=== PATIENT | male | born 1955 | race American Indian/Alaskan Native ===

== ENCOUNTER 2018-07-23 21:49 | Observation (INO) | payer MEDICARE, MEDICAID ==
--- NOTE | 2018-07-23 22:22 | EDM.PDOC ---
ED HPI GENERAL MEDICAL PROBLEM - General Chief Complaint: Chest Pain Stated Complaint: chest pain Time Seen by Provider: 07/23/18 22:11 Source of Information: Reports: Patient, EMS, EMS Notes Reviewed History Limitations: Reports: No Limitations - History of Present Illness INITIAL COMMENTS - FREE TEXT/NARRATIVE: Patient is a 62-year-old gentleman who presents to the emergency Department this evening via EMS secondary to complaint of chest pain. Patient was given 4 baby aspirins and 2 nitroglycerin at the [facility], also given 4 mg of morphine on EMS transport. Pain began at 2000 tonight and described as aching, left lower chest and epigastric, and constant. This occurred at rest. Patient denies shortness of breath, fever, headache, nausea, vomiting, diarrhea, any alcohol intake for past 3 months. EKG performed by EMS was sent to [facility] for cardiology read. Personnel Consultant told EMS deckhand oyster dredge that the EKG was same as previous, and there was no concern for acute process Onset: Today Onset Date: 07/23/18 Onset Time: 20:00 Duration: Hour(s):, Waxing/Waning Location: Reports: Chest Quality: Reports: Ache Severity: Mild Improves with: Reports: None Worsens with: Reports: None Context: Reports: Other (At rest) Associated Symptoms: Reports: No Other Symptoms. Denies: Nausea/Vomiting, Shortness of Breath chest Pain Score (Numeric/FACES): 8 - Related Data Allergies Allergy/AdvReac Type Severity Reaction Status Date / Time mustard Allergy Vomiting Verified 07/23/18 22:30 Home Meds: Home Meds metFORMIN [Glucophage] 1 tab PO DAILY 08/25/15 [History] Aspirin 81 mg PO DAILY 03/14/17 [History] Folic Acid 800 mcg PO DAILY 03/15/17 [History] Insulin Aspart [NovoLOG] 13 unit SQ TID 03/15/17 [History] Insulin Detemir [Levemir] 31 unit SQ ASDIRECTED 03/15/17 [History] Lisinopril 20 mg PO DAILY 03/15/17 [History] Multivitamin [Daily Multiple Vitamin] 1 each PO DAILY 03/15/17 [History] Pantoprazole [ProTONIX] 40 mg PO ACBREAKFAST 03/15/17 [History] Thiamine HCl 100 mg PO BID 03/15/17 [History] atorvaSTATin [Lipitor] 20 mg PO ASDIRECTED 03/15/17 [History] Acetaminophen [Pain & Fever] 650 mg PO Q8H PRN 07/31/17 [History] Ibuprofen 400 mg PO Q4H PRN 07/31/17 [History] Magnesium Chloride [Slow-Mag] 2 tab PO BID 07/31/17 [History] Nitroglycerin 0.4 mg SL ASDIRECTED PRN 07/31/17 [History] Vitamin B Complex 1 each PO BID 07/31/17 [History] cloNIDine [cloNIDine HCl] 0.1 mg PO ASDIRECTED PRN 07/31/17 [History] hydrOXYzine HCl [Atarax] 25 mg PO BID 07/31/17 [History] hydroCHLOROthiazide [Hydrochlorothiazide] 12.5 mg PO DAILY 07/31/17 [History] levETIRAcetam [Keppra] 500 mg PO BID 07/31/17 [History] Past Medical History HEENT History: Reports: None Cardiovascular History: Reports: High Cholesterol, Hypertension Respiratory History: Reports: None Gastrointestinal History: Reports: Cirrhosis, Gastritis, GERD Genitourinary History: Reports: BPH, Renal Disease Musculoskeletal History: Reports: Other (See Below) Other Musculoskeletal History: muscle weakness Neurological History: Reports: TIA, Other (See Below) Other Neuro History: TBI. personality disorder Psychiatric History: Reports: Addiction Endocrine/Metabolic History: Reports: Diabetes, Type II Hematologic History: Reports: None Immunologic History: Reports: None Oncologic (Cancer) History: Reports: None Dermatologic History: Reports: None - Infectious Disease History Infectious Disease History: Reports: None - Past Surgical History Head Surgeries/Procedures: Reports: None GI Surgical History: Reports: Other (See Below) Social & Family History - Family History Family Medical History: Noncontributory - Caffeine Use Caffeine Use: Reports: Coffee ED ROS GENERAL - Review of Systems Review Of Systems: ROS reveals no pertinent complaints other than HPI. Constitutional: Reports: No Symptoms HEENT: Reports: No Symptoms Respiratory: Reports: No Symptoms Cardiovascular: Reports: Chest Pain Endocrine: Reports: No Symptoms GI/Abdominal: Reports: No Symptoms : Reports: No Symptoms Musculoskeletal: Reports: No Symptoms Skin: Reports: No Symptoms Neurological: Reports: No Symptoms Psychiatric: Reports: No Symptoms Hematologic/Lymphatic: Reports: No Symptoms Immunologic: Reports: No Symptoms ED EXAM, GENERAL - Physical Exam Exam: See Below Exam Limited By: No Limitations General Appearance: Alert, WD/WN, No Apparent Distress Eye Exam: Bilateral Eye: Normal Inspection Nose: Normal Inspection, Normal Mucosa, No Blood Throat/Mouth: Normal Inspection, Normal Oropharynx, No Airway Compromise Head: Atraumatic, Normocephalic Neck: Normal Inspection, Supple, Non-Tender Respiratory/Chest: No Respiratory Distress, Lungs Clear, Normal Breath Sounds, No Accessory Muscle Use Cardiovascular: Regular Rate, Rhythm, No Murmur GI/Abdominal: Normal Bowel Sounds, Soft, Non-Tender, No Abnormal Bruit Back Exam: Normal Inspection. No: CVA Tenderness (L), CVA Tenderness (R) Extremities: Normal Inspection, No Pedal Edema Neurological: Alert, Oriented, Normal Cognition Psychiatric: Normal Affect, Normal Mood Skin Exam: Warm, Dry, Intact, Normal Color, No Rash EKG INTERPRETATION EKG Date: 07/23/18 Time: 22:00 Rhythm: Other (Sinus rhythm with first-degree AV block) Rate (Beats/Min): 64 [place]: LAD-Left [place] Deviation P-Wave: Present QRS: Normal ST-T: Normal QT: Normal Comparison: No Change (Sep 16 2017) Course - Vital Signs Last Recorded V/S: Last Vital Signs Temp 97.6 F 07/23/18 21:49 Pulse 67 07/23/18 21:49 Resp 21 H 07/23/18 21:49 BP 111/56 L 07/23/18 21:49 Pulse Ox 98 07/23/18 21:49 - Orders/Labs/Meds Orders: Active Orders 24 hr Category Date Time Status EKG Documentation Completion [RC] ASDIRECTED Care 07/23/18 22:06 Active Chest 2V [CR] Stat Exams 07/23/18 22:05 Ordered EKG 12 Lead [EK] Routine Ther 07/23/18 22:05 Ordered Labs: Laboratory Tests 07/23/18 07/23/18 07/23/18 Range/Units 22:00 22:00 22:00 WBC 5.71 (5.00-10.00) 10^3/uL RBC 4.19 L (4.50-6.00) 10^6/uL Hgb 11.9 L (13.0-17.0) g/dL Hct 35.0 L (40.0-52.0) % MCV 83.5 (82.0-92.0) fL MCH 28.4 (27.0-31.0) pg MCHC 34.0 (32.0-36.0) g/dL RDW 13.3 (11.5-14.5) % Plt Count 180 (150-400) 10^3/uL MPV 9.9 (7.4-10.4) fL Immature Gran % (Auto) 0.4 (0.0-5.0) % Neut % (Auto) 45.1 L (50.0-70.0) % Lymph % (Auto) 33.6 (20.0-40.0) % [place] % (Auto) 11.6 H (2.0-8.0) % Eos % (Auto) 8.8 H (1.0-3.0) % Baso % (Auto) 0.5 (0.0-1.0) % Immature Gran # (Auto) 0.02 (0.00-0.50) 10^3/uL Neut # (Auto) 2.58 (2.50-7.00) 10^3/uL Lymph # (Auto) 1.92 (1.00-4.00) 10^3/uL [place] # (Auto) 0.66 (0.10-0.80) 10^3/uL Eos # (Auto) 0.50 H (0.10-0.30) 10^3/uL Baso # (Auto) 0.03 (0.00-0.10) 10^3/uL Sodium 141 (136-145) mmol/L Potassium 4.2 (3.3-5.3) mmol/L Chloride 108 (98-115) mmol/L Carbon Dioxide 20.6 L (21.0-32.0) mmol/L Anion Gap 16.6 H (5-15) mmol/L BUN 19 (6-25) mg/dL Creatinine 0.78 (0.51-1.17) mg/dL Est Cr Clr Drug Dosing 94.12 mL/min Estimated GFR (MDRD) > 60 mL/min Glucose 106 H (75 - 99) mg/dL Calcium 8.7 (8.7-10.3) mg/dL Total Bilirubin 0.5 (0.2-1.0) mg/dL AST 72 H (15-37) U/L ALT 69 (12-78) U/L Alkaline Phosphatase 149 H (46-116) IU/L Troponin I 0.06 (0.00-0.070) ng/mL Total Protein 7.8 (6.4-8.2) g/dL Albumin 3.19 (3.00-4.80) g/dL Lipase 128 (73-393) U/L Ethyl Alcohol 0 (NONE DETECTED) mg/dL - Radiology Interpretation Free Text/Narrative:: Chest x-ray shows no acute cardiopulmonary process - Re-Assessments/Exams Free Text/Narrative Re-Assessment/Exam: 07/23/18 23:09 Patient afebrile, vital signs stable, chest discomfort resolved. Discussed case with Jacquelyn Perdomo from [facility], she will admit for observation and follow. Departure - Departure Time of Disposition: 23:10 Disposition: Refer to Observation Condition: Fair Clinical Impression: Atypical chest pain Forms: ED Department Discharge - My Orders Last 24 Hours: My Active Orders 07/23/18 22:05 Chest 2V [CR] Stat EKG 12 Lead [EK] Routine 07/23/18 22:06 EKG Documentation Completion [RC] ASDIRECTED - Assessment/Plan Last 24 Hours: My Active Orders 07/23/18 22:05 Chest 2V [CR] Stat EKG 12 Lead [EK] Routine 07/23/18 22:06 EKG Documentation Completion [RC] ASDIRECTED Assessment:: Chest pain Plan: Admitted for observation
[2018-07-23 23:00] LABS: ANION GAP 16.6 mmol/L (5-15); CHLORIDE,CL 108 mmol/L (98-115); SODIUM,NA 141 mmol/L (136-145)
[2018-07-24] MEDS: Melatonin 3 MG Tab PO SCH (01:12)
[2018-07-24] MEDS ORDERED: EPINEPHrine 1:10,000 1 MG/10 ML Syringe IVPUSH PRN (02:27)
[2018-07-24] MEDS ORDERED: Atropine 0.1 MG/ML 10 ML Syringe IVPUSH PRN (02:27)
[2018-07-24] MEDS ORDERED: Lidocaine 2% 100 MG/5 ML Syringe IVPUSH PRN (02:27)
[2018-07-24] MEDS ORDERED: Nitroglycerin 0.4 MG Tab.SL SL PRN (02:27)
[2018-07-24 06:46] VITALS: BP 104/63
--- NOTE | 2018-07-24 08:05 | CR ---
[id number] RAD/RAD Chest PA And Lateral EXAM: RAD Chest PA And Lateral INDICATION: CHEST PAIN COMPARISON: July 31, 2017. DISCUSSION: Cardiomediastinal silhouette is stable in size and contour. Right infrahilar opacity not seen previously. Finding is nonspecific. Correlate for signs of infection, as developing pneumonia is possible. IMPRESSION: New right infrahilar opacity, described above. Shawn Interiano MD 07/24/18 0804 Thank you for allowing us to participate in the care of your patient.
--- NOTE | 2018-07-24 11:19 | PCM.HP ---
H&P History of Present Illness - General Date of Service: 07/24/18 Admit Problem/Dx: Admission Diagnosis/Problem Admission Diagnosis/Problem Chest pain Source of Information: Patient, Old Records History Limitations: Reports: No Limitations chest Pain Score (Numeric/FACES): 3 - Related Data Allergies/Adverse Reactions: Allergies Allergy/AdvReac Type Severity Reaction Status Date / Time mustard Allergy Vomiting Verified 07/23/18 22:30 Home Medications: Home Meds metFORMIN [Glucophage] 1 tab PO BID 08/25/15 [History] Aspirin 81 mg PO DAILY 03/14/17 [History] Folic Acid 800 mcg PO DAILY 03/15/17 [History] Insulin Aspart [NovoLOG] 15 unit SQ TID 03/15/17 [History] Multivitamin [Daily Multiple Vitamin] 1 each PO DAILY 03/15/17 [History] Thiamine HCl 100 mg PO DAILY 03/15/17 [History] atorvaSTATin [Lipitor] 20 mg PO DAILY 03/15/17 [History] Acetaminophen [Pain & Fever] 650 mg PO Q6H PRN 07/31/17 [History] Nitroglycerin 0.4 mg SL ASDIRECTED PRN 07/31/17 [History] Vitamin B Complex 1 each PO DAILY 07/31/17 [History] Albuterol [Proventil HFA] 1 puff INH Q4H PRN 07/24/18 [History] Bacitracin [Bacitracin Oint] 1 applic TOP DAILY 07/24/18 [History] Carvedilol 6.25 mg PO BID 07/24/18 [History] [place]/Min Oil/Deanne/Wool Alcoh [Eucerin Creme] 1 applic TOP BID 07/24/18 [ History] Cyanocobalamin (Vitamin B-12) [Vitamin B-12] 250 mcg PO DAILY 07/24/18 [History] Finasteride 5 mg PO DAILY 07/24/18 [History] Gabapentin [Neurontin] 300 mg PO TID 07/24/18 [History] Insulin Degludec [Tresiba] 50 unit SQ BID 07/24/18 [History] Insulin Degludec [Tresiba] 100 unit SQ DAILY 07/24/18 [History] Lisinopril 10 mg PO DAILY 07/24/18 [History] Melatonin 5 mg PO BEDTIME 07/24/18 [History] OLANZapine 20 mg PO 0900 07/24/18 [History] Omeprazole 20 mg PO BID 07/24/18 [History] Ranitidine [Zantac] 150 mg PO BID 07/24/18 [History] Past Medical History HEENT History: Reports: None Cardiovascular History: Reports: High Cholesterol, Hypertension Respiratory History: Reports: SOB Gastrointestinal History: Reports: Cirrhosis, Gastritis, GERD Genitourinary History: Reports: BPH, Renal Disease Musculoskeletal History: Reports: Fracture, Other (See Below) Other Musculoskeletal History: muscle weakness Neurological History: Reports: CVA, TIA, Other (See Below) Other Neuro History: TBI. personality disorder Psychiatric History: Reports: Addiction, Anxiety, Depression Other Psychiatric History: insomnia Endocrine/Metabolic History: Reports: Diabetes, Type II, Obesity/BMI 30+ Hematologic History: Reports: B12 Deficiency Immunologic History: Reports: None Oncologic (Cancer) History: Reports: None Dermatologic History: Reports: Decubitus Ulcer, Other (See Below) Other Dermatologic History: 3rd r. toe - Infectious Disease History Infectious Disease History: Reports: MRSA - Past Surgical History Head Surgeries/Procedures: Reports: None GI Surgical History: Reports: Other (See Below) Musculoskeletal Surgical History: Reports: Shoulder Surgery Social & Family History - Family History Family Medical History: Noncontributory - Tobacco Use Smoking Status *Q: Never Smoker Second Hand Smoke Exposure: No - Caffeine Use Caffeine Use: Reports: None - Alcohol Use Days Per Week of Alcohol Use: 7 Number of Drinks Per Day: 1 Total Drinks Per Week: 7 Date of Last Drink: 04/24/18 - Recreational Drug Use Recreational Drug Use: No Exam - Vital Signs Vital Signs: Last Vital Signs Temp 98.4 F 07/24/18 06:45 Pulse 67 07/24/18 06:45 Resp 18 07/24/18 06:45 BP 104/63 07/24/18 06:45 Pulse Ox 97 07/24/18 06:45 Weight: 233 lb - Patient Data Lab Results Last 24 hrs: Laboratory Results - last 24 hr 07/23/18 07/23/18 07/23/18 Range/Units 22:00 22:00 22:00 WBC 5.71 (5.00-10.00) 10^3/uL RBC 4.19 L (4.50-6.00) 10^6/uL Hgb 11.9 L (13.0-17.0) g/dL Hct 35.0 L (40.0-52.0) % MCV 83.5 (82.0-92.0) fL MCH 28.4 (27.0-31.0) pg MCHC 34.0 (32.0-36.0) g/dL RDW 13.3 (11.5-14.5) % Plt Count 180 (150-400) 10^3/uL MPV 9.9 (7.4-10.4) fL Immature Gran % (Auto) 0.4 (0.0-5.0) % Neut % (Auto) 45.1 L (50.0-70.0) % Lymph % (Auto) 33.6 (20.0-40.0) % [place] % (Auto) 11.6 H (2.0-8.0) % Eos % (Auto) 8.8 H (1.0-3.0) % Baso % (Auto) 0.5 (0.0-1.0) % Immature Gran # (Auto) 0.02 (0.00-0.50) 10^3/uL Neut # (Auto) 2.58 (2.50-7.00) 10^3/uL Lymph # (Auto) 1.92 (1.00-4.00) 10^3/uL [place] # (Auto) 0.66 (0.10-0.80) 10^3/uL Eos # (Auto) 0.50 H (0.10-0.30) 10^3/uL Baso # (Auto) 0.03 (0.00-0.10) 10^3/uL Sodium 141 (136-145) mmol/L Potassium 4.2 (3.3-5.3) mmol/L Chloride 108 (98-115) mmol/L Carbon Dioxide 20.6 L (21.0-32.0) mmol/L Anion Gap 16.6 H (5-15) mmol/L BUN 19 (6-25) mg/dL Creatinine 0.78 (0.51-1.17) mg/dL Est Cr Clr Drug Dosing 94.12 mL/min Estimated GFR (MDRD) > 60 mL/min Glucose 106 H (75 - 99) mg/dL POC Glucose (74-106) mg/dl Calcium 8.7 (8.7-10.3) mg/dL Total Bilirubin 0.5 (0.2-1.0) mg/dL AST 72 H (15-37) U/L ALT 69 (12-78) U/L Alkaline Phosphatase 149 H (46-116) IU/L Troponin I 0.06 (0.00-0.070) ng/mL Total Protein 7.8 (6.4-8.2) g/dL Albumin 3.19 (3.00-4.80) g/dL Lipase 128 (73-393) U/L Ethyl Alcohol 0 (NONE DETECTED) mg/dL 07/24/18 07/24/18 Range/Units 06:20 08:23 WBC (5.00-10.00) 10^3/uL RBC (4.50-6.00) 10^6/uL Hgb (13.0-17.0) g/dL Hct (40.0-52.0) % MCV (82.0-92.0) fL MCH (27.0-31.0) pg MCHC (32.0-36.0) g/dL RDW (11.5-14.5) % Plt Count (150-400) 10^3/uL MPV (7.4-10.4) fL Immature Gran % (Auto) (0.0-5.0) % Neut % (Auto) (50.0-70.0) % Lymph % (Auto) (20.0-40.0) % [place] % (Auto) (2.0-8.0) % Eos % (Auto) (1.0-3.0) % Baso % (Auto) (0.0-1.0) % Immature Gran # (Auto) (0.00-0.50) 10^3/uL Neut # (Auto) (2.50-7.00) 10^3/uL Lymph # (Auto) (1.00-4.00) 10^3/uL [place] # (Auto) (0.10-0.80) 10^3/uL Eos # (Auto) (0.10-0.30) 10^3/uL Baso # (Auto) (0.00-0.10) 10^3/uL Sodium (136-145) mmol/L Potassium (3.3-5.3) mmol/L Chloride (98-115) mmol/L Carbon Dioxide (21.0-32.0) mmol/L Anion Gap (5-15) mmol/L BUN (6-25) mg/dL Creatinine (0.51-1.17) mg/dL Est Cr Clr Drug Dosing mL/min Estimated GFR (MDRD) mL/min Glucose (75 - 99) mg/dL POC Glucose 118 H (74-106) mg/dl Calcium (8.7-10.3) mg/dL Total Bilirubin (0.2-1.0) mg/dL AST (15-37) U/L ALT (12-78) U/L Alkaline Phosphatase (46-116) IU/L Troponin I < 0.04 (0.00-0.070) ng/mL Total Protein (6.4-8.2) g/dL Albumin (3.00-4.80) g/dL Lipase (73-393) U/L Ethyl Alcohol (NONE DETECTED) mg/dL Result Diagrams: 07/23/18 22:00 07/23/18 22:00 Problem List Initiated/Reviewed/Updated: Yes Orders Last 24hrs: Active Orders 24 hr Category Date Time Status Patient Status [ADT] Routine ADT 07/23/18 23:11 Ordered Blood Glucose Check, Bedside [RC] TIDMEALS Care 07/24/18 00:36 Active Oxygen Therapy [RC] PRN Care 07/23/18 23:11 Active VTE/DVT Education [RC] PER UNIT ROUTINE Care 07/23/18 23:11 Active Vital Signs [RC] 0300,0700,1100,1500,1900,2300 Care 07/23/18 23:11 Active [employer] Diet [DIET] Diet 07/24/18 Breakfast Active Atropine [Atropine 0.1 MG/ML] Med 07/24/18 02:27 Active 0 mg IVPUSH ASDIRECTED PRN EPINEPHrine [EPINEPHrine 1:10,000] Med 07/24/18 02:27 Active 1 mg IVPUSH ASDIRECTED PRN Lidocaine 2% [Xylocaine 2%] Med 07/24/18 02:27 Active 0 mg IVPUSH ASDIRECTED PRN Melatonin Med 07/24/18 00:59 Active 6 mg PO BEDTIME Nitroglycerin [Nitrostat] Med 07/24/18 02:27 Active 0.4 mg SL ASDIRECTED PRN Resuscitation Status Routine Resus Stat 07/23/18 23:11 Ordered EKG 12 Lead [EK] Routine Ther 07/23/18 22:05 Ordered Medication Orders Atropine Sulfate (Atropine 0.1 Mg/Ml) 0 mg IVPUSH ASDIRECTED PRN PRN Reason: Heart Epinephrine HCl (Epinephrine 1:10,000) 1 mg IVPUSH ASDIRECTED PRN PRN Reason: Heart Lidocaine HCl (Xylocaine 2%) 0 mg IVPUSH ASDIRECTED PRN PRN Reason: Heart Melatonin (Melatonin) 6 mg PO BEDTIME JOURDAN Last Admin: 07/24/18 01:12 Dose: 6 mg Nitroglycerin (Nitrostat) 0.4 mg SL ASDIRECTED PRN PRN Reason: Heart Assessment/Plan Comment:: History of present illness 63-year-old male who resides in a local skilled nursing is admitted to the ED into observation last night due to complaints of chest pain. She stated the pain occurred at rest and it was more into his left lower chest and epigastric which was quite constant. care home staff gave the patient 4 baby aspirins along with 2 nitroglycerin and EMS in route to the hospital administered 4 mg of morphine. She stated his pain began at 1999 on the night of admission and he described it as aching, left lower chest and epigastric, and constant. At the time he was evaluated in the ED he stated he had no shortness of breath, fever, headache, nausea, vomiting, diarrhea, EKG performed by EMS was sent to [facility] for cardiology read. Associate Professor Of Biology told EMS roller staker that the EKG was same as previous, and there was no concern for acute process. He was admitted for rule out [place]. His initial troponin was normal. She does have significant risk factors including obesity, diabetes mellitus, hyperlipidemia, hypertension. Does take PPI therapy. Recently evaluated at the [facility], [place] was his insulin and metformin was increased Due to a rising hemoglobin A1c of 13%. Primary hospital problems Rule out [place], this has been ruled out via EKG and biochemical markers negative In review of his recent lower extremity arterial ultrasound patient demonstrates calcified atherosclerotic disease which will most definitely limits evaluation of the ABIs. However no significant macrovascular arterial insufficiency in either lower extremity at rest. Disposition, patient has ruled out for ACS however pretest probability of CAD is intermediate 2/2 hyperlipidemia, uncontrolled diabetes, hypertension and obesity. Will recommend outpatient stress imaging as doubtful patient can exercise
--- NOTE | 2018-07-24 11:56 | PCM.DCSUM1 ---
Discharge Summary - Hospital Course Diagnosis: Stroke: No - Discharge Data Discharge Date: 07/24/18 Discharge Disposition: DC/Tfer to [facility] Condition: Good - Patient Instructions Diet: Diabetic Diet Activity: As Tolerated Driving: Do Not Drive Showering/Bathing: May Shower Notify Provider of: Increased Pain, Nausea and/or Vomiting - Discharge Plan *PRESCRIPTION DRUG MONITORING PROGRAM REVIEWED*: Not Applicable *COPY OF PRESCRIPTION DRUG MONITORING REPORT IN PATIENT ANDREI: Not Applicable Prescriptions/Med Rec: Isosorbide Mononitrate [Imdur] 30 mg PO DAILY #30 tab.er Home Medications: Home Meds metFORMIN [Glucophage] 1 tab PO BID 08/25/15 [History] Aspirin 81 mg PO DAILY 03/14/17 [History] Folic Acid 800 mcg PO DAILY 03/15/17 [History] Insulin Aspart [NovoLOG] 15 unit SQ TID 03/15/17 [History] Multivitamin [Daily Multiple Vitamin] 1 each PO DAILY 03/15/17 [History] Thiamine HCl 100 mg PO DAILY 03/15/17 [History] atorvaSTATin [Lipitor] 20 mg PO DAILY 03/15/17 [History] Acetaminophen [Pain & Fever] 650 mg PO Q6H PRN 07/31/17 [History] Nitroglycerin 0.4 mg SL ASDIRECTED PRN 07/31/17 [History] Vitamin B Complex 1 each PO DAILY 07/31/17 [History] Albuterol [Proventil HFA] 1 puff INH Q4H PRN 07/24/18 [History] Bacitracin [Bacitracin Oint] 1 applic TOP DAILY 07/24/18 [History] Carvedilol 6.25 mg PO BID 07/24/18 [History] [place]/Min Oil/Deanne/Wool Alcoh [Eucerin Creme] 1 applic TOP BID 07/24/18 [ History] Cyanocobalamin (Vitamin B-12) [Vitamin B-12] 250 mcg PO DAILY 07/24/18 [History] Finasteride 5 mg PO DAILY 07/24/18 [History] Gabapentin [Neurontin] 300 mg PO TID 07/24/18 [History] Insulin Degludec [Tresiba] 50 unit SQ BID 07/24/18 [History] Insulin Degludec [Tresiba] 100 unit SQ DAILY 07/24/18 [History] Isosorbide Mononitrate [Imdur] 30 mg PO DAILY #30 tab.er 07/24/18 [Rx] Lisinopril 10 mg PO DAILY 07/24/18 [History] Melatonin 5 mg PO BEDTIME 07/24/18 [History] OLANZapine 20 mg PO 0900 07/24/18 [History] Omeprazole 20 mg PO BID 07/24/18 [History] Forms: ED Department Discharge - Discharge Summary/Plan Comment DC Time >30 min.: Yes Discharge Summary/Plan Comment: Discontinue Zantac as he is currently on PPI Imdur 30 mg ER newly added - Patient Data Vitals - Most Recent: Last Vital Signs Temp 98.4 F 07/24/18 06:45 Pulse 67 07/24/18 06:45 Resp 18 07/24/18 06:45 BP 104/63 07/24/18 06:45 Pulse Ox 97 07/24/18 06:45 Weight - Most Recent: 233 lb I&O - Last 24 hours: Intake & Output 07/23/18 07/24/18 07/24/18 22:59 06:59 14:59 Intake Total 640 Output Total 450 Balance 190 Lab Results - Last 24 hrs: Laboratory Results - last 24 hr 07/23/18 07/23/18 07/23/18 Range/Units 22:00 22:00 22:00 WBC 5.71 (5.00-10.00) 10^3/uL RBC 4.19 L (4.50-6.00) 10^6/uL Hgb 11.9 L (13.0-17.0) g/dL Hct 35.0 L (40.0-52.0) % MCV 83.5 (82.0-92.0) fL MCH 28.4 (27.0-31.0) pg MCHC 34.0 (32.0-36.0) g/dL RDW 13.3 (11.5-14.5) % Plt Count 180 (150-400) 10^3/uL MPV 9.9 (7.4-10.4) fL Immature Gran % (Auto) 0.4 (0.0-5.0) % Neut % (Auto) 45.1 L (50.0-70.0) % Lymph % (Auto) 33.6 (20.0-40.0) % [place] % (Auto) 11.6 H (2.0-8.0) % Eos % (Auto) 8.8 H (1.0-3.0) % Baso % (Auto) 0.5 (0.0-1.0) % Immature Gran # (Auto) 0.02 (0.00-0.50) 10^3/uL Neut # (Auto) 2.58 (2.50-7.00) 10^3/uL Lymph # (Auto) 1.92 (1.00-4.00) 10^3/uL [place] # (Auto) 0.66 (0.10-0.80) 10^3/uL Eos # (Auto) 0.50 H (0.10-0.30) 10^3/uL Baso # (Auto) 0.03 (0.00-0.10) 10^3/uL Sodium 141 (136-145) mmol/L Potassium 4.2 (3.3-5.3) mmol/L Chloride 108 (98-115) mmol/L Carbon Dioxide 20.6 L (21.0-32.0) mmol/L Anion Gap 16.6 H (5-15) mmol/L BUN 19 (6-25) mg/dL Creatinine 0.78 (0.51-1.17) mg/dL Est Cr Clr Drug Dosing 94.12 mL/min Estimated GFR (MDRD) > 60 mL/min Glucose 106 H (75 - 99) mg/dL POC Glucose (74-106) mg/dl Calcium 8.7 (8.7-10.3) mg/dL Total Bilirubin 0.5 (0.2-1.0) mg/dL AST 72 H (15-37) U/L ALT 69 (12-78) U/L Alkaline Phosphatase 149 H (46-116) IU/L Troponin I 0.06 (0.00-0.070) ng/mL Total Protein 7.8 (6.4-8.2) g/dL Albumin 3.19 (3.00-4.80) g/dL Lipase 128 (73-393) U/L Ethyl Alcohol 0 (NONE DETECTED) mg/dL 07/24/18 07/24/18 07/24/18 Range/Units 06:20 08:23 11:07 WBC (5.00-10.00) 10^3/uL RBC (4.50-6.00) 10^6/uL Hgb (13.0-17.0) g/dL Hct (40.0-52.0) % MCV (82.0-92.0) fL MCH (27.0-31.0) pg MCHC (32.0-36.0) g/dL RDW (11.5-14.5) % Plt Count (150-400) 10^3/uL MPV (7.4-10.4) fL Immature Gran % (Auto) (0.0-5.0) % Neut % (Auto) (50.0-70.0) % Lymph % (Auto) (20.0-40.0) % [place] % (Auto) (2.0-8.0) % Eos % (Auto) (1.0-3.0) % Baso % (Auto) (0.0-1.0) % Immature Gran # (Auto) (0.00-0.50) 10^3/uL Neut # (Auto) (2.50-7.00) 10^3/uL Lymph # (Auto) (1.00-4.00) 10^3/uL [place] # (Auto) (0.10-0.80) 10^3/uL Eos # (Auto) (0.10-0.30) 10^3/uL Baso # (Auto) (0.00-0.10) 10^3/uL Sodium (136-145) mmol/L Potassium (3.3-5.3) mmol/L Chloride (98-115) mmol/L Carbon Dioxide (21.0-32.0) mmol/L Anion Gap (5-15) mmol/L BUN (6-25) mg/dL Creatinine (0.51-1.17) mg/dL Est Cr Clr Drug Dosing mL/min Estimated GFR (MDRD) mL/min Glucose (75 - 99) mg/dL POC Glucose 118 H 236 H (74-106) mg/dl Calcium (8.7-10.3) mg/dL Total Bilirubin (0.2-1.0) mg/dL AST (15-37) U/L ALT (12-78) U/L Alkaline Phosphatase (46-116) IU/L Troponin I < 0.04 (0.00-0.070) ng/mL Total Protein (6.4-8.2) g/dL Albumin (3.00-4.80) g/dL Lipase (73-393) U/L Ethyl Alcohol (NONE DETECTED) mg/dL Med Orders - Current: Current Medications Atropine Sulfate (Atropine 0.1 Mg/Ml) 0 mg IVPUSH ASDIRECTED PRN PRN Reason: Heart Epinephrine HCl (Epinephrine 1:10,000) 1 mg IVPUSH ASDIRECTED PRN PRN Reason: Heart Lidocaine HCl (Xylocaine 2%) 0 mg IVPUSH ASDIRECTED PRN PRN Reason: Heart Melatonin (Melatonin) 6 mg PO BEDTIME JOURDAN Last Admin: 07/24/18 01:12 Dose: 6 mg Nitroglycerin (Nitrostat) 0.4 mg SL ASDIRECTED PRN PRN Reason: Heart
[2018-07-24] MEDS ORDERED: Melatonin 3 MG Tab PO SCH (21:00)
== END 2018-07-24 13:08 ==
LOC: KA.ED 21:49 → KA.MS 23:25 → KA.ED 23:25
PROVIDERS: ADMIT Physician Assistant Medical; ATTEND Nurse Practitioner Family
DX: R07.9 Chest pain, unspecified (principal); I10 Essential (primary) hypertension; E78.00 Pure hypercholesterolemia, unspecified; E11.9 Type 2 diabetes mellitus without complications; E66.9 Obesity, unspecified; Z68.32 Body mass index [BMI] 32.0-32.9, adult; E78.5 Hyperlipidemia, unspecified; Z79.4 Long term (current) use of insulin; Z79.899 Other long term (current) drug therapy; Z91.018 Allergy to other foods
CPT/HCPCS: 36415; 71046; 80053; 82962; 83690; 84484; 85025; 93005; 99285-25; G0378; G0480

== ENCOUNTER 2018-07-25 23:50 | Observation (INO) | payer MEDICARE, MEDICAID ==
[2018-07-26] MEDS: Aspirin 81 MG Tab.Chew PO ONE (00:30)
--- NOTE | 2018-07-26 00:48 | EDM.PDOC ---
ED HPI GENERAL MEDICAL PROBLEM - General Chief Complaint: Chest Pain Stated Complaint: chest pain Time Seen by Provider: 07/26/18 00:20 Source of Information: Reports: Patient, RN History Limitations: Reports: No Limitations - History of Present Illness INITIAL COMMENTS - FREE TEXT/NARRATIVE: 63-year-old gentleman resident not [place] longterm presents to emergency room brought in by EMS with complaints of chest pain. Chest pain started approximately 10:00 this evening he described the pain is short intermittent sharp pain lasting 3-4 seconds and occurring about every 10 minutes pain radiates down to his epigastric to left upper quadrant. This is similar to the episode that he was experiencing 2 days ago when he was brought into the emergency room he had an EKG shows normal sinus rhythm with left axis deviation nonspecific intraventricular conduction delay heart rate was 65 bpm there is no ST elevation. This is same as his prior EKG 2 days ago. Troponin level is normal BMP is less than 100. His white count is not elevated. 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 He quit drinking alcohol about 3-1/ 2 months ago. He was discharged back to the longterm the following day. In route a transportation he was given 1 nitroglycerin and had been given to prior nitroglycerin at the longterm he reports really no difference of his symptoms or pain. He rates it a 9 out of 10 when it occurs. Throughout his entire stay he is been conversive and appears to be very quite comfortable. He' s not had prior coronary catheterization. He is only on a baby aspirin daily no anticoagulation otherwise is seen in his medical chart upon review. Onset Date: 07/25/18 Onset Time: 10:00 Duration: Hour(s):, Intermittent Location: Reports: Abdomen Quality: Reports: Sharp Severity: Moderate Improves with: Reports: None Worsens with: Reports: None Associated Symptoms: Reports: Chest Pain, Shortness of Breath. Denies: Confusion, Cough, Diaphoresis, Fever/Chills, Headaches, Nausea/Vomiting, Syncope Treatments [employer]: Reports: Nitroglycerin (3 nitro prior to arrival) - Related Data Allergies Allergy/AdvReac Type Severity Reaction Status Date / Time mustard Allergy Vomiting Verified 07/26/18 00:11 Home Meds: Home Meds metFORMIN [Glucophage] 1 tab PO BID 08/25/15 [History] Aspirin 81 mg PO DAILY 03/14/17 [History] Folic Acid 800 mcg PO DAILY 03/15/17 [History] Insulin Aspart [NovoLOG] 15 unit SQ TID 03/15/17 [History] Multivitamin [Daily Multiple Vitamin] 1 each PO DAILY 03/15/17 [History] Thiamine HCl 100 mg PO DAILY 03/15/17 [History] atorvaSTATin [Lipitor] 20 mg PO DAILY 03/15/17 [History] Acetaminophen [Pain & Fever] 650 mg PO Q6H PRN 07/31/17 [History] Nitroglycerin 0.4 mg SL ASDIRECTED PRN 07/31/17 [History] Vitamin B Complex 1 each PO DAILY 07/31/17 [History] Albuterol [Proventil HFA] 1 puff INH Q4H PRN 07/24/18 [History] Bacitracin [Bacitracin Oint] 1 applic TOP DAILY 07/24/18 [History] Carvedilol 6.25 mg PO BID 07/24/18 [History] [place]/Min Oil/Deanne/Wool Alcoh [Eucerin Creme] 1 applic TOP BID 07/24/18 [ History] Cyanocobalamin (Vitamin B-12) [Vitamin B-12] 250 mcg PO DAILY 07/24/18 [History] Finasteride 5 mg PO DAILY 07/24/18 [History] Gabapentin [Neurontin] 300 mg PO TID 07/24/18 [History] Insulin Degludec [Tresiba] 50 unit SQ BID 07/24/18 [History] Insulin Degludec [Tresiba] 100 unit SQ DAILY 07/24/18 [History] Isosorbide Mononitrate [Imdur] 30 mg PO DAILY #30 tab.er 07/24/18 [Rx] Lisinopril 10 mg PO DAILY 07/24/18 [History] Melatonin 5 mg PO BEDTIME 07/24/18 [History] OLANZapine 20 mg PO 0900 07/24/18 [History] Omeprazole 20 mg PO BID 07/24/18 [History] Past Medical History HEENT History: Reports: None Cardiovascular History: Reports: High Cholesterol, Hypertension Respiratory History: Reports: SOB Gastrointestinal History: Reports: Cirrhosis, Gastritis, GERD Genitourinary History: Reports: BPH, Renal Disease Musculoskeletal History: Reports: Fracture, Other (See Below) Other Musculoskeletal History: muscle weakness Neurological History: Reports: CVA, TIA, Other (See Below) Other Neuro History: TBI. personality disorder Psychiatric History: Reports: Addiction, Anxiety, Depression Other Psychiatric History: insomnia Endocrine/Metabolic History: Reports: Diabetes, Type II, Obesity/BMI 30+ Hematologic History: Reports: B12 Deficiency Immunologic History: Reports: None Oncologic (Cancer) History: Reports: None Dermatologic History: Reports: Decubitus Ulcer, Other (See Below) Other Dermatologic History: 3rd r. toe - Infectious Disease History Infectious Disease History: Reports: MRSA - Past Surgical History Head Surgeries/Procedures: Reports: None GI Surgical History: Reports: Other (See Below) Musculoskeletal Surgical History: Reports: Shoulder Surgery Social & Family History - Family History Family Medical History: Noncontributory - Caffeine Use Caffeine Use: Reports: None ED ROS GENERAL - Review of Systems Review Of Systems: See Below Constitutional: Denies: Fever, Chills HEENT: Reports: No Symptoms Respiratory: Reports: Shortness of Breath. Denies: Cough Cardiovascular: Reports: Chest Pain, Dyspnea on Exertion, Edema (legs mild) Endocrine: Reports: High Glucose GI/Abdominal: Reports: Abdominal Pain (radiates to LUQ). Denies: Diarrhea : Reports: No Symptoms Musculoskeletal: Reports: No Symptoms Skin: Denies: Cyanosis ED EXAM, GENERAL - Physical Exam Exam: See Below Exam Limited By: No Limitations General Appearance: Alert, WD/WN, No Apparent Distress Eye Exam: Bilateral Eye: EOMI, PERRL Ears: Hearing Grossly Normal Ear Exam: Bilateral Ear: Foreign Body (Cerumen impaction is impairing visualization of the TMs bilaterally) Nose: Normal Inspection Throat/Mouth: Normal Lips, Normal Gums, Normal Oropharynx, Normal Voice, No Airway Compromise Head: Atraumatic Neck: Normal Inspection, Supple, Non-Tender, Full Range of Motion. No: Lymphadenopathy (L), Lymphadenopathy (R) Respiratory/Chest: No Respiratory Distress, Lungs Clear, Normal Breath Sounds, No Accessory Muscle Use, Other (Patient reports tenderness to palpation along the chest on the left side) Cardiovascular: Normal Peripheral Pulses, Regular Rate, Rhythm, No JVD, No Murmur Peripheral Pulses: 2+: Carotid (L), Carotid (R), Dorsalis Pedis (L), Dorsalis Pedis (R) GI/Abdominal: Normal Bowel Sounds, Soft, Non-Tender, No Abnormal Bruit. No: Guarding, Rigid, Rebound Back Exam: Normal Inspection, Full Range of Motion Extremities: Normal Inspection, Normal Range of Motion, Pedal Edema (mild) Neurological: Alert, Oriented, CN II-XII Intact, Normal Cognition Psychiatric: Normal Mood, Flat Affect Skin Exam: Warm, Dry, Intact, Normal Color, No Rash. No: Diaphoretic Lymphatic: No Adenopathy EKG INTERPRETATION EKG Date: 07/26/18 Time: 00:20 Rhythm: NSR Rate (Beats/Min): 65 [place]: LAD-Left [place] Deviation P-Wave: Present QRS: Normal ST-T: Depressed QT: Prolonged Comparison: No Change EKG Interpretation Comments: Normal sinus rhythm Left axis deviation Nonspecific intraventricular conduction delay Abnormal ECG Course - Vital Signs Last Recorded V/S: Last Vital Signs Temp 97.6 F 07/25/18 23:50 Pulse 69 07/25/18 23:50 Resp 16 07/25/18 23:50 BP 115/62 07/25/18 23:50 Pulse Ox 97 07/25/18 23:50 - Orders/Labs/Meds Orders: Active Orders 24 hr Category Date Time Status EKG Documentation Completion [RC] ASDIRECTED Care 07/26/18 00:12 Active CXR [Chest 2V] [CR] Stat Exams 07/26/18 00:45 Ordered EKG 12 Lead [EK] Routine Ther 07/26/18 00:11 Ordered Labs: Laboratory Tests 07/26/18 07/26/18 07/26/18 Range/Units 00:26 00:26 00:27 WBC 6.68 (5.00-10.00) 10^3/uL RBC 3.72 L (4.50-6.00) 10^6/uL Hgb 10.7 L (13.0-17.0) g/dL Hct 31.0 L (40.0-52.0) % MCV 83.3 (82.0-92.0) fL MCH 28.8 (27.0-31.0) pg MCHC 34.5 (32.0-36.0) g/dL RDW 13.3 (11.5-14.5) % Plt Count 180 (150-400) 10^3/uL MPV 9.2 (7.4-10.4) fL Add Manual Diff Yes Neutrophils % (Manual) 53 (50-70) % Lymphocytes % (Manual) 27 (20-40) % Monocytes % (Manual) 10 H (2-8) % Eosinophils % (Manual) 10 H (1-3) % Absolute Neutrophils 3.5404 Lymphocytes # (Manual) 1.8036 Monocytes # (Manual) 0.6680 Eosinophils # (Manual) 0.6680 Sodium 143 (136-145) mmol/L Potassium 4.3 (3.3-5.3) mmol/L Chloride 107 (98-115) mmol/L Carbon Dioxide 23.6 (21.0-32.0) mmol/L Anion Gap 16.7 H (5-15) mmol/L BUN 15 (6-25) mg/dL Creatinine 0.71 (0.51-1.17) mg/dL Est Cr Clr Drug Dosing 100.35 mL/min Estimated GFR (MDRD) > 60 mL/min Glucose 75 (75 - 99) mg/dL Calcium 9.1 (8.7-10.3) mg/dL Troponin I 0.04 (0.00-0.070) ng/mL B-Natriuretic Peptide 87 (0-100) pg/mL Meds: Medications Discontinued Medications Generic Name Dose Route Start Last Admin Trade Name [place] PRN Reason Stop Dose Admin Aspirin Confirm 07/26/18 00:27 Aspirin Administered 07/26/18 00:28 Dose 81 mg .ROUTE .STK-MED ONE Aspirin 324 mg 07/26/18 01:10 Aspirin PO 07/26/18 01:11 ONETIME ONE Ketorolac Tromethamine 30 mg 07/26/18 01:10 Toradol IM 07/26/18 01:11 ONETIME ONE Morphine Sulfate 2 mg 07/26/18 00:12 Morphine IVPUSH 07/26/18 00:13 ONETIME ONE - Re-Assessments/Exams Free Text/Narrative Re-Assessment/Exam: 07/26/18 01:31 Patient was given 4 mg of morphine IM and 30 mg of IM Toradol Departure - Departure Time of Disposition: 01:58 Disposition: Refer to Observation Condition: Good Clinical Impression: Atypical chest pain Forms: ED Department Discharge - My Orders Last 24 Hours: My Active Orders 07/26/18 00:11 EKG 12 Lead [EK] Routine 07/26/18 00:12 EKG Documentation Completion [RC] ASDIRECTED 07/26/18 00:45 CXR [Chest 2V] [CR] Stat - Assessment/Plan Last 24 Hours: My Active Orders 07/26/18 00:11 EKG 12 Lead [EK] Routine 07/26/18 00:12 EKG Documentation Completion [RC] ASDIRECTED 07/26/18 00:45 CXR [Chest 2V] [CR] Stat Assessment:: Atypical chest pain Plan: 1. Patient is going to be admitted observational status on telemetry. 2. I have discussed this with [place] provider who will take over patient's care in the hospital. 3. He will likely need further cardiac workup. His cardiac lab work as well as EKG and chest x-ray are all normal will repeat his troponin early a.m. draw.
[2018-07-26] MEDS: Morphine 2 MG/ML Syringe IVPUSH ONE (00:50)
[2018-07-26 00:55] LABS: ANION GAP 16.7 mmol/L (5-15); CHLORIDE,CL 107 mmol/L (98-115); SODIUM,NA 143 mmol/L (136-145)
[2018-07-26] MEDS: Ketorolac 30 MG/ML SDV IM ONE (01:28)
[2018-07-26] MEDS: Aspirin 81 MG Tab.Chew ONE (01:39)
[2018-07-26] MEDS ORDERED: Acetaminophen 325 MG Tab PO PRN ×2 (01:59→09:09)
[2018-07-26] MEDS: GI Cocktail 45 ML BOTTLE PO ONE (01:59)
[2018-07-26] MEDS: Aluminum Hydroxide/Magnesium Hydroxide Susp 30 ML Cup PO PRN (04:30)
[2018-07-26 07:59] VITALS: BP 98/55
--- NOTE | 2018-07-26 08:36 | CR ---
[id number] RAD/RAD Chest PA And Lateral EXAM: RAD Chest PA And Lateral INDICATION: SOB; CHEST PAIN COMPARISON: July 23, 2018. DISCUSSION: Cardiomediastinal silhouette is normal in size and contour. Previously seen right infrahilar opacity is not visualized on today's examination. Lungs are clear. Bone bridge between the right 7th and 8th posterior ribs. IMPRESSION: No acute findings in the chest. Shawn Interiano MD 07/26/18 0835 Thank you for allowing us to participate in the care of your patient.
[2018-07-26] MEDS ORDERED: Nitroglycerin 0.4 MG Tab.SL SL PRN (09:09)
[2018-07-26] MEDS ORDERED: Non-Formulary Medication 1 Each (Albuterol 1 PUFF) INH PRN (09:09)
[2018-07-26] MEDS ORDERED: Carvedilol 6.25 MG Tab PO SCH (09:15)
[2018-07-26] MEDS ORDERED: Folic Acid 1 MG Tab PO SCH (09:15)
[2018-07-26] MEDS ORDERED: METFORMIN PO SCH (09:15)
[2018-07-26] MEDS ORDERED: Thiamine 100 MG Tab PO SCH (09:15)
[2018-07-26] MEDS ORDERED: Non-Formulary Medication 1 Each (Vitamin B Complex [Vitamin B Complex] 1 EACH) PO SCH (09:15)
[2018-07-26] MEDS ORDERED: Cyanocobalamin (Vitamin B12) 500 MCG Tab PO SCH (09:15)
[2018-07-26] MEDS ORDERED: Non-Formulary Medication 1 Each (Omeprazole [Omeprazole] 20 MG) PO SCH (09:15)
[2018-07-26] MEDS ORDERED: Lisinopril 5 MG Tab PO SCH (09:15)
[2018-07-26] MEDS ORDERED: Non-Formulary Medication 1 Each (Olanzapine [Olanzapine] 20 MG) PO SCH (09:30)
--- NOTE | 2018-07-26 12:15 | PCM.HP ---
H&P History of Present Illness - General Date of Service: 07/26/18 Admit Problem/Dx: Admitted with atypical chest pain. Discharge dx costochondritis. Source of Information: Patient, Other (ER report and notes) History Limitations: Reports: No Limitations - History of Present Illness Initial Comments - Free Text/Narative: Pt is a resident at [facility]. He was hospitalized 2 days ago for 48 hours with complaints of chest pain. Full cardiac work up was done and found to be negative. Last night he reported to the [place] staff that he was having chest pain. After 2nd Nitro, without any improvement in the chest pain, he was sent by ambulance to [facility] ER. In ER he described the pain as short intermittent sharp pain lasting 3-4 seconds and occurring about every 10 minutes. Pain radiates down to his epigastric area and to left upper quadrant. This is similar to the episode that he was experiencing 2 days ago when he was brought into the emergency room. He had an EKG that shows normal sinus rhythm with left axis deviation nonspecific intraventricular conduction delay heart rate was 65 bpm [address] is no ST elevation. This is same as his prior EKG 2 days ago. Troponin level is normal, BMP is less than 100. His white count is not elevated. 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 He quit drinking alcohol about 3-1/2 months ago. He was discharged back to the skilled nursing the following day. En route to ER he was given 1 nitroglycerin and had been given 2 nitroglycerin prior to ambulance transport at the skilled nursing. He reports really no difference of his symptoms or pain. He rates it a 9 out of 10 when it occurs. Throughout his entire stay he is been conversive and appears to be very quite comfortable. He's not had prior coronary catheterization. He is only on a baby aspirin daily no anticoagulation otherwise is seen in his medical chart upon review. On exam today he winces with sharp pain with light palpation over left lower ribs. He reports this is the same pain that he experiences that has brought him in to ER. He denies any concurrent shortness of breath, diaphoresis. He does report 3 soft stools this morning after apple juice. Pt is diabetic with poorly controlled blood sugars. He has been on Novolog 15 units tid with meals as well as tresiba u100 50 units BID in the skilled nursing. His insulin is being switched over to Tresiba U200 100 units daily. He did have his tresiba u100, 50 units last night but has not had any tresiba this morning in the hospital. He needs to have been off the U100 insulin for 24 hours prior to changing to the Tresiba u200. He is to start his first dose of the Tresiba u200 at 100 units tonight at [facility]. Onset of Symptoms: Reports: Unknown/Unsure Symptom Onset Date: 07/25/18 Symptom Onset Time: 22:00 Duration of Symptoms: Reports: Minutes: Location: Reports: Other (left lower rib, left upper abdominal quadrant and epigastric area) Quality: Reports: Stabbing Severity: Severe Improves with: Reports: Other (lying still) Worsens with: Reports: Movement Associated Symptoms: Reports: No Other Symptoms, Other (refers to this as chest pain but holds his hand over lower ribs and upper abdomen) Left Chest Pain Score (Numeric/FACES): 7 - Related Data Allergies/Adverse Reactions: Allergies Allergy/AdvReac Type Severity Reaction Status Date / Time mustard Allergy Vomiting Verified 07/26/18 00:11 Home Medications: Home Meds metFORMIN [Glucophage] 1 tab PO BID 08/25/15 [History] Aspirin 81 mg PO DAILY 03/14/17 [History] Folic Acid 1 mg PO DAILY 03/15/17 [History] Insulin Aspart [NovoLOG] 15 unit SQ TID 03/15/17 [History] Multivitamin [Daily Multiple Vitamin] 1 each PO DAILY 03/15/17 [History] Thiamine HCl 100 mg PO DAILY 03/15/17 [History] atorvaSTATin [Lipitor] 20 mg PO DAILY 03/15/17 [History] Acetaminophen [Pain & Fever] 650 mg PO Q6H PRN 07/31/17 [History] Nitroglycerin 0.4 mg SL ASDIRECTED PRN 07/31/17 [History] Vitamin B Complex 1 each PO DAILY 07/31/17 [History] Albuterol [Proventil HFA] 1 puff INH Q4H PRN 07/24/18 [History] Bacitracin [Bacitracin Oint] 1 applic TOP DAILY 07/24/18 [History] Carvedilol 6.25 mg PO BID 07/24/18 [History] Cyanocobalamin (Vitamin B-12) [Vitamin B-12] 250 mcg PO DAILY 07/24/18 [History] Finasteride 5 mg PO DAILY 07/24/18 [History] Gabapentin [Neurontin] 600 mg PO TID 07/24/18 [History] Lisinopril 10 mg PO DAILY 07/24/18 [History] Melatonin 5 mg PO BEDTIME 07/24/18 [History] OLANZapine 20 mg PO 0900 07/24/18 [History] Omeprazole 20 mg PO BID 07/24/18 [History] Insulin Degludec [Tresiba] 100 unit SQ BEDTIME 07/26/18 [History] Isosorbide Mononitrate [Imdur] 30 mg PO BEDTIME 07/26/18 [History] Past Medical History HEENT History: Reports: None Cardiovascular History: Reports: High Cholesterol, Hypertension, RI Respiratory History: Reports: SOB Gastrointestinal History: Reports: Cirrhosis, Gastritis, GERD Genitourinary History: Reports: BPH, Renal Disease Musculoskeletal History: Reports: Fracture, Other (See Below) Other Musculoskeletal History: muscle weakness Neurological History: Reports: CVA, TIA, Other (See Below) Other Neuro History: TBI. personality disorder Psychiatric History: Reports: Addiction, Anxiety, Depression Other Psychiatric History: insomnia Endocrine/Metabolic History: Reports: Diabetes, Type II, Obesity/BMI 30+ Hematologic History: Reports: B12 Deficiency Immunologic History: Reports: None Oncologic (Cancer) History: Reports: None Dermatologic History: Reports: Decubitus Ulcer, Other (See Below) Other Dermatologic History: 3rd r. toe - Infectious Disease History Infectious Disease History: Reports: MRSA - Past Surgical History Head Surgeries/Procedures: Reports: None GI Surgical History: Reports: Other (See Below) Musculoskeletal Surgical History: Reports: Shoulder Surgery Social & Family History - Family History Family Medical History: Noncontributory - Caffeine Use Caffeine Use: Reports: None - Alcohol Use Days Per Week of Alcohol Use: 5 Number of Drinks Per Day: 4 Total Drinks Per Week: 20 Date of Last Drink: 04/25/18 - Recreational Drug Use Recreational Drug Use: No H&P Review of Systems - Review of Systems: Review Of Systems: See Below General: Reports: No Symptoms HEENT: Reports: No Symptoms Pulmonary: Reports: No Symptoms Cardiovascular: Reports: Chest Pain. Denies: Edema Gastrointestinal: Reports: Other (three stools this morning) Genitourinary: Reports: No Symptoms Musculoskeletal: Reports: Other (left lower chest wall pain) Psychiatric: Reports: Other (history or alcohol abuse. On olanzapine) Neurological: Reports: No Symptoms Hematologic/Lymphatic: Reports: No Symptoms, Anemia (history of anemia) Immunologic: Reports: No Symptoms Exam - Exam Exam: See Below - Vital Signs Vital Signs: Last Vital Signs Temp 97.9 F 07/26/18 06:47 Pulse 64 07/26/18 06:47 Resp 20 07/26/18 06:47 BP 110/54 L 07/26/18 06:47 Pulse Ox 98 07/26/18 06:47 Weight: 225 lb - Exam Quality Assessment: No: Supplemental Oxygen General: Alert, Oriented, Cooperative Neck: Supple Lungs: Wheezing (wheezing bilateral bases) Cardiovascular: Regular Rate, Regular Rhythm, Normal S1, Normal S2 GI/Abdominal Exam: Normal Bowel Sounds, Soft, Non-Tender, No Distention (Male) Exam: Deferred Rectal (Males) Exam: Deferred Extremities: No Pedal Edema Skin: Warm, Dry, Intact Neuro Extensive - Mental Status: Alert, Oriented x3, Normal Mood/Affect Psychiatric: Alert, Normal Affect, Normal Mood - Patient Data Lab Results Last 24 hrs: Laboratory Results - last 24 hr 07/26/18 07/26/18 07/26/18 Range/Units 00:26 00:26 00:27 WBC 6.68 (5.00-10.00) 10^3/uL RBC 3.72 L (4.50-6.00) 10^6/uL Hgb 10.7 L (13.0-17.0) g/dL Hct 31.0 L (40.0-52.0) % MCV 83.3 (82.0-92.0) fL MCH 28.8 (27.0-31.0) pg MCHC 34.5 (32.0-36.0) g/dL RDW 13.3 (11.5-14.5) % Plt Count 180 (150-400) 10^3/uL MPV 9.2 (7.4-10.4) fL Add Manual Diff Yes Neutrophils % (Manual) 53 (50-70) % Lymphocytes % (Manual) 27 (20-40) % Monocytes % (Manual) 10 H (2-8) % Eosinophils % (Manual) 10 H (1-3) % Absolute Neutrophils 3.5404 Lymphocytes # (Manual) 1.8036 Monocytes # (Manual) 0.6680 Eosinophils # (Manual) 0.6680 Sodium 143 (136-145) mmol/L Potassium 4.3 (3.3-5.3) mmol/L Chloride 107 (98-115) mmol/L Carbon Dioxide 23.6 (21.0-32.0) mmol/L Anion Gap 16.7 H (5-15) mmol/L BUN 15 (6-25) mg/dL Creatinine 0.71 (0.51-1.17) mg/dL Est Cr Clr Drug Dosing 100.35 mL/min Estimated GFR (MDRD) > 60 mL/min Glucose 75 (75 - 99) mg/dL POC Glucose (74-106) mg/dl Calcium 9.1 (8.7-10.3) mg/dL Troponin I 0.04 (0.00-0.070) ng/mL B-Natriuretic Peptide 87 (0-100) pg/mL 07/26/18 07/26/18 07/26/18 Range/Units 03:08 04:25 07:25 WBC (5.00-10.00) 10^3/uL RBC (4.50-6.00) 10^6/uL Hgb (13.0-17.0) g/dL Hct (40.0-52.0) % MCV (82.0-92.0) fL MCH (27.0-31.0) pg MCHC (32.0-36.0) g/dL RDW (11.5-14.5) % Plt Count (150-400) 10^3/uL MPV (7.4-10.4) fL Add Manual Diff Neutrophils % (Manual) (50-70) % Lymphocytes % (Manual) (20-40) % Monocytes % (Manual) (2-8) % Eosinophils % (Manual) (1-3) % Absolute Neutrophils Lymphocytes # (Manual) Monocytes # (Manual) Eosinophils # (Manual) Sodium (136-145) mmol/L Potassium (3.3-5.3) mmol/L Chloride (98-115) mmol/L Carbon Dioxide (21.0-32.0) mmol/L Anion Gap (5-15) mmol/L BUN (6-25) mg/dL Creatinine (0.51-1.17) mg/dL Est Cr Clr Drug Dosing mL/min Estimated GFR (MDRD) mL/min Glucose (75 - 99) mg/dL POC Glucose 81 169 H (74-106) mg/dl Calcium (8.7-10.3) mg/dL Troponin I 0.06 (0.00-0.070) ng/mL B-Natriuretic Peptide (0-100) pg/mL Result Diagrams: 07/26/18 00:26 07/26/18 00:26 - Problem List (1) Atypical chest pain SNOMED Code(s): 595270088 ICD Code: R07.89 - OTHER CHEST PAIN Status: Acute Current Visit: Yes (2) Costochondral chest pain SNOMED Code(s): 262326948, 266063934 ICD Code: R07.1 - CHEST PAIN ON BREATHING Status: Acute Current Visit: Yes Problem List Initiated/Reviewed/Updated: Yes Orders Last 24hrs: Active Orders 24 hr Category Date Time Status Patient Status [ADT] Routine ADT 07/26/18 01:59 Ordered Cardiac Monitoring [RC] 0300,0700,1100,1500,1900,2300 Care 07/26/18 02:10 Active EKG Documentation Completion [RC] ASDIRECTED Care 07/26/18 00:12 Active Intake and Output [RC] 1400,2200,0600 Care 07/26/18 02:01 Active Oxygen Therapy [RC] PRN Care 07/26/18 02:01 Active Pulse Oximetry [RC] PRN Care 07/26/18 02:01 Active Ready for Discharge [RC] PER UNIT ROUTINE Care 07/26/18 11:57 Ordered Up With Assistance [RC] ASDIRECTED Care 07/26/18 01:59 Active Vital Signs [RC] 0300,0700,1100,1500,1900,2300 Care 07/26/18 01:59 Active Heart Healthy Diet [DIET] Diet 07/26/18 Breakfast Active Acetaminophen [Tylenol] Med 07/26/18 01:59 Active 650 mg PO Q4H PRN Acetaminophen [Tylenol] Med 07/26/18 09:09 Active 650 mg PO Q6H PRN Albuterol Med 07/26/18 09:09 Pending 1 puff INH Q4H PRN Alum Hydroxide/Mag Hydroxide [Mag-Al Susp] Med 07/26/18 04:06 Active 30 ml PO Q4H PRN Aspirin [Halfprin] Med 07/26/18 09:30 Active 81 mg PO DAILY Carvedilol [Coreg] Med 07/26/18 09:15 Pending 6.25 mg PO BID Cyanocobalamin (Vitamin B12) [Vitamin B12] Med 07/26/18 09:15 Pending 250 mcg PO DAILY Finasteride [Proscar] Med 07/26/18 20:00 Pending 5 mg PO DAILY Folic Acid Med 07/26/18 09:15 Pending 1 mg PO DAILY Gabapentin [Neurontin] Med 07/26/18 14:00 Pending 600 mg PO TID Insulin Aspart [NovoLOG] Med 07/26/18 14:00 Pending 15 unit SQ TID Isosorbide Mononitrate [Imdur] Med 07/26/18 21:00 Pending 30 mg PO BEDTIME Lisinopril [Prinivil] Med 07/26/18 09:15 Pending 10 mg PO DAILY Melatonin [Melatonin] Med 07/26/18 21:00 Pending 5 mg PO BEDTIME Nitroglycerin [Nitrostat] Med 07/26/18 09:09 Pending 0.4 mg SL ASDIRECTED PRN OLANZapine [OLANZapine] Med 07/26/18 09:30 Pending 20 mg PO 0900 Omeprazole [Omeprazole] Med 07/26/18 09:15 Pending 20 mg PO BID Thiamine [Vitamin B-1] Med 07/26/18 09:15 Pending 100 mg PO DAILY Vitamin B Complex [Vitamin B Complex] Med 07/26/18 09:15 Pending 1 each PO DAILY atorvaSTATin [Lipitor] Med 07/26/18 20:00 Pending 20 mg PO DAILY metFORMIN [Glucophage] Med 07/26/18 09:15 Pending 1 tab PO BID EKG 12 Lead [EK] Routine Ther 07/26/18 00:11 Ordered Medication Orders Acetaminophen (Tylenol) 650 mg PO Q4H PRN PRN Reason: analgesia/fever Acetaminophen (Tylenol) 650 mg PO Q6H PRN PRN Reason: Pain Al Hydroxide/Mg Hydroxide (Mag-Al Susp) 30 ml PO Q4H PRN PRN Reason: Indigestion Last Admin: 07/26/18 04:30 Dose: 30 ml Aspirin (Halfprin) 81 mg PO DAILY [facility] Carvedilol (Coreg) 6.25 mg PO BID [facility] Cyanocobalamin (Vitamin B12) 250 mcg PO DAILY [facility] Finasteride (Proscar) 5 mg PO DAILY [facility] Folic Acid (Folic Acid) 1 mg PO DAILY [facility] Gabapentin (Neurontin) 600 mg PO TID [facility] Isosorbide Mononitrate (Imdur) 30 mg PO BEDTIME [facility] Lisinopril (Prinivil) 10 mg PO DAILY [facility] Nitroglycerin (Nitrostat) 0.4 mg SL ASDIRECTED PRN PRN Reason: Chest Pain Non-Formulary Medication (Albuterol) 1 puff INH Q4H PRN PRN Reason: Shortness of Breath Non-Formulary Medication (Atorvastatin [Lipitor]) 20 mg PO DAILY [facility] Non-Formulary Medication (Insulin Aspart [Novolog]) 15 unit SQ TID [facility] Non-Formulary Medication (Melatonin [Melatonin]) 5 mg PO BEDTIME [facility] Non-Formulary Medication (Metformin [Glucophage]) 1 tab PO BID [facility] Non-Formulary Medication (Olanzapine [Olanzapine]) 20 mg PO 0900 [facility] Non-Formulary Medication (Omeprazole [Omeprazole]) 20 mg PO BID [facility] Non-Formulary Medication (Vitamin B Complex [Vitamin B Complex]) 1 each PO DAILY [facility] Thiamine HCl (Vitamin B-1) 100 mg PO DAILY [facility] Assessment/Plan Comment:: atypical chest pain: cardiac work up negative. Discharge diagnosis costochondritis. Pt will be discharged back to [place] on Ibuprofen 600 mg tid x 2 weeks. take Ibuprofen with food. Diabetes: Pt did not have his tresiba u100 this morning, thus he can begin the tresiba u200 100 units tonight at the skilled nursing. I have discussed this with nurse Barbara at the skilled nursing extensively--to throw out any U100 or levemir or lantus insulin and only have his Tresiba U200 insulin in his med box with this change attendant. He is to continue novolog 15 units with meals. Nurses to record blood sugars per his routine and report back to me after 1 week or sooner prn. He is to be seen on next [place] rounds.
--- NOTE | 2018-07-26 12:52 | PCM.DCSUM1 ---
Discharge Summary - Hospital Course Free Text/Narrative:: Pt is a resident at [facility]. He was hospitalized 2 days ago for 48 hours with complaints of chest pain. Full cardiac work up was done and found to be negative. Last night he reported to the [place] staff that he was having chest pain. After 2nd Nitro, without any improvement in the chest pain, he was sent by ambulance to [facility] ER. In ER he described the pain as short intermittent sharp pain lasting 3-4 seconds and occurring about every 10 minutes. Pain radiates down to his epigastric area and to left upper quadrant. This is similar to the episode that he was experiencing 2 days ago when he was brought into the emergency room. He had an EKG that shows normal sinus rhythm with left axis deviation nonspecific intraventricular conduction delay heart rate was 65 bpm [address] is [address] elevation. This is same as his prior EKG 2 days ago. Troponin level is normal, BMP is less than 100. His white count is not elevated. 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 He quit drinking alcohol about 3-1/2 months ago. He was discharged back to the assisted the following day. En route to ER he was given 1 nitroglycerin and had been given 2 nitroglycerin prior to ambulance transport at the assisted. He reports really no difference of his symptoms or pain. He rates it a 9 out of 10 when it occurs. Throughout his entire stay he is been conversive and appears to be very quite comfortable. He's not had prior coronary catheterization. He is only on a baby aspirin daily no anticoagulation otherwise is seen in his medical chart upon review. He was admitted for observation. Troponin continued negative. Telemetry unremarkable with NSR On exam today he winces with sharp pain with light palpation over left lower ribs. He reports this is the same pain that he experiences that has brought him in to ER. He denies any concurrent shortness of breath, diaphoresis. He does report 3 soft stools this morning after apple juice. Admission DX: Atypical chest pain: cardiac work up negative. Discharge diagnosis costochondritis. Pt will be discharged back to [place] on Ibuprofen 600 mg tid x 2 weeks. take Ibuprofen with food. Diabetes: Pt is diabetic with poorly controlled blood sugars. He has been on Novolog 15 units tid with meals as well as tresiba u100 50 units BID in the assisted. His insulin is being switched over to Tresiba U200 100 units daily. He did have his tresiba u100, 50 units last night but has not had any tresiba this morning in the hospital. He needs to have been off the U100 insulin for 24 hours prior to changing to the Tresiba u200. He is to start his first dose of the Tresiba u200 at 100 units tonight at [facility]. I have discussed this with nurse Barbara at the assisted extensively--she is to throw out any tresiba U100 or levemir insulin and only have his Tresiba U200 insulin in his med box with this foreign exchange dealer. He is to continue novolog 15 units with meals. Nurses to record blood sugars per his routine and report back to me after 1 week or sooner prn. He is to be seen on next [facility] rounds. Diagnosis: Stroke: No - Discharge Data Discharge Date: 07/26/18 Discharge Disposition: DC/Tfer to [facility] Condition: Good - Discharge Diagnosis/Problem(s) (1) Atypical chest pain SNOMED Code(s): 148173074 ICD Code: R07.89 - OTHER CHEST PAIN Status: Acute Current Visit: Yes (2) Costochondral chest pain SNOMED Code(s): 464214197, 495852883 ICD Code: R07.1 - CHEST PAIN ON BREATHING Status: Acute Current Visit: Yes - Patient Instructions Diet: No Alcoholic Beverages, Diabetic Diet Activity: As Tolerated Driving: Do Not Drive Showering/Bathing: May Shower - Discharge Plan *PRESCRIPTION DRUG MONITORING PROGRAM REVIEWED*: Not Applicable *COPY OF PRESCRIPTION DRUG MONITORING REPORT IN PATIENT ANDREI: Not Applicable Home Medications: Home Meds metFORMIN [Glucophage] 1 tab PO BID 08/25/15 [History] Aspirin 81 mg PO DAILY 03/14/17 [History] Folic Acid 1 mg PO DAILY 03/15/17 [History] Insulin Aspart [NovoLOG] 15 unit SQ TID 03/15/17 [History] Multivitamin [Daily Multiple Vitamin] 1 each PO DAILY 03/15/17 [History] Thiamine HCl 100 mg PO DAILY 03/15/17 [History] atorvaSTATin [Lipitor] 20 mg PO DAILY 03/15/17 [History] Acetaminophen [Pain & Fever] 650 mg PO Q6H PRN 07/31/17 [History] Nitroglycerin 0.4 mg SL ASDIRECTED PRN 07/31/17 [History] Vitamin B Complex 1 each PO DAILY 07/31/17 [History] Albuterol [Proventil HFA] 1 puff INH Q4H PRN 07/24/18 [History] Bacitracin [Bacitracin Oint] 1 applic TOP DAILY 07/24/18 [History] Carvedilol 6.25 mg PO BID 07/24/18 [History] Cyanocobalamin (Vitamin B-12) [Vitamin B-12] 250 mcg PO DAILY 07/24/18 [History] Finasteride 5 mg PO DAILY 07/24/18 [History] Gabapentin [Neurontin] 600 mg PO TID 07/24/18 [History] Lisinopril 10 mg PO DAILY 07/24/18 [History] Melatonin 5 mg PO BEDTIME 07/24/18 [History] OLANZapine 20 mg PO 0900 07/24/18 [History] Omeprazole 20 mg PO BID 07/24/18 [History] Acetaminophen [Tylenol] 650 mg PO Q4H PRN tablet 07/26/18 [Rx] Alum Hydroxide/Mag Hydroxide [Mag-Al] 30 ml PO Q4H PRN cup 07/26/18 [Rx] Isosorbide Mononitrate [Imdur] 30 mg PO BEDTIME 07/26/18 [History] Forms: ED Department Discharge Referrals: PCP,Unobtain [Primary Care Provider] - (follow up on [facility]) - Discharge Summary/Plan Comment DC Time >30 min.: Yes - General Info Date of Service: 07/26/18 Admission Dx/Problem (Free Text: Admitted with atypical chest pain. Discharge dx costochondritis. Functional Status: Reports: Other (pain of left chest wall with palpation or any movement. resolved with no movement.) - Review of Systems General: Denies: Fever HEENT: Reports: No Symptoms Pulmonary: Reports: No Symptoms Cardiovascular: Reports: Chest Pain Gastrointestinal: Reports: Other (3 stools this morning after taking apple juice ) Genitourinary: Reports: No Symptoms Musculoskeletal: Reports: Other (chest wall pain) Skin: Reports: No Symptoms Neurological: Reports: No Symptoms Psychiatric: Reports: No Symptoms, Other (history of alcholol abuse, on olanzapine) - Patient Data Vitals - Most Recent: Last Vital Signs Temp 97.9 F 07/26/18 06:47 Pulse 64 07/26/18 06:47 Resp 20 07/26/18 06:47 BP 110/54 L 07/26/18 06:47 Pulse Ox 98 07/26/18 06:47 Weight - Most Recent: 225 lb I&O - Last 24 hours: Intake & Output 07/25/18 07/26/18 07/26/18 22:59 06:59 14:59 Intake Total 600 Balance 600 Lab Results - Last 24 hrs: Laboratory Results - last 24 hr 07/26/18 07/26/18 07/26/18 Range/Units 00:26 00:26 00:27 WBC 6.68 (5.00-10.00) 10^3/uL RBC 3.72 L (4.50-6.00) 10^6/uL Hgb 10.7 L (13.0-17.0) g/dL Hct 31.0 L (40.0-52.0) % MCV 83.3 (82.0-92.0) fL MCH 28.8 (27.0-31.0) pg MCHC 34.5 (32.0-36.0) g/dL RDW 13.3 (11.5-14.5) % Plt Count 180 (150-400) 10^3/uL MPV 9.2 (7.4-10.4) fL Add Manual Diff Yes Neutrophils % (Manual) 53 (50-70) % Lymphocytes % (Manual) 27 (20-40) % Monocytes % (Manual) 10 H (2-8) % Eosinophils % (Manual) 10 H (1-3) % Absolute Neutrophils 3.5404 Lymphocytes # (Manual) 1.8036 Monocytes # (Manual) 0.6680 Eosinophils # (Manual) 0.6680 Sodium 143 (136-145) mmol/L Potassium 4.3 (3.3-5.3) mmol/L Chloride 107 (98-115) mmol/L Carbon Dioxide 23.6 (21.0-32.0) mmol/L Anion Gap 16.7 H (5-15) mmol/L BUN 15 (6-25) mg/dL Creatinine 0.71 (0.51-1.17) mg/dL Est Cr Clr Drug Dosing 100.35 mL/min Estimated GFR (MDRD) > 60 mL/min Glucose 75 (75 - 99) mg/dL POC Glucose (74-106) mg/dl Calcium 9.1 (8.7-10.3) mg/dL Troponin I 0.04 (0.00-0.070) ng/mL B-Natriuretic Peptide 87 (0-100) pg/mL 07/26/18 07/26/18 07/26/18 Range/Units 03:08 04:25 07:25 WBC (5.00-10.00) 10^3/uL RBC (4.50-6.00) 10^6/uL Hgb (13.0-17.0) g/dL Hct (40.0-52.0) % MCV (82.0-92.0) fL MCH (27.0-31.0) pg MCHC (32.0-36.0) g/dL RDW (11.5-14.5) % Plt Count (150-400) 10^3/uL MPV (7.4-10.4) fL Add Manual Diff Neutrophils % (Manual) (50-70) % Lymphocytes % (Manual) (20-40) % Monocytes % (Manual) (2-8) % Eosinophils % (Manual) (1-3) % Absolute Neutrophils Lymphocytes # (Manual) Monocytes # (Manual) Eosinophils # (Manual) Sodium (136-145) mmol/L Potassium (3.3-5.3) mmol/L Chloride (98-115) mmol/L Carbon Dioxide (21.0-32.0) mmol/L Anion Gap (5-15) mmol/L BUN (6-25) mg/dL Creatinine (0.51-1.17) mg/dL Est Cr Clr Drug Dosing mL/min Estimated GFR (MDRD) mL/min Glucose (75 - 99) mg/dL POC Glucose 81 169 H (74-106) mg/dl Calcium (8.7-10.3) mg/dL Troponin I 0.06 (0.00-0.070) ng/mL B-Natriuretic Peptide (0-100) pg/mL Med Orders - Current: Current Medications Acetaminophen (Tylenol) 650 mg PO Q4H PRN PRN Reason: analgesia/fever Acetaminophen (Tylenol) 650 mg PO Q6H PRN PRN Reason: Pain Al Hydroxide/Mg Hydroxide (Mag-Al Susp) 30 ml PO Q4H PRN PRN Reason: Indigestion Last Admin: 07/26/18 04:30 Dose: 30 ml Aspirin (Halfprin) 81 mg PO DAILY [facility] Carvedilol (Coreg) 6.25 mg PO BID [facility] Cyanocobalamin (Vitamin B12) 250 mcg PO DAILY [facility] Finasteride (Proscar) 5 mg PO DAILY [facility] Folic Acid (Folic Acid) 1 mg PO DAILY [facility] Gabapentin (Neurontin) 600 mg PO TID [facility] Isosorbide Mononitrate (Imdur) 30 mg PO BEDTIME [facility] Lisinopril (Prinivil) 10 mg PO DAILY [facility] Nitroglycerin (Nitrostat) 0.4 mg SL ASDIRECTED PRN PRN Reason: Chest Pain Non-Formulary Medication (Albuterol) 1 puff INH Q4H PRN PRN Reason: Shortness of Breath Non-Formulary Medication (Atorvastatin [Lipitor]) 20 mg PO DAILY [facility] Non-Formulary Medication (Insulin Aspart [Novolog]) 15 unit SQ TID [facility] Non-Formulary Medication (Melatonin [Melatonin]) 5 mg PO BEDTIME [facility] Non-Formulary Medication (Metformin [Glucophage]) 1 tab PO BID [facility] Non-Formulary Medication (Olanzapine [Olanzapine]) 20 mg PO 0900 [place] Non-Formulary Medication (Omeprazole [Omeprazole]) 20 mg PO BID [facility] Non-Formulary Medication (Vitamin B Complex [Vitamin B Complex]) 1 each PO DAILY [facility] Thiamine HCl (Vitamin B-1) 100 mg PO DAILY [facility] Discontinued Medications Al Hydroxide/Mg Hydroxide (Gi Cocktail) 45 ml PO ONETIME ONE Stop: 07/26/18 01:55 Last Admin: 07/26/18 01:59 Dose: 45 ml Aspirin (Aspirin) Confirm Administered Dose 81 mg .ROUTE .STK-MED ONE Stop: 07/26/18 00:28 Last Admin: 07/26/18 01:39 Dose: Not Given Aspirin (Aspirin) 324 mg PO ONETIME ONE Stop: 07/26/18 01:11 Last Admin: 07/26/18 00:30 Dose: 324 mg Ketorolac Tromethamine (Toradol) 30 mg IM ONETIME ONE Stop: 07/26/18 01:11 Last Admin: 07/26/18 01:28 Dose: 30 mg Morphine Sulfate (Morphine) 2 mg IVPUSH ONETIME ONE Stop: 07/26/18 00:13 Last Admin: 07/26/18 00:50 Dose: 2 mg - Exam Quality Assessment: Denies: Supplemental Oxygen General: Reports: Alert, Oriented Neck: Reports: Supple Lungs: Reports: Wheezing (wheezing at bilateral bases) Cardiovascular: Reports: Regular Rate, Regular Rhythm, No Murmurs GI/Abdominal Exam: Normal Bowel Sounds, Soft, Non-Tender (Male) Exam: Deferred Rectal (Males) Exam: Deferred Extremities: No Pedal Edema Skin: Reports: Warm, Dry, Intact Neurological: Reports: No New Focal Deficit Psy/Mental Status: Reports: Alert, Normal Affect, Normal Mood
[2018-07-26] MEDS: Aspirin 81 MG Tab.EC PO SCH (13:21)
[2018-07-26] MEDS ORDERED: Gabapentin 300 MG Cap PO SCH (14:00)
[2018-07-26] MEDS ORDERED: INSULIN ASPART 15 UNIT SQ SCH (14:00)
[2018-07-26] MEDS ORDERED: Finasteride 5 MG Tab PO SCH (20:00)
[2018-07-26] MEDS ORDERED: Non-Formulary Medication 1 Each (Atorvastatin [Lipitor] 20 MG) PO SCH (20:00)
[2018-07-26] MEDS ORDERED: Non-Formulary Medication 1 Each (Melatonin [Melatonin] 5 MG) PO SCH (21:00)
[2018-07-26] MEDS ORDERED: Isosorbide Mononitrate 30 MG Tab.ER PO SCH (21:00)
== END 2018-07-26 13:45 ==
LOC: KA.ED 23:50 → KA.MS 07-26 01:59
PROVIDERS: ADMIT Physician Assistant; ATTEND Nurse Practitioner Family
DX: M94.0 Chondrocostal junction syndrome [Tietze] (principal); E11.9 Type 2 diabetes mellitus without complications; E66.9 Obesity, unspecified; Z68.34 Body mass index [BMI] 34.0-34.9, adult; F41.9 Anxiety disorder, unspecified; F32.9 Major depressive disorder, single episode, unspecified; I10 Essential (primary) hypertension; E78.00 Pure hypercholesterolemia, unspecified; Z86.73 Personal history of transient ischemic attack (TIA), and cerebral infarction without residual deficits; Z79.4 Long term (current) use of insulin; Z79.899 Other long term (current) drug therapy
CPT/HCPCS: 36415; 71046; 80048; 82962; 83880; 84484; 85025; 93005; 96372; 99284; 99285-25; A9270-GY; J1885; J2270

== ENCOUNTER 2018-09-04 23:17 | Emergency (ER) | payer MEDICARE, MEDICAID ==
--- NOTE | 2018-09-05 00:06 | EDM.PDOC ---
ED HPI GENERAL MEDICAL PROBLEM - General Stated Complaint: Fever and abdominal pain Time Seen by Provider: 09/04/18 23:57 Source of Information: Reports: Patient, Fdc Records, Provider History Limitations: Reports: Other (dementia) - History of Present Illness INITIAL COMMENTS - FREE TEXT/NARRATIVE: Patient presents from [facility] with fever of 104 and abdominal pain. He has been at the CT for about 4 months due to multiple chronic alcohol-related disease processes including: chronic pancreatitis, dementia, GERD, ascites. He was treated for sepsis approx 8 months ago and has had gallbladder and appendix removed. No history of liver or kidney disease from a review of his lengthy clinic chart via his PCP, Dr. Spencer over the phone. He has been abusing alcohol for years and is only recently unable to drink while locked in [facility] dementia unit. He has been treated at the [facility] multiple times and has been in various ER's approximately weekly prior to his CT placement. - Related Data Allergies Allergy/AdvReac Type Severity Reaction Status Date / Time mustard Allergy Vomiting Verified 07/26/18 00:11 Home Meds: Home Meds metFORMIN [Glucophage] 1 tab PO BID 08/25/15 [History] Aspirin 81 mg PO DAILY 03/14/17 [History] Folic Acid 1 mg PO DAILY 03/15/17 [History] Insulin Aspart [NovoLOG] 15 unit SQ TID 03/15/17 [History] Multivitamin [Daily Multiple Vitamin] 1 each PO DAILY 03/15/17 [History] Thiamine HCl 100 mg PO DAILY 03/15/17 [History] atorvaSTATin [Lipitor] 20 mg PO DAILY 03/15/17 [History] Acetaminophen [Pain & Fever] 650 mg PO Q6H PRN 07/31/17 [History] Nitroglycerin 0.4 mg SL ASDIRECTED PRN 07/31/17 [History] Vitamin B Complex 1 each PO DAILY 07/31/17 [History] Albuterol [Proventil HFA] 1 puff INH Q4H PRN 07/24/18 [History] Bacitracin [Bacitracin Oint] 1 applic TOP DAILY 07/24/18 [History] Carvedilol 6.25 mg PO BID 07/24/18 [History] Cyanocobalamin (Vitamin B-12) [Vitamin B-12] 250 mcg PO DAILY 07/24/18 [History] Finasteride 5 mg PO DAILY 07/24/18 [History] Gabapentin [Neurontin] 600 mg PO TID 07/24/18 [History] Lisinopril 10 mg PO DAILY 07/24/18 [History] Melatonin 5 mg PO BEDTIME 07/24/18 [History] OLANZapine 20 mg PO 0900 07/24/18 [History] Omeprazole 20 mg PO BID 07/24/18 [History] Acetaminophen [Tylenol] 650 mg PO Q4H PRN tablet 07/26/18 [Rx] Alum Hydroxide/Mag Hydroxide [Mag-Al] 30 ml PO Q4H PRN cup 07/26/18 [Rx] Isosorbide Mononitrate [Imdur] 30 mg PO BEDTIME 07/26/18 [History] Past Medical History HEENT History: Reports: None Cardiovascular History: Reports: High Cholesterol, Hypertension, MS Respiratory History: Reports: SOB Gastrointestinal History: Reports: Cirrhosis, Gastritis, GERD Genitourinary History: Reports: BPH, Renal Disease Musculoskeletal History: Reports: Fracture, Other (See Below) Other Musculoskeletal History: muscle weakness Neurological History: Reports: CVA, TIA, Other (See Below) Other Neuro History: TBI. personality disorder Psychiatric History: Reports: Addiction, Anxiety, Depression Other Psychiatric History: insomnia Endocrine/Metabolic History: Reports: Diabetes, Type II, Obesity/BMI 30+ Hematologic History: Reports: B12 Deficiency Immunologic History: Reports: None Oncologic (Cancer) History: Reports: None Dermatologic History: Reports: Decubitus Ulcer, Other (See Below) Other Dermatologic History: 3rd r. toe - Infectious Disease History Infectious Disease History: Reports: MRSA - Past Surgical History Head Surgeries/Procedures: Reports: None GI Surgical History: Reports: Other (See Below) Musculoskeletal Surgical History: Reports: Shoulder Surgery Social & Family History - Family History Family Medical History: Noncontributory (Reviewed and noncontributory) - Caffeine Use Caffeine Use: Reports: None ED ROS GENERAL - Review of Systems Review Of Systems: See Below (thorough ROS unobtainable due to dementia/ confusion) Constitutional: Reports: Fever HEENT: Denies: Throat Pain Respiratory: Denies: Shortness of Breath, Cough Cardiovascular: Denies: Chest Pain GI/Abdominal: Reports: Abdominal Pain. Denies: Constipation, Diarrhea, Vomiting ED EXAM, GI/ABD - Physical Exam Exam: See Below Exam Limited By: Altered Mental Status (dementia/confusion) General Appearance: WD/WN, No Apparent Distress, Lethargic (mildly; at least sleepy but easily arousable) Eyes: Bilateral: Normal Appearance, EOMI Ears: Normal External Exam, Hearing Grossly Normal Nose: Normal Inspection, No Blood Throat/Mouth: Normal Inspection, Normal Lips, Normal Voice, No Airway Compromise Head: Atraumatic, Normocephalic Neck: Normal Inspection Respiratory/Chest: No Respiratory Distress, Normal Breath Sounds (on right but decreased on left), No Accessory Muscle Use, Decreased Breath Sounds (on left base). No: Crackles, Rhonchi, Wheezing, Stridor Cardiovascular: Tachycardia (110) GI/Abdominal Exam: Normal Bowel Sounds, Soft, No Organomegaly, No Distention, Tender (moderate at epigastric). No: Distended, Guarding, Rigid Extremities: Normal Inspection, Normal Range of Motion, Non-Tender, No Pedal Edema, Normal Capillary Refill Neurological: Alert (but sleepy; eyes closed most of time but responds to questions although answers are usually confused or unintelligible), No Motor/ Sensory Deficits Skin Exam: Warm, Dry, Intact, Normal Color, No Rash Course - Vital Signs Last Recorded V/S: Last Vital Signs Temp 104 F H 09/04/18 23:20 Pulse 105 H 09/04/18 23:20 Resp 16 09/04/18 23:20 BP 125/69 09/04/18 23:20 Pulse Ox 95 09/04/18 23:20 - Orders/Labs/Meds Orders: Active Orders 24 hr Category Date Time Status Abdomen Pelvis w Cont [CT] Stat Exams 09/05/18 00:10 Ordered Chest 2V [CR] Stat Exams 09/05/18 00:05 Ordered Labs: Laboratory Tests 09/05/18 09/05/18 09/05/18 Range/Units 00:15 00:15 00:15 WBC 14.20 H (5.00-10.00) 10^3/uL RBC 3.98 L (4.50-6.00) 10^6/uL Hgb 11.7 L (13.0-17.0) g/dL Hct 32.6 L (40.0-52.0) % MCV 81.9 L (82.0-92.0) fL MCH 29.4 (27.0-31.0) pg MCHC 35.9 (32.0-36.0) g/dL RDW 13.9 (11.5-14.5) % Plt Count 135 L (150-400) 10^3/uL MPV 10.0 (7.4-10.4) fL Immature Gran % (Auto) 0.3 (0.0-5.0) % Neut % (Auto) 89.7 H (50.0-70.0) % Lymph % (Auto) 3.4 L (20.0-40.0) % Bartholomew % (Auto) 5.5 (2.0-8.0) % Eos % (Auto) 1.0 (1.0-3.0) % Baso % (Auto) 0.1 (0.0-1.0) % Immature Gran # (Auto) 0.04 (0.00-0.50) 10^3/uL Neut # (Auto) 12.75 H (2.50-7.00) 10^3/uL Lymph # (Auto) 0.48 L (1.00-4.00) 10^3/uL Bartholomew # (Auto) 0.78 (0.10-0.80) 10^3/uL Eos # (Auto) 0.14 (0.10-0.30) 10^3/uL Baso # (Auto) 0.01 (0.00-0.10) 10^3/uL Sodium 138 (136-145) mmol/L Potassium 4.6 (3.3-5.3) mmol/L Chloride 104 (98-115) mmol/L Carbon Dioxide 20.9 L (21.0-32.0) mmol/L Anion Gap 17.7 H (5-15) mmol/L BUN 25 (6-25) mg/dL Creatinine 0.84 (0.51-1.17) mg/dL Est Cr Clr Drug Dosing TNP Estimated GFR (MDRD) > 60 mL/min Glucose 154 H (75 - 99) mg/dL Lactic Acid (0.4-2.0) mmol/L Calcium 9.0 (8.7-10.3) mg/dL Total Bilirubin 0.9 (0.2-1.0) mg/dL AST 63 H (15-37) U/L ALT 57 (12-78) U/L Alkaline Phosphatase 147 H (46-116) IU/L C-Reactive Protein 1.2 H (0.0-0.9) mg/dL Total Protein 8.5 H (6.4-8.2) g/dL Albumin 3.41 (3.00-4.80) g/dL Lipase 71 L (73-393) U/L Specimen Type Urinvoid Urine Color Yellow (YELLOW) Urine Appearance Clear (CLEAR) Urine pH 8.5 (5.0-9.0) Ur Specific [place] 1.015 (1.005-1.030) Urine Protein Negative (NEGATIVE) mg/dL Urine Glucose (UA) Negative (NEGATIVE) mg/dL Urine Ketones Negative (NEGATIVE) mg/dL Urine Occult Blood Negative (NEGATIVE) Urine Nitrite Negative (NEGATIVE) Urine Bilirubin Negative (NEGATIVE) Urine Urobilinogen 0.2 (0.2-1.0) E.U./dL Ur Leukocyte Esterase Negative (NEGATIVE) Urine RBC 0-5 (0-5) /HPF Urine WBC 0-5 (0-5) /HPF Ur Epithelial Cells Occasional /LPF Urine Bacteria Not seen (NONE TO FEW) /HPF 09/05/18 Range/Units 00:15 WBC (5.00-10.00) 10^3/uL RBC (4.50-6.00) 10^6/uL Hgb (13.0-17.0) g/dL Hct (40.0-52.0) % MCV (82.0-92.0) fL MCH (27.0-31.0) pg MCHC (32.0-36.0) g/dL RDW (11.5-14.5) % Plt Count (150-400) 10^3/uL MPV (7.4-10.4) fL Immature Gran % (Auto) (0.0-5.0) % Neut % (Auto) (50.0-70.0) % Lymph % (Auto) (20.0-40.0) % Bartholomew % (Auto) (2.0-8.0) % Eos % (Auto) (1.0-3.0) % Baso % (Auto) (0.0-1.0) % Immature Gran # (Auto) (0.00-0.50) 10^3/uL Neut # (Auto) (2.50-7.00) 10^3/uL Lymph # (Auto) (1.00-4.00) 10^3/uL Bartholomew # (Auto) (0.10-0.80) 10^3/uL Eos # (Auto) (0.10-0.30) 10^3/uL Baso # (Auto) (0.00-0.10) 10^3/uL Sodium (136-145) mmol/L Potassium (3.3-5.3) mmol/L Chloride (98-115) mmol/L Carbon Dioxide (21.0-32.0) mmol/L Anion Gap (5-15) mmol/L BUN (6-25) mg/dL Creatinine (0.51-1.17) mg/dL Est Cr Clr Drug Dosing Estimated GFR (MDRD) mL/min Glucose (75 - 99) mg/dL Lactic Acid 1.9 (0.4-2.0) mmol/L Calcium (8.7-10.3) mg/dL Total Bilirubin (0.2-1.0) mg/dL AST (15-37) U/L ALT (12-78) U/L Alkaline Phosphatase (46-116) IU/L C-Reactive Protein (0.0-0.9) mg/dL Total Protein (6.4-8.2) g/dL Albumin (3.00-4.80) g/dL Lipase (73-393) U/L Specimen Type Urine Color (YELLOW) Urine Appearance (CLEAR) Urine pH (5.0-9.0) Ur Specific [place] (1.005-1.030) Urine Protein (NEGATIVE) mg/dL Urine Glucose (UA) (NEGATIVE) mg/dL Urine Ketones (NEGATIVE) mg/dL Urine Occult Blood (NEGATIVE) Urine Nitrite (NEGATIVE) Urine Bilirubin (NEGATIVE) Urine Urobilinogen (0.2-1.0) E.U./dL Ur Leukocyte Esterase (NEGATIVE) Urine RBC (0-5) /HPF Urine WBC (0-5) /HPF Ur Epithelial Cells /LPF Urine Bacteria (NONE TO FEW) /HPF Meds: Medications Discontinued Medications Generic Name Dose Route Start Last Admin Trade Name Freq PRN Reason Stop Dose Admin Sodium Chloride Confirm 09/05/18 00:58 Normal Saline Administered 09/05/18 00:59 Dose 1,000 mls @ as directed .ROUTE .STK-MED ONE Ibuprofen 600 mg 09/05/18 00:42 Motrin PO 09/05/18 00:43 ONETIME ONE Lidocaine HCl Confirm 09/05/18 00:56 Xylocaine 1% Administered 09/05/18 00:57 Dose 20 ml .ROUTE .STK-MED ONE Lidocaine HCl Confirm 09/05/18 01:09 Xylocaine 1% Administered 09/05/18 01:10 Dose 20 ml .ROUTE .STK-MED ONE - Re-Assessments/Exams Free Text/Narrative Re-Assessment/Exam: 09/05/18 00:27 After trying and failing multiple times to establish IV access and draw labs, I called and discussed case with [facility] ER Dr. Hernandez for transfer. While we were discussing case Mackenzie let me know that they were successful in drawing labs but unable to get the IV. Dr. Hernandez accepted for transfer to ER and we will begin processing labs and CXR but wait on CT for [facility]. Patient is stable but presumably septic with the fever and tachycardia. We weren't able to draw enough blood for cultures so are reluctant to start any antibiotic such as Rocephin IM now. 09/05/18 01:20 Following the CXR blood pressure dropped to 76 systolic so an IO was placed since IV access wasn't available. Left proximal tibia site was prepped with betadine and sterile technique was used to instill 2cc of lidocaine and place the IO. It was flushed and stabilized, then NS was started. BP increased to 101 during the procedure and patient is more alert and responsive now too. EMS is preparing him for departure to [facility]. Departure - Departure Time of Disposition: 00:40 Disposition: DC/Tfer to Acute Hospital 02 Condition: Fair Clinical Impression: Tachycardia with heart rate 100-120 beats per minute Fever Qualifiers: Fever type: unspecified Qualified Code(s): R50.9 - Fever, unspecified Abdominal pain Qualifiers: Abdominal location: epigastric Qualified Code(s): R10.13 - Epigastric pain - Discharge Information - My Orders Last 24 Hours: My Active Orders 09/05/18 00:05 Chest 2V [CR] Stat 09/05/18 00:10 Abdomen Pelvis w Cont [CT] Stat - Assessment/Plan Last 24 Hours: My Active Orders 09/05/18 00:05 Chest 2V [CR] Stat 09/05/18 00:10 Abdomen Pelvis w Cont [CT] Stat
[2018-09-05] MEDS ORDERED: Ibuprofen 600 MG Tab PO ONE (00:42)
[2018-09-05 00:55] LABS: ANION GAP 17.7 mmol/L (5-15); CHLORIDE,CL 104 mmol/L (98-115); SODIUM,NA 138 mmol/L (136-145)
[2018-09-05] MEDS ORDERED: Lidocaine 1% 20 ML MDV ONE ×2 (00:56→01:09)
[2018-09-05] MEDS ORDERED: Sodium Chloride 0.9% 1,000 ML ONE (00:58)
[2018-09-05] MEDS ORDERED: Lidocaine 1% 50 ML MDV INJECT ONE (01:05)
[2018-09-05] MEDS ORDERED: Sodium Chloride 0.9% 1,000 ML IOSS ONE (01:10)
[2018-09-05 02:23] VITALS: BP 86/45
--- NOTE | 2018-09-05 08:00 | CR ---
[id number] RAD/RAD Chest PA And Lateral EXAM: FRONTAL AND LATERAL CHEST INDICATION: Fever of 104 degrees. COMPARISON: July 26, 2018. DISCUSSION: The lungs are hypoinflated with central vascular crowding and basilar atelectasis. Early basilar infiltrates are not excluded. Partially imaged fixation hardware proximal left humerus. Chronic fracture deformity of the distal left clavicle and multiple right ribs. Mild cardiomegaly without evidence of congestive heart failure. IMPRESSION: 1. Hypoinflation with central vascular crowding, bibasilar atelectasis and possibly early bibasilar infiltrates. Moy Ramos MD 09/05/18 0759 Thank you for allowing us to participate in the care of your patient.
== END 2018-09-05 01:30 ==
LOC: KA.ED 23:17
DX: R00.0 Tachycardia, unspecified (principal); R50.9 Fever, unspecified; R10.13 Epigastric pain; I10 Essential (primary) hypertension; I25.2 Old myocardial infarction; E11.9 Type 2 diabetes mellitus without complications; E66.9 Obesity, unspecified; Z91.018 Allergy to other foods; Z79.899 Other long term (current) drug therapy; Z79.4 Long term (current) use of insulin; Z68.36 Body mass index [BMI] 36.0-36.9, adult
CPT/HCPCS: 36415; 36680; 51702; 71046; 80053; 81001; 83605; 83690; 85025; 86140; 99285-25; A9270-GY; J7030

== ENCOUNTER 2018-11-06 13:22 | Inpatient (IN) | payer MEDICARE, MEDICAID ==
--- NOTE | 2018-11-06 14:23 | EDM.PDOC ---
ED HPI GENERAL MEDICAL PROBLEM - General Stated Complaint: BACK PAIN Time Seen by Provider: 11/06/18 14:03 Source of Information: Reports: Patient, Long Term Records History Limitations: Reports: No Limitations - History of Present Illness INITIAL COMMENTS - FREE TEXT/NARRATIVE: Patient brought from [place] in [place] with hypotension and recent history of septic shock. Pressures are improving now in ER at 100 systolic. Patient says he only drinks 1-2 cups of water daily but quite a bit of apple juice. He vomited once today. He has chronic back pain. - Related Data Allergies Allergy/AdvReac Type Severity Reaction Status Date / Time mustard Allergy Vomiting Verified 11/06/18 15:16 Home Meds: Home Meds metFORMIN [Glucophage] 1 tab PO BID 08/25/15 [History] Aspirin 81 mg PO DAILY 03/14/17 [History] Folic Acid 1 mg PO DAILY 03/15/17 [History] Insulin Aspart [NovoLOG] 10 unit SQ TID 03/15/17 [History] atorvaSTATin [Lipitor] 20 mg PO DAILY 03/15/17 [History] Nitroglycerin 0.4 mg SL ASDIRECTED PRN 07/31/17 [History] Carvedilol 6.25 mg PO BID 07/24/18 [History] Finasteride 5 mg PO DAILY 07/24/18 [History] Gabapentin [Neurontin] 600 mg PO TID 07/24/18 [History] Lisinopril 5 mg PO DAILY 07/24/18 [History] Melatonin 5 mg PO BEDTIME 07/24/18 [History] Omeprazole 20 mg PO BID 07/24/18 [History] Acetaminophen [Tylenol] 650 mg PO Q4H PRN tablet 07/26/18 [Rx] Alum Hydroxide/Mag Hydroxide [Mag-Al] 30 ml PO Q4H PRN cup 07/26/18 [Rx] Isosorbide Mononitrate [Imdur] 30 mg PO DAILY 07/26/18 [History] Albuterol [Proventil HFA] 1 puff INH QID PRN 11/06/18 [History] Cephalexin [Keflex] 500 mg PO TID 11/06/18 [History] Insulin Degludec [Tresiba] 80 unit SQ BEDTIME 11/06/18 [History] Loperamide [Imodium] 2 mg PO ASDIRECTED PRN 11/06/18 [History] Magnesium Hydroxide [Milk of Magnesia] 30 ml PO DAILY PRN 11/06/18 [History] OLANZapine [Olanzapine] 15 mg PO DAILY 11/06/18 [History] Thiamine HCl [B-1] 100 mg PO DAILY 11/06/18 [History] buPROPion HCl [Wellbutrin Xl] 300 mg PO DAILY 11/06/18 [History] Past Medical History HEENT History: Reports: None Cardiovascular History: Reports: High Cholesterol, Hypertension, HI Respiratory History: Reports: SOB Gastrointestinal History: Reports: Cirrhosis, Gastritis, GERD Genitourinary History: Reports: BPH, Renal Disease Musculoskeletal History: Reports: Fracture, Other (See Below) Other Musculoskeletal History: muscle weakness Neurological History: Reports: CVA, TIA, Other (See Below) Other Neuro History: TBI. personality disorder Psychiatric History: Reports: Addiction, Anxiety, Depression Other Psychiatric History: insomnia Endocrine/Metabolic History: Reports: Diabetes, Type II, Obesity/BMI 30+ Hematologic History: Reports: B12 Deficiency Immunologic History: Reports: None Oncologic (Cancer) History: Reports: None Dermatologic History: Reports: Decubitus Ulcer, Other (See Below) Other Dermatologic History: 3rd r. toe - Infectious Disease History Infectious Disease History: Reports: MRSA - Past Surgical History Head Surgeries/Procedures: Reports: None GI Surgical History: Reports: Other (See Below) Musculoskeletal Surgical History: Reports: Shoulder Surgery Social & Family History - Family History Family Medical History: Noncontributory (Reviewed and noncontributory) - Caffeine Use Caffeine Use: Reports: None ED ROS GENERAL - Review of Systems Review Of Systems: See Below Constitutional: Reports: Weakness. Denies: Fever ([facility] records show no fever either.) HEENT: Denies: Throat Pain Respiratory: Reports: Cough (just today). Denies: Shortness of Breath Cardiovascular: Denies: Chest Pain GI/Abdominal: Denies: Abdominal Pain, Constipation, Diarrhea : Denies: Dysuria, Flank Pain Musculoskeletal: Denies: Neck Pain, Shoulder Pain, Arm Pain Skin: Denies: Cyanosis, Jaundice, Mottled, Pallor, Diaphoresis Neurological: Denies: Confusion, Dizziness, Seizure Psychiatric: Denies: Agitation, Anxiety, Confusion ED EXAM, SEPSIS - Physical Exam Exam: See Below Exam Limited By: No Limitations General Appearance: WD/WN, No Apparent Distress, Lethargic Eye Exam: Bilateral Eye: EOMI, Normal Inspection, PERRL Ears: Normal External Exam, Hearing Grossly Normal Nose: Normal Inspection, No Blood Throat/Mouth: Normal Inspection, Normal Lips, Normal Voice, No Airway Compromise Head: Atraumatic, Normocephalic Neck: Normal Inspection, Full Range of Motion Respiratory/Chest: No Respiratory Distress, Crackles (very slight left), Rhonchi (mild, transient). No: Wheezing, Stridor Cardiovascular: Regular Rate, Rhythm, No Murmur Extremities: Normal Range of Motion, Non-Tender, No Pedal Edema, Normal Capillary Refill, Other (right middle toe has a small open superficial wound with moderate swelling and erythema of distal half of toe. ) Neurological: Oriented, Normal Cognition, No Motor/Sensory Deficits Psychiatric: Normal Affect, Normal Mood Skin: Warm, Dry, Intact, Normal Color, No Rash Course - Vital Signs Last Recorded V/S: Last Vital Signs Temp 96.9 F 11/06/18 15:00 Pulse 64 11/06/18 16:26 Resp 14 11/06/18 16:26 BP 100/58 L 11/06/18 16:26 Pulse Ox 100 11/06/18 15:20 - Orders/Labs/Meds Orders: Active Orders 24 hr Category Date Time Status Patient Status [ADT] Routine ADT 11/06/18 17:32 Ordered CULTURE BLOOD [BC] Stat Lab 11/06/18 14:10 Received Labs: Laboratory Tests 11/06/18 11/06/18 11/06/18 Range/Units 13:38 13:55 14:10 WBC 16.44 H (5.00-10.00) 10^3/uL RBC 3.39 L (4.50-6.00) 10^6/uL Hgb 9.2 L D (13.0-17.0) g/dL Hct 27.7 L (40.0-52.0) % MCV 81.7 L (82.0-92.0) fL MCH 27.1 (27.0-31.0) pg MCHC 33.2 (32.0-36.0) g/dL RDW 14.4 (11.5-14.5) % Plt Count 145 L (150-400) 10^3/uL MPV 9.1 (7.4-10.4) fL Immature Gran % (Auto) 0.5 (0.0-5.0) % Neut % (Auto) 80.5 H (50.0-70.0) % Lymph % (Auto) 9.2 L (20.0-40.0) % [place] % (Auto) 7.9 (2.0-8.0) % Eos % (Auto) 1.8 (1.0-3.0) % Baso % (Auto) 0.1 (0.0-1.0) % Immature Gran # (Auto) 0.08 (0.00-0.50) 10^3/uL Neut # (Auto) 13.23 H (2.50-7.00) 10^3/uL Lymph # (Auto) 1.51 (1.00-4.00) 10^3/uL [place] # (Auto) 1.30 H (0.10-0.80) 10^3/uL Eos # (Auto) 0.30 (0.10-0.30) 10^3/uL Baso # (Auto) 0.02 (0.00-0.10) 10^3/uL POC Glucose 206 H (74-106) mg/dl Lactic Acid (0.4-2.0) mmol/L Specimen Type Ur[place] Urine Color Yellow (YELLOW) Urine Appearance Clear (CLEAR) Urine pH 6.0 (5.0-9.0) Ur Specific [place] 1.020 (1.005-1.030) Urine Protein Negative (NEGATIVE) mg/dL Urine Glucose (UA) Negative (NEGATIVE) mg/dL Urine Ketones Negative (NEGATIVE) mg/dL Urine Occult Blood Negative (NEGATIVE) Urine Nitrite Negative (NEGATIVE) Urine Bilirubin Negative (NEGATIVE) Urine Urobilinogen 0.2 (0.2-1.0) E.U./dL Ur Leukocyte Esterase Negative (NEGATIVE) Urine RBC 0-5 (0-5) /HPF Urine WBC 0-5 (0-5) /HPF Ur Epithelial Cells Moderate H /LPF Urine Bacteria Few (NONE TO FEW) /HPF 11/06/18 Range/Units 14:10 WBC (5.00-10.00) 10^3/uL RBC (4.50-6.00) 10^6/uL Hgb (13.0-17.0) g/dL Hct (40.0-52.0) % MCV (82.0-92.0) fL MCH (27.0-31.0) pg MCHC (32.0-36.0) g/dL RDW (11.5-14.5) % Plt Count (150-400) 10^3/uL MPV (7.4-10.4) fL Immature Gran % (Auto) (0.0-5.0) % Neut % (Auto) (50.0-70.0) % Lymph % (Auto) (20.0-40.0) % [place] % (Auto) (2.0-8.0) % Eos % (Auto) (1.0-3.0) % Baso % (Auto) (0.0-1.0) % Immature Gran # (Auto) (0.00-0.50) 10^3/uL Neut # (Auto) (2.50-7.00) 10^3/uL Lymph # (Auto) (1.00-4.00) 10^3/uL [place] # (Auto) (0.10-0.80) 10^3/uL Eos # (Auto) (0.10-0.30) 10^3/uL Baso # (Auto) (0.00-0.10) 10^3/uL POC Glucose (74-106) mg/dl Lactic Acid 1.7 (0.4-2.0) mmol/L Specimen Type Urine Color (YELLOW) Urine Appearance (CLEAR) Urine pH (5.0-9.0) Ur Specific [place] (1.005-1.030) Urine Protein (NEGATIVE) mg/dL Urine Glucose (UA) (NEGATIVE) mg/dL Urine Ketones (NEGATIVE) mg/dL Urine Occult Blood (NEGATIVE) Urine Nitrite (NEGATIVE) Urine Bilirubin (NEGATIVE) Urine Urobilinogen (0.2-1.0) E.U./dL Ur Leukocyte Esterase (NEGATIVE) Urine RBC (0-5) /HPF Urine WBC (0-5) /HPF Ur Epithelial Cells /LPF Urine Bacteria (NONE TO FEW) /HPF Meds: Medications Discontinued Medications Generic Name Dose Route Start Last Admin Trade Name Freq PRN Reason Stop Dose Admin Sodium Chloride 1,000 mls @ 999 mls/hr 11/06/18 14:53 11/06/18 15:00 Normal Saline IV 11/06/18 15:53 999 mls/hr .BOLUS ONE Administration Sodium Chloride 1,000 mls @ 999 mls/hr 11/06/18 15:54 11/06/18 16:25 Normal Saline IV 11/06/18 16:54 999 mls/hr .BOLUS ONE Administration Levofloxacin/Dextrose 500 mg/ 100 mls @ 100 mls/hr 11/06/18 15:55 11/06/18 16 :03 Premix IV 11/06/18 16:54 100 mls/hr ONETIME ONE Administration - Re-Assessments/Exams Free Text/Narrative Re-Assessment/Exam: 11/06/18 16:00 Patient is sleepy and mildly lethargic but appears significantly better than the last time he was in ER with septic shock. WBC and ANC are elevated. Lactic acid is normal. Systolic ranges from mid 80's to low 100's in ER. Discussed with Dr. Spencer regarding admission but she wants to wait until a second liter of fluids is in to make sure she is comfortable keeping him here since he has required pressors with shock in the past. 11/06/18 16:04 CXR shows likely bilateral pulmonary infiltrates. 11/06/18 17:35 After second liter of fluids and Levaquin 500 mg patient is stable with BP at 109/72. Discussed with Dr. Spencer who accepted for admission. Discussed findings and plan with patient. Departure - Departure Time of Disposition: 17:36 Disposition: Admitted As Inpatient 64 Condition: Fair Clinical Impression: HCAP (healthcare-associated pneumonia), Neutrophilic leukocytosis Hypotension Qualifiers: Hypotension type: unspecified hypotension type Qualified Code(s): I95.9 - Hypotension, unspecified - Discharge Information Referrals: PCP,None [Primary Care Provider] - - My Orders Last 24 Hours: My Active Orders 11/06/18 14:10 CULTURE BLOOD [BC] Stat 11/06/18 17:32 Patient Status [ADT] Routine - Assessment/Plan Last 24 Hours: My Active Orders 11/06/18 14:10 CULTURE BLOOD [BC] Stat 11/06/18 17:32 Patient Status [ADT] Routine
[2018-11-06] MEDS ORDERED: Sodium Chloride 0.9% 1,000 ML IV ONE ×2 (14:53→15:54)
--- NOTE | 2018-11-06 15:23 | CR ---
[id number] RAD/RAD Chest PA And Lateral EXAM: RAD Chest PA And Lateral INDICATION: COUGH, HYPOTENSION. COMPARISON: September 04, 2018. DISCUSSION: Cardiomediastinal silhouette is enlarged. There are low lung volumes with bibasilar pulmonary opacifications, basilar predominant. These could be related to pulmonary edema versus developing pulmonary infiltrates. Follow-up imaging after appropriate therapy in 4-6 weeks is recommended to ensure resolution. IMPRESSION: As above Gustabo Worthington DO 11/06/18 1521 Thank you for allowing us to participate in the care of your patient.
[2018-11-06] MEDS ORDERED: Levofloxacin/Dextrose 5%-Water 500 MG in Premix Bag 1 BAG IV ONE (15:55)
[2018-11-06 18:55] LABS: ANION GAP 13.1 mmol/L (5-15); CHLORIDE,CL 104 mmol/L (98-115); SODIUM,NA 133 mmol/L (136-145)
[2018-11-06] MEDS: Sodium Chloride 0.9% 1,000 ML IV SCH (19:24)
[2018-11-06] MEDS: Piperacillin/Tazobactam 4.5 GM in Sodium Chloride 0.9% 100 ML IV SCH ×2 (19:30→23:58)
[2018-11-06] MEDS ORDERED: Loperamide 2 MG Cap PO PRN ×2 (20:42→23:49)
[2018-11-06] MEDS ORDERED: Aluminum Hydroxide/Magnesium Hydroxide Susp 30 ML Cup PO PRN (20:42)
[2018-11-06] MEDS ORDERED: Magnesium Hydroxide 400 MG/5 ML Susp 30 ML Cup PO PRN (20:42)
[2018-11-06] MEDS ORDERED: Nitroglycerin 0.4 MG Tab.SL SL PRN (20:42)
[2018-11-06] MEDS ORDERED: Acetaminophen 325 MG Tab PO PRN (20:42)
[2018-11-06] MEDS ORDERED: INSULIN DEGLUDEC 60 UNIT SQ SCH (21:00)
[2018-11-06] MEDS ORDERED: Non-Formulary Medication 1 Each (Melatonin [Melatonin] 5 MG) PO SCH (21:00)
[2018-11-06] MEDS: Insulin Aspart 100 Units/ML 3 ML Pen SUBCUT SCH (21:38)
[2018-11-06] MEDS ORDERED: Cefepime 2 GM in Sodium Chloride 0.9% 50 ML IV SCH (22:00)
[2018-11-06] MEDS: Insulin Detemir 100 Units/ML 3 ML Pen SUBCUT SCH (22:34)
[2018-11-06] MEDS: Melatonin 3 MG Tab PO SCH (22:35)
[2018-11-06] MEDS: Gabapentin 300 MG Cap PO SCH (22:35)
[2018-11-06] MEDS: Omeprazole 20 MG Cap.CR PO SCH (22:35)
[2018-11-07] MEDS: guaiFENesin/Dextromethorphan 100-10 MG/5 ML Soln 5 ML Cup PO PRN (00:24)
[2018-11-07] MEDS: Piperacillin/Tazobactam 4.5 GM in Sodium Chloride 0.9% 100 ML IV SCH ×3 (05:59→18:07)
[2018-11-07] MEDS: Sodium Chloride 0.9% 1,000 ML IV SCH (07:29)
[2018-11-07] MEDS: Omeprazole 20 MG Cap.CR PO SCH ×2 (07:29→17:30)
[2018-11-07] MEDS: Insulin Aspart 100 Units/ML 3 ML Pen SUBCUT SCH ×4 (07:52→21:06)
[2018-11-07 08:20] LABS: ANION GAP 15.6 mmol/L (5-15); CHLORIDE,CL 109 mmol/L (98-115); SODIUM,NA 140 mmol/L (136-145)
[2018-11-07] MEDS: Aspirin 81 MG Tab.Chew PO SCH (08:32)
[2018-11-07] MEDS: Folic Acid 1 MG Tab PO SCH (08:32)
[2018-11-07] MEDS: Isosorbide Mononitrate 30 MG Tab.ER PO SCH (08:32)
[2018-11-07] MEDS: buPROPion 150 MG Tab.ER PO SCH (08:33)
[2018-11-07] MEDS: atorvaSTATin 10 MG Tab PO SCH (08:33)
[2018-11-07] MEDS: Gabapentin 300 MG Cap PO SCH ×3 (08:33→21:04)
[2018-11-07] MEDS: OLANZapine 5 MG Tab PO SCH (08:35)
[2018-11-07] MEDS: Thiamine 100 MG Tab PO SCH (08:45)
[2018-11-07] MEDS ORDERED: Albuterol/Ipratropium 3.0-0.5 MG/3 ML Neb Soln NEB PRN (09:00)
--- NOTE | 2018-11-07 10:56 | PCM.HP ---
H&P History of Present Illness - General Date of Service: 11/06/18 Admit Problem/Dx: Admission Diagnosis/Problem Admission Diagnosis/Problem Pneumonia Source of Information: Patient, Long-Term Records, Old Records, Provider - History of Present Illness Initial Comments - Free Text/Narative: Mr. Carty is a 63yoM resident of [facility] with a history notable for DMT2 with neuropathy and recurrent foot infections, chronic pancreatitis and cirrhosis 2/2 chronic alcoholism now in remission, and recent hospitalizations for sepsis, who was noted at the SNF to need increased assistance with transfers. CBC showed WBC 17 and he was started on cephalexin 500mg TID for possible R 3rd toe infection. He was noted to have persistent hypotension with BP 75/45 on the morning of 11/06/18 and was sent to the [facility] ED for further evaluation. Upon my evaluation just after arrival in his hospital room, he endorses increased cough productive of yellow-green sputum and shortness of breath with coughing in the past 2 days. No specific alleviating or aggravating factors. He also admits to some upper mid-abdominal pain without radiation, which he states might be a little different than his intermittent RUQ pain he has experienced for months. He denies any other current complaints or major changes recently. He has been seeing podiatry and wound care, with last podiatry appt on 10/17/18 with debridement and plan to continue with local wound care as the ulceration was limited to the superficial skin. Abdominal Pain Score (Numeric/FACES): 4 - Related Data Allergies/Adverse Reactions: Allergies Allergy/AdvReac Type Severity Reaction Status Date / Time mustard Allergy Vomiting Verified 11/06/18 15:16 Home Medications: Home Meds metFORMIN [Glucophage] 1 tab PO BID 08/25/15 [History] Aspirin 81 mg PO DAILY 03/14/17 [History] Folic Acid 1 mg PO DAILY 03/15/17 [History] Insulin Aspart [NovoLOG] 10 unit SQ TID 03/15/17 [History] atorvaSTATin [Lipitor] 20 mg PO DAILY 03/15/17 [History] Nitroglycerin 0.4 mg SL ASDIRECTED PRN 07/31/17 [History] Carvedilol 6.25 mg PO BID 07/24/18 [History] Finasteride 5 mg PO DAILY 07/24/18 [History] Gabapentin [Neurontin] 600 mg PO TID 07/24/18 [History] Lisinopril 5 mg PO DAILY 07/24/18 [History] Melatonin 5 mg PO BEDTIME 07/24/18 [History] Omeprazole 20 mg PO BID 07/24/18 [History] Acetaminophen [Tylenol] 650 mg PO Q4H PRN tablet 07/26/18 [Rx] Alum Hydroxide/Mag Hydroxide [Mag-Al] 30 ml PO Q4H PRN cup 07/26/18 [Rx] Isosorbide Mononitrate [Imdur] 30 mg PO DAILY 07/26/18 [History] Albuterol [Proventil HFA] 1 puff INH QID PRN 11/06/18 [History] Cephalexin [Keflex] 500 mg PO TID 11/06/18 [History] Insulin Degludec [Tresiba] 80 unit SQ BEDTIME 11/06/18 [History] Loperamide [Imodium] 2 mg PO ASDIRECTED PRN 11/06/18 [History] Magnesium Hydroxide [Milk of Magnesia] 30 ml PO DAILY PRN 11/06/18 [History] OLANZapine [Olanzapine] 15 mg PO DAILY 11/06/18 [History] Thiamine HCl [B-1] 100 mg PO DAILY 11/06/18 [History] buPROPion HCl [Wellbutrin Xl] 300 mg PO DAILY 11/06/18 [History] Non-Formulary Medication [NF Drug] 0.5 mg SUBCUT WEEKLY 11/07/18 [History] Past Medical History HEENT History: Reports: None Cardiovascular History: Reports: High Cholesterol, Hypertension, [place] Respiratory History: Reports: SOB Gastrointestinal History: Reports: Cirrhosis, Gastritis, GERD Genitourinary History: Reports: BPH, Renal Disease Musculoskeletal History: Reports: Fracture, Other (See Below) Other Musculoskeletal History: muscle weakness Neurological History: Reports: CVA, TIA, Other (See Below) Other Neuro History: TBI. personality disorder Psychiatric History: Reports: Addiction, Anxiety, Depression Other Psychiatric History: insomnia Endocrine/Metabolic History: Reports: Diabetes, Type II, Obesity/BMI 30+ Hematologic History: Reports: B12 Deficiency Immunologic History: Reports: None Oncologic (Cancer) History: Reports: None Dermatologic History: Reports: Decubitus Ulcer, Other (See Below) Other Dermatologic History: 3rd r. toe - Infectious Disease History Infectious Disease History: Reports: MRSA - Past Surgical History Head Surgeries/Procedures: Reports: None GI Surgical History: Reports: Other (See Below) Musculoskeletal Surgical History: Reports: Shoulder Surgery Social & Family History - Family History Family Medical History: Noncontributory Endocrine/Metabolic: Reports: Diabetes, type II - Tobacco Use Smoking Status *Q: Never Smoker Second Hand Smoke Exposure: No - Caffeine Use Caffeine Use: Reports: None - Recreational Drug Use Recreational Drug Use: No H&P Review of Systems - Review of Systems: Review Of Systems: See Below General: Reports: Fatigue. Denies: Fever, Chills HEENT: Denies: Ear Pain, Eye Pain, Headaches, Rhinitis Pulmonary: Reports: Shortness of Breath, Cough, Sputum. Denies: Wheezing, Pleuritic Chest Pain Cardiovascular: Reports: Edema (chronic). Denies: Chest Pain, Dyspnea on Exertion, Lightheadedness Gastrointestinal: Reports: Abdominal Pain. Denies: Constipation, Diarrhea, Decreased Appetite, Distension, Hematochezia, Melena, Nausea, Vomiting Genitourinary: Denies: Dysuria, Frequency, Burning, Pain Musculoskeletal: Reports: Foot Pain. Denies: Neck Pain, Shoulder Pain, Back Pain Skin: Reports: Wound. Denies: Jaundice, Rash Psychiatric: Denies: Confusion, Depression, Anxiety Neurological: Reports: Numbness, Tingling. Denies: Confusion, Dizziness Hematologic/Lymphatic: Denies: Easy Bleeding, Easy Bruising, Swollen Glands Exam - Exam Exam: See Below - Vital Signs Vital Signs: Last Vital Signs Temp 36.9 C 11/07/18 06:43 Pulse 87 11/07/18 06:43 Resp 20 11/07/18 06:43 BP 149/88 H 11/07/18 08:32 Pulse Ox 99 11/07/18 06:43 Weight: 105.857 kg - Exam Physical Exam Comments:: GENERAL: Obese male sitting in hospital bed in no acute distress. HEENT: Normocephalic, atraumatic. Conjunctiva clear. Nares patent without discharge. Mucous membranes moist, posterior pharynx unremarkable. NECK: Supple, no masses. CV: Regular rate and rhythm, no murmurs, rubs, or gallops. 2+ radial pulses. PULMONARY: Normal effort, faint rhonchi in bilateral bases, no wheezes or rales. ABDOMEN: Positive bowel sounds, soft, mild tenderness to only deep palpation in the upper mid-abdomen, nondistended. EXTREMITIES: Trace ankle edema, no cyanosis or clubbing. MUSCULOSKELETAL: Moves all extremities well. NEUROLOGICAL: No obvious deficits. DERMATOLOGIC: No rashes or suspicious lesions in exposed areas. Bilateral legs shiny, hairless, and with stasis dermatitis changes. R 3rd toe with superficial ulceration measuring 1 x 1.5cm to tip on top of dark colored digit without surrounding erythema, warmth, or discharge. PSYCHIATRIC: Alert, interactive, appropriate affect, poor insight. - Patient Data Lab Results Last 24 hrs: Laboratory Results - last 24 hr 11/06/18 11/06/18 11/06/18 Range/Units 13:38 13:55 14:10 WBC 16.44 H (5.00-10.00) 10^3/uL RBC 3.39 L (4.50-6.00) 10^6/uL Hgb 9.2 L D (13.0-17.0) g/dL Hct 27.7 L (40.0-52.0) % MCV 81.7 L (82.0-92.0) fL MCH 27.1 (27.0-31.0) pg MCHC 33.2 (32.0-36.0) g/dL RDW 14.4 (11.5-14.5) % Plt Count 145 L (150-400) 10^3/uL MPV 9.1 (7.4-10.4) fL Immature Gran % (Auto) 0.5 (0.0-5.0) % Neut % (Auto) 80.5 H (50.0-70.0) % Lymph % (Auto) 9.2 L (20.0-40.0) % [place] % (Auto) 7.9 (2.0-8.0) % Eos % (Auto) 1.8 (1.0-3.0) % Baso % (Auto) 0.1 (0.0-1.0) % Immature Gran # (Auto) 0.08 (0.00-0.50) 10^3/uL Neut # (Auto) 13.23 H (2.50-7.00) 10^3/uL Lymph # (Auto) 1.51 (1.00-4.00) 10^3/uL [place] # (Auto) 1.30 H (0.10-0.80) 10^3/uL Eos # (Auto) 0.30 (0.10-0.30) 10^3/uL Baso # (Auto) 0.02 (0.00-0.10) 10^3/uL Sodium (136-145) mmol/L Potassium (3.3-5.3) mmol/L Chloride (98-115) mmol/L Carbon Dioxide (21.0-32.0) mmol/L Anion Gap (5-15) mmol/L BUN (6-25) mg/dL Creatinine (0.51-1.17) mg/dL Est Cr Clr Drug Dosing mL/min Estimated GFR (MDRD) mL/min Glucose (75 - 99) mg/dL POC Glucose 206 H (74-106) mg/dl Lactic Acid (0.4-2.0) mmol/L Calcium (8.7-10.3) mg/dL Total Bilirubin (0.2-1.0) mg/dL AST (15-37) U/L ALT (12-78) U/L Alkaline Phosphatase (46-116) IU/L Troponin I (0.00-0.070) ng/mL Total Protein (6.4-8.2) g/dL Albumin (3.00-4.80) g/dL Amylase (25-125) U/L Lipase (73-393) U/L Specimen Type [place] Urine Color Yellow (YELLOW) Urine Appearance Clear (CLEAR) Urine pH 6.0 (5.0-9.0) Ur Specific [place] 1.020 (1.005-1.030) Urine Protein Negative (NEGATIVE) mg/dL Urine Glucose (UA) Negative (NEGATIVE) mg/dL Urine Ketones Negative (NEGATIVE) mg/dL Urine Occult Blood Negative (NEGATIVE) Urine Nitrite Negative (NEGATIVE) Urine Bilirubin Negative (NEGATIVE) Urine Urobilinogen 0.2 (0.2-1.0) E.U./dL Ur Leukocyte Esterase Negative (NEGATIVE) Urine RBC 0-5 (0-5) /HPF Urine WBC 0-5 (0-5) /HPF Ur Epithelial Cells Moderate H /LPF Urine Bacteria Few (NONE TO FEW) /HPF 11/06/18 11/06/18 11/06/18 Range/Units 14:10 17:30 17:30 WBC (5.00-10.00) 10^3/uL RBC (4.50-6.00) 10^6/uL Hgb (13.0-17.0) g/dL Hct (40.0-52.0) % MCV (82.0-92.0) fL MCH (27.0-31.0) pg MCHC (32.0-36.0) g/dL RDW (11.5-14.5) % Plt Count (150-400) 10^3/uL MPV (7.4-10.4) fL Immature Gran % (Auto) (0.0-5.0) % Neut % (Auto) (50.0-70.0) % Lymph % (Auto) (20.0-40.0) % [place] % (Auto) (2.0-8.0) % Eos % (Auto) (1.0-3.0) % Baso % (Auto) (0.0-1.0) % Immature Gran # (Auto) (0.00-0.50) 10^3/uL Neut # (Auto) (2.50-7.00) 10^3/uL Lymph # (Auto) (1.00-4.00) 10^3/uL [place] # (Auto) (0.10-0.80) 10^3/uL Eos # (Auto) (0.10-0.30) 10^3/uL Baso # (Auto) (0.00-0.10) 10^3/uL Sodium 133 L (136-145) mmol/L Potassium 4.4 (3.3-5.3) mmol/L Chloride 104 (98-115) mmol/L Carbon Dioxide 20.3 L (21.0-32.0) mmol/L Anion Gap 13.1 (5-15) mmol/L BUN 27 H (6-25) mg/dL Creatinine 1.05 (0.51-1.17) mg/dL Est Cr Clr Drug Dosing 67.86 mL/min Estimated GFR (MDRD) > 60 mL/min Glucose 168 H (75 - 99) mg/dL POC Glucose (74-106) mg/dl Lactic Acid 1.7 (0.4-2.0) mmol/L Calcium 8.5 L (8.7-10.3) mg/dL Total Bilirubin 0.9 (0.2-1.0) mg/dL AST 63 H (15-37) U/L ALT 92 H (12-78) U/L Alkaline Phosphatase 99 (46-116) IU/L Troponin I < 0.04 (0.00-0.070) ng/mL Total Protein 8.0 (6.4-8.2) g/dL Albumin 2.64 L (3.00-4.80) g/dL Amylase 33 (25-125) U/L Lipase 74 (73-393) U/L Specimen Type Urine Color (YELLOW) Urine Appearance (CLEAR) Urine pH (5.0-9.0) Ur Specific [place] (1.005-1.030) Urine Protein (NEGATIVE) mg/dL Urine Glucose (UA) (NEGATIVE) mg/dL Urine Ketones (NEGATIVE) mg/dL Urine Occult Blood (NEGATIVE) Urine Nitrite (NEGATIVE) Urine Bilirubin (NEGATIVE) Urine Urobilinogen (0.2-1.0) E.U./dL Ur Leukocyte Esterase (NEGATIVE) Urine RBC (0-5) /HPF Urine WBC (0-5) /HPF Ur Epithelial Cells /LPF Urine Bacteria (NONE TO FEW) /HPF 11/06/18 11/07/18 11/07/18 Range/Units 21:38 07:31 07:50 WBC 9.97 (5.00-10.00) 10^3/uL RBC 3.70 L (4.50-6.00) 10^6/uL Hgb 10.1 L (13.0-17.0) g/dL Hct 30.1 L (40.0-52.0) % MCV 81.4 L (82.0-92.0) fL MCH 27.3 (27.0-31.0) pg MCHC 33.6 (32.0-36.0) g/dL RDW 14.3 (11.5-14.5) % Plt Count 129 L (150-400) 10^3/uL MPV 8.5 (7.4-10.4) fL Immature Gran % (Auto) 0.5 (0.0-5.0) % Neut % (Auto) 77.7 H (50.0-70.0) % Lymph % (Auto) 11.3 L (20.0-40.0) % [place] % (Auto) 6.5 (2.0-8.0) % Eos % (Auto) 3.8 H (1.0-3.0) % Baso % (Auto) 0.2 (0.0-1.0) % Immature Gran # (Auto) 0.05 (0.00-0.50) 10^3/uL Neut # (Auto) 7.74 H (2.50-7.00) 10^3/uL Lymph # (Auto) 1.13 (1.00-4.00) 10^3/uL [place] # (Auto) 0.65 (0.10-0.80) 10^3/uL Eos # (Auto) 0.38 H (0.10-0.30) 10^3/uL Baso # (Auto) 0.02 (0.00-0.10) 10^3/uL Sodium (136-145) mmol/L Potassium (3.3-5.3) mmol/L Chloride (98-115) mmol/L Carbon Dioxide (21.0-32.0) mmol/L Anion Gap (5-15) mmol/L BUN (6-25) mg/dL Creatinine (0.51-1.17) mg/dL Est Cr Clr Drug Dosing mL/min Estimated GFR (MDRD) mL/min Glucose (75 - 99) mg/dL POC Glucose 168 H 166 H (74-106) mg/dl Lactic Acid (0.4-2.0) mmol/L Calcium (8.7-10.3) mg/dL Total Bilirubin (0.2-1.0) mg/dL AST (15-37) U/L ALT (12-78) U/L Alkaline Phosphatase (46-116) IU/L Troponin I (0.00-0.070) ng/mL Total Protein (6.4-8.2) g/dL Albumin (3.00-4.80) g/dL Amylase (25-125) U/L Lipase (73-393) U/L Specimen Type Urine Color (YELLOW) Urine Appearance (CLEAR) Urine pH (5.0-9.0) Ur Specific [place] (1.005-1.030) Urine Protein (NEGATIVE) mg/dL Urine Glucose (UA) (NEGATIVE) mg/dL Urine Ketones (NEGATIVE) mg/dL Urine Occult Blood (NEGATIVE) Urine Nitrite (NEGATIVE) Urine Bilirubin (NEGATIVE) Urine Urobilinogen (0.2-1.0) E.U./dL Ur Leukocyte Esterase (NEGATIVE) Urine RBC (0-5) /HPF Urine WBC (0-5) /HPF Ur Epithelial Cells /LPF Urine Bacteria (NONE TO FEW) /HPF 11/07/18 11/07/18 Range/Units 07:50 07:50 WBC (5.00-10.00) 10^3/uL RBC (4.50-6.00) 10^6/uL Hgb (13.0-17.0) g/dL Hct (40.0-52.0) % MCV (82.0-92.0) fL MCH (27.0-31.0) pg MCHC (32.0-36.0) g/dL RDW (11.5-14.5) % Plt Count (150-400) 10^3/uL MPV (7.4-10.4) fL Immature Gran % (Auto) (0.0-5.0) % Neut % (Auto) (50.0-70.0) % Lymph % (Auto) (20.0-40.0) % [place] % (Auto) (2.0-8.0) % Eos % (Auto) (1.0-3.0) % Baso % (Auto) (0.0-1.0) % Immature Gran # (Auto) (0.00-0.50) 10^3/uL Neut # (Auto) (2.50-7.00) 10^3/uL Lymph # (Auto) (1.00-4.00) 10^3/uL [place] # (Auto) (0.10-0.80) 10^3/uL Eos # (Auto) (0.10-0.30) 10^3/uL Baso # (Auto) (0.00-0.10) 10^3/uL Sodium 140 (136-145) mmol/L Potassium 4.4 (3.3-5.3) mmol/L Chloride 109 (98-115) mmol/L Carbon Dioxide 19.8 L (21.0-32.0) mmol/L Anion Gap 15.6 H (5-15) mmol/L BUN 19 (6-25) mg/dL Creatinine 0.73 (0.51-1.17) mg/dL Est Cr Clr Drug Dosing 97.60 mL/min Estimated GFR (MDRD) > 60 mL/min Glucose 179 H (75 - 99) mg/dL POC Glucose (74-106) mg/dl Lactic Acid 1.5 (0.4-2.0) mmol/L Calcium 8.6 L (8.7-10.3) mg/dL Total Bilirubin 0.8 (0.2-1.0) mg/dL AST 34 (15-37) U/L ALT 77 (12-78) U/L Alkaline Phosphatase 118 H (46-116) IU/L Troponin I (0.00-0.070) ng/mL Total Protein 8.2 (6.4-8.2) g/dL Albumin 2.72 L (3.00-4.80) g/dL Amylase (25-125) U/L Lipase (73-393) U/L Specimen Type Urine Color (YELLOW) Urine Appearance (CLEAR) Urine pH (5.0-9.0) Ur Specific [place] (1.005-1.030) Urine Protein (NEGATIVE) mg/dL Urine Glucose (UA) (NEGATIVE) mg/dL Urine Ketones (NEGATIVE) mg/dL Urine Occult Blood (NEGATIVE) Urine Nitrite (NEGATIVE) Urine Bilirubin (NEGATIVE) Urine Urobilinogen (0.2-1.0) E.U./dL Ur Leukocyte Esterase (NEGATIVE) Urine RBC (0-5) /HPF Urine WBC (0-5) /HPF Ur Epithelial Cells /LPF Urine Bacteria (NONE TO FEW) /HPF Result Diagrams: 11/07/18 07:50 11/07/18 07:50 Problem List Initiated/Reviewed/Updated: Yes Orders Last 24hrs: Active Orders 24 hr Category Date Time Status Patient Status [ADT] Routine ADT 11/06/18 17:32 Ordered Blood Glucose Check, Bedside [RC] QIDACANDBED Care 11/06/18 20:42 Active Height and Weight [RC] 0700 Care 11/06/18 20:51 Active Intake and Output [RC] 0600,1400,2200 Care 11/06/18 20:51 Active Oxygen Therapy [RC] PRN Care 11/06/18 20:51 Active Pulse Oximetry [RC] PRN Care 11/06/18 20:51 Active RT Aerosol Therapy [RC] ASDIRECTED Care 11/07/18 09:06 Active Up With Assistance [RC] ASDIRECTED Care 11/06/18 20:51 Active Vital Signs [RC] Q8H Care 11/06/18 20:51 Active [place] [employer] Diet [DIET] Diet 11/06/18 Dinner Active CBC WITH AUTO DIFF [HEME] AM Lab 11/08/18 05:11 Ordered COMPREHENSIVE METABOLIC PN,CMP [CHEM] AM Lab 11/08/18 05:11 Ordered CULTURE BLOOD [BC] Stat Lab 11/06/18 14:10 Received CULTURE BLOOD [BC] Stat Lab 11/06/18 14:30 Received PROCALCITONIN [REF] Routine Lab 11/06/18 17:30 Received VANCOMYCIN TROUGH [CHEM] Routine Lab 11/08/18 07:30 Ordered Acetaminophen [Tylenol] Med 11/06/18 20:42 Active 650 mg PO Q6H PRN Albuterol/Ipratropium [DuoNeb 3.0-0.5 MG/3 ML] Med 11/07/18 09:00 Active 3 ml NEB Q4HRRT PRN Alum Hydroxide/Mag Hydroxide [Mag-Al Susp] Med 11/06/18 20:42 Active 30 ml PO Q4H PRN Aspirin Med 11/07/18 09:00 Active 81 mg PO DAILY Carvedilol [Coreg] Med 11/07/18 21:00 Active 6.25 mg PO BID Dextromethorphan/guaiFENesin [Robitussin DM] Med 11/07/18 00:04 Active 10 ml PO Q4H PRN Enoxaparin [Lovenox] Med 11/07/18 12:00 Active 40 mg SUBCUT Q24H Finasteride [Proscar] Med 11/08/18 09:00 Active 5 mg PO DAILY Folic Acid Med 11/07/18 09:00 Active 1 mg PO DAILY Gabapentin [Neurontin] Med 11/06/18 21:00 Active 600 mg PO TID Insulin Aspart [NovoLOG] Med 11/06/18 22:00 Active See Protocol SUBCUT WITHMEALSANDBED Insulin Detemir [Levemir] Med 11/06/18 21:00 Active 60 unit SUBCUT BEDTIME Isosorbide Mononitrate [Imdur] Med 11/07/18 09:00 Active 30 mg PO DAILY Lisinopril [Prinivil] Med 11/08/18 09:00 Active 5 mg PO DAILY Loperamide [Imodium] Med 11/06/18 23:49 Active 2 mg PO Q4H PRN Magnesium Hydroxide [Milk of Magnesia] Med 11/06/18 20:42 Active 30 ml PO DAILY PRN Melatonin Med 11/06/18 21:57 Active 6 mg PO BEDTIME Nitroglycerin [Nitrostat] Med 11/06/18 20:42 Active 0.4 mg SL ASDIRECTED PRN OLANZapine [ZyPREXA] Med 11/07/18 09:00 Active 15 mg PO DAILY Omeprazole Med 11/06/18 21:45 Active 20 mg PO BIDAC Pharmacy to Dose - Vancomycin Med 11/06/18 18:45 Pending 1 dose .XX ASDIRECTED Piperacillin/Tazobactam [Zosyn] 4.5 gm Med 11/06/18 18:00 Active Sodium Chloride 0.9% [Normal Saline] 100 ml IV Q6H Thiamine [Vitamin B-1] Med 11/07/18 09:00 Active 100 mg PO DAILY Vancomycin 1.25 gm Med 11/06/18 20:00 Active Sodium Chloride 0.9% [Normal Saline] 250 ml IV Q12H atorvaSTATin [Lipitor] Med 11/07/18 09:00 Active 20 mg PO DAILY buPROPion [Wellbutrin XL] Med 11/07/18 09:00 Active 300 mg PO DAILY Blood Culture x2 Reflex Set [OM.PC] Stat Oth 11/06/18 18:41 Ordered Code Status [Resuscitation Status] Routine Resus Stat 11/06/18 19:35 Ordered Medication Orders Acetaminophen (Tylenol) 650 mg PO Q6H PRN PRN Reason: analgesia/fever Al Hydroxide/Mg Hydroxide (Mag-Al Susp) 30 ml PO Q4H PRN PRN Reason: Indigestion Albuterol/Ipratropium (Duoneb 3.0-0.5 Mg/3 Ml) 3 ml NEB Q4HRRT PRN PRN Reason: wheezing, cough Aspirin (Aspirin) 81 mg PO DAILY [facility] Last Admin: 11/07/18 08:32 Dose: 81 mg Atorvastatin Calcium (Lipitor) 20 mg PO DAILY [facility] Last Admin: 11/07/18 08:33 Dose: 20 mg Bupropion HCl (Wellbutrin Xl) 300 mg PO DAILY [facility] Last Admin: 11/07/18 08:33 Dose: 300 mg Carvedilol (Coreg) 6.25 mg PO BID [facility] Enoxaparin Sodium (Lovenox) 40 mg SUBCUT Q24H [facility] Finasteride (Proscar) 5 mg PO DAILY [facility] Folic Acid (Folic Acid) 1 mg PO DAILY [facility] Last Admin: 11/07/18 08:32 Dose: 1 mg Gabapentin (Neurontin) 600 mg PO TID [facility] Last Admin: 11/07/18 08:33 Dose: 600 mg Admin: 11/06/18 22:35 Dose: 600 mg Guaifenesin/Phenylephrine HCl (Robitussin Dm) 10 ml PO Q4H PRN PRN Reason: Cough Last Admin: 11/07/18 00:24 Dose: 10 ml Piperacillin Sod/Tazobactam (Sod 4.5 gm/ Sodium Chloride) 100 mls @ 200 mls/hr IV Q6H [facility] Last Admin: 11/07/18 05:59 Dose: 200 mls/hr Admin: 11/06/18 23:58 Dose: 200 mls/hr Admin: 11/06/18 19:30 Dose: 200 mls/hr Vancomycin HCl 1.25 gm/ Sodium (Chloride) 250 mls @ 166.667 mls/hr IV Q12H [facility] Last Admin: 11/07/18 07:58 Dose: 166.667 mls/hr Admin: 11/06/18 21:23 Dose: 166.667 mls/hr Insulin Aspart (Novolog) 0 unit SUBCUT WITHMEALSANDBED [facility]; Protocol Last Admin: 11/07/18 07:52 Dose: 3 units Admin: 11/06/18 21:38 Dose: 3 units Insulin Detemir (Levemir) 60 unit SUBCUT BEDTIME [facility] Last Admin: 11/06/18 22:34 Dose: 60 units Isosorbide Mononitrate (Imdur) 30 mg PO DAILY [facility] Last Admin: 11/07/18 08:32 Dose: 30 mg Lisinopril (Prinivil) 5 mg PO DAILY [facility] Loperamide HCl (Imodium) 2 mg PO Q4H PRN PRN Reason: Diarrhea Magnesium Hydroxide (Milk Of Magnesia) 30 ml PO DAILY PRN PRN Reason: Constipation Melatonin (Melatonin) 6 mg PO BEDTIME [facility] Last Admin: 11/06/18 22:35 Dose: 6 mg Nitroglycerin (Nitrostat) 0.4 mg SL ASDIRECTED PRN PRN Reason: Chest Pain Olanzapine (Zyprexa) 15 mg PO DAILY [facility] Last Admin: 11/07/18 08:35 Dose: 15 mg Omeprazole (Omeprazole) 20 mg PO BIDAC [facility] Last Admin: 11/07/18 07:29 Dose: 20 mg Admin: 11/06/18 22:35 Dose: 20 mg Thiamine HCl (Vitamin B-1) 100 mg PO DAILY [facility] Last Admin: 11/07/18 08:45 Dose: 100 mg Vancomycin HCl (Pharmacy To Dose - Vancomycin) 1 dose .XX ASDIRECTED [facility] Assessment/Plan Comment:: HPI summary: Mr. Carty is a 63yoM resident of [facility] with a history notable for DMT2 with neuropathy and recurrent foot infections, chronic pancreatitis and cirrhosis 2/2 chronic alcoholism now in remission, and recent hospitalizations for sepsis, who was noted at the SNF to need increased assistance with transfers. CBC showed WBC 17 and he was started on cephalexin 500mg TID for possible R 3rd toe infection. He was noted to have persistent hypotension with BP 75/45 on the morning of 11/06/18 and was sent to the [facility] ED for further evaluation. He endorses increased cough productive of yellow-green sputum and shortness of breath with coughing in the past 2 days. ED course: He was noted to be hypotensive with BP 76/43 initially, though with other VS normal, including P 68. He complained of cough, but didn't have an increased work of breathing. There was apparently difficulty with IV access and obtaining labs, so only a CBC, lactic acid, and blood culture x1 were obtained prior to have [employer] place IV. UA without evidence of infection. CXR showed bibasilar opacifications, thought to be related to edema versus developing infiltrates. He was given 500cc of NS with improvement in BPs to the 80s systolic and levofloxacin 500mg IV. I was called for admission for pneumonia and hypotension. I inquired about patient's foot exam given history of reported worsening 3rd toe wound and being started on cephalexin the day prior for this and was told these had not yet been examined. I declined admission with instructions to perform detailed skin exam and give full 2 liter bolus of NS with subsequent monitoring of BPs and be called back with status update. Following this, I was again called for admission and was informed that his foot didn't look acutely infected and BPs had improved to 90s-100s systolic. I specifically inquired about liver and pancreas exam findings given his history of cirrhosis and pancreatitis and was told by the ED provider that they were normal and there was no concern. He was admitted. Hospital course: Upon evaluation of the patient and work-up just after patient's arrival on the floor, I noted that only serum laboratory studies completed were a CBC and lactic acid. I confirmed with KALA Gustafson of Patient Services, and Adrian Menchaca PA-C and ED provider, that no other labs had been performed. CMP, amylase, lipase, troponin, procalcitonin, and 2nd blood culture were added on to previously collected blood (prior to antibiotic administration). Hospitalization problems: # Hypotension # Possible bibasilar pneumonia # Mid upper abdominal pain # Right 3rd toe wound, chronic Hypotension improving with IVF and without tachycardia or lactic acidosis, but without evaluation of renal or hepatic function, pancreatic enzymes, or troponin , which is highly important given history of recent sepsis and history of cirrhosis, pancreatitis, and CAD. Differential diagnosis includes sepsis, but reassuring clinical status at this time. Source of infection likely pneumonia versus intrabdominal pathology (pending laboratory results to guide further evaluation with imaging) and less likely diabetic foot wound given chronic presence and lack of clinical evidence of infection. - CMP, amylase, lipase, troponin, procalcitonin, and second blood culture now ; added on to prior collected blood, if possible - Consider abdominal imaging based on laboratory results - Zosyn and vancomycin per pharmacy dosing for possible pneumonia given HCAP status and recent hospitalization, which would also cover for intraabdominal pathology - DuoNeb q4h prn - VS q4h - Monitor I/O - Repeat AM labs based on above results Chronic, stable conditions: # Lung nodule: Followed by lung nodule clinic. # CAD / HTN: Holding carvedilol 6.25mg BID and lisinopril 5mg. Continue isosorbide, nitro prn, ASA 81mg. # Cirrhosis # History of chronic pancreatitis #DMT2 with neuropathy: Hold metformin 1000mg BID while inpatient. Decrease long acting insulin (Tresiba as outpatient) from 80 to 60un while inpatient for now. Hold scheduledNovoLog 10mg TID and instead use high dose ISS. Continue semaglutide weekly. Continue gabapentin 600mg TID. # HLD: Continue atorvastatin 20mg. # GERD: Continue omeprazole 20mg. # BPH: Holding finasteride 5mg. # Pain: Continue acetaminophen prn <2g daily. # History alcohol abuse: Continue folic acid, thiamine.Sober since admission to SNF. Has a history of obtaining alcohol from outside sources through multiple means. #Anxiety / behavioral disturbance: Continue olanzapine 15mg, bupropion 300mg. # Insomnia: Continue melatonin. Hospitalization details: # FEN: NS @ 125cc/hr. Electrolytes pending. ADA diet. # PPX: Enoxaparin for DVT ppx. # Code status: FULL. # Emergency contact: Guardian agency, updated by [facility]/nursing staff. # Disposition: Admit to inpatient status. Anticipate discharge back to [facility] SNF when clinically improved.
--- NOTE | 2018-11-07 10:56 | PCM.PN ---
- General Info Date of Service: 11/07/18 Subjective Update: Mr. Carty reports feeling much better this morning. He states his cough has improved. At baseline shortness of breath with moving around a lot, but otherwise without any respiratory complaints. Denies chest pain. Endorses some mild upper abdominal pain, not much different form his baseline now. Thinks his toe is doing better than prior. Discussed podiatry recommendations for not proceeding with amputation and he states that he has "now been told that by 9 people and beginning to think they're right." No new concerns. Tolerating diet without problem. - Patient Data Vitals - Most Recent: Last Vital Signs Temp 36.9 C 11/07/18 06:43 Pulse 87 11/07/18 06:43 Resp 20 11/07/18 06:43 BP 149/88 H 11/07/18 08:32 Pulse Ox 99 11/07/18 06:43 Weight - Most Recent: 105.857 kg I&O - Last 24 Hours: Intake & Output 11/06/18 11/07/18 11/07/18 22:59 06:59 14:59 Intake Total 3105 967 Output Total 600 1400 Balance 2505 -433 Lab Results Last 24 Hours: Laboratory Results - last 24 hr 11/06/18 11/06/18 11/06/18 Range/Units 13:38 13:55 14:10 WBC 16.44 H (5.00-10.00) 10^3/uL RBC 3.39 L (4.50-6.00) 10^6/uL Hgb 9.2 L D (13.0-17.0) g/dL Hct 27.7 L (40.0-52.0) % MCV 81.7 L (82.0-92.0) fL MCH 27.1 (27.0-31.0) pg MCHC 33.2 (32.0-36.0) g/dL RDW 14.4 (11.5-14.5) % Plt Count 145 L (150-400) 10^3/uL MPV 9.1 (7.4-10.4) fL Immature Gran % (Auto) 0.5 (0.0-5.0) % Neut % (Auto) 80.5 H (50.0-70.0) % Lymph % (Auto) 9.2 L (20.0-40.0) % [place] % (Auto) 7.9 (2.0-8.0) % Eos % (Auto) 1.8 (1.0-3.0) % Baso % (Auto) 0.1 (0.0-1.0) % Immature Gran # (Auto) 0.08 (0.00-0.50) 10^3/uL Neut # (Auto) 13.23 H (2.50-7.00) 10^3/uL Lymph # (Auto) 1.51 (1.00-4.00) 10^3/uL [place] # (Auto) 1.30 H (0.10-0.80) 10^3/uL Eos # (Auto) 0.30 (0.10-0.30) 10^3/uL Baso # (Auto) 0.02 (0.00-0.10) 10^3/uL Sodium (136-145) mmol/L Potassium (3.3-5.3) mmol/L Chloride (98-115) mmol/L Carbon Dioxide (21.0-32.0) mmol/L Anion Gap (5-15) mmol/L BUN (6-25) mg/dL Creatinine (0.51-1.17) mg/dL Est Cr Clr Drug Dosing mL/min Estimated GFR (MDRD) mL/min Glucose (75 - 99) mg/dL POC Glucose 206 H (74-106) mg/dl Lactic Acid (0.4-2.0) mmol/L Calcium (8.7-10.3) mg/dL Total Bilirubin (0.2-1.0) mg/dL AST (15-37) U/L ALT (12-78) U/L Alkaline Phosphatase (46-116) IU/L Troponin I (0.00-0.070) ng/mL Total Protein (6.4-8.2) g/dL Albumin (3.00-4.80) g/dL Amylase (25-125) U/L Lipase (73-393) U/L Specimen Type [place] Urine Color Yellow (YELLOW) Urine Appearance Clear (CLEAR) Urine pH 6.0 (5.0-9.0) Ur Specific [place] 1.020 (1.005-1.030) Urine Protein Negative (NEGATIVE) mg/dL Urine Glucose (UA) Negative (NEGATIVE) mg/dL Urine Ketones Negative (NEGATIVE) mg/dL Urine Occult Blood Negative (NEGATIVE) Urine Nitrite Negative (NEGATIVE) Urine Bilirubin Negative (NEGATIVE) Urine Urobilinogen 0.2 (0.2-1.0) E.U./dL Ur Leukocyte Esterase Negative (NEGATIVE) Urine RBC 0-5 (0-5) /HPF Urine WBC 0-5 (0-5) /HPF Ur Epithelial Cells Moderate H /LPF Urine Bacteria Few (NONE TO FEW) /HPF 11/06/18 11/06/18 11/06/18 Range/Units 14:10 17:30 17:30 WBC (5.00-10.00) 10^3/uL RBC (4.50-6.00) 10^6/uL Hgb (13.0-17.0) g/dL Hct (40.0-52.0) % MCV (82.0-92.0) fL MCH (27.0-31.0) pg MCHC (32.0-36.0) g/dL RDW (11.5-14.5) % Plt Count (150-400) 10^3/uL MPV (7.4-10.4) fL Immature Gran % (Auto) (0.0-5.0) % Neut % (Auto) (50.0-70.0) % Lymph % (Auto) (20.0-40.0) % [place] % (Auto) (2.0-8.0) % Eos % (Auto) (1.0-3.0) % Baso % (Auto) (0.0-1.0) % Immature Gran # (Auto) (0.00-0.50) 10^3/uL Neut # (Auto) (2.50-7.00) 10^3/uL Lymph # (Auto) (1.00-4.00) 10^3/uL [place] # (Auto) (0.10-0.80) 10^3/uL Eos # (Auto) (0.10-0.30) 10^3/uL Baso # (Auto) (0.00-0.10) 10^3/uL Sodium 133 L (136-145) mmol/L Potassium 4.4 (3.3-5.3) mmol/L Chloride 104 (98-115) mmol/L Carbon Dioxide 20.3 L (21.0-32.0) mmol/L Anion Gap 13.1 (5-15) mmol/L BUN 27 H (6-25) mg/dL Creatinine 1.05 (0.51-1.17) mg/dL Est Cr Clr Drug Dosing 67.86 mL/min Estimated GFR (MDRD) > 60 mL/min Glucose 168 H (75 - 99) mg/dL POC Glucose (74-106) mg/dl Lactic Acid 1.7 (0.4-2.0) mmol/L Calcium 8.5 L (8.7-10.3) mg/dL Total Bilirubin 0.9 (0.2-1.0) mg/dL AST 63 H (15-37) U/L ALT 92 H (12-78) U/L Alkaline Phosphatase 99 (46-116) IU/L Troponin I < 0.04 (0.00-0.070) ng/mL Total Protein 8.0 (6.4-8.2) g/dL Albumin 2.64 L (3.00-4.80) g/dL Amylase 33 (25-125) U/L Lipase 74 (73-393) U/L Specimen Type Urine Color (YELLOW) Urine Appearance (CLEAR) Urine pH (5.0-9.0) Ur Specific [place] (1.005-1.030) Urine Protein (NEGATIVE) mg/dL Urine Glucose (UA) (NEGATIVE) mg/dL Urine Ketones (NEGATIVE) mg/dL Urine Occult Blood (NEGATIVE) Urine Nitrite (NEGATIVE) Urine Bilirubin (NEGATIVE) Urine Urobilinogen (0.2-1.0) E.U./dL Ur Leukocyte Esterase (NEGATIVE) Urine RBC (0-5) /HPF Urine WBC (0-5) /HPF Ur Epithelial Cells /LPF Urine Bacteria (NONE TO FEW) /HPF 11/06/18 11/07/18 11/07/18 Range/Units 21:38 07:31 07:50 WBC 9.97 (5.00-10.00) 10^3/uL RBC 3.70 L (4.50-6.00) 10^6/uL Hgb 10.1 L (13.0-17.0) g/dL Hct 30.1 L (40.0-52.0) % MCV 81.4 L (82.0-92.0) fL MCH 27.3 (27.0-31.0) pg MCHC 33.6 (32.0-36.0) g/dL RDW 14.3 (11.5-14.5) % Plt Count 129 L (150-400) 10^3/uL MPV 8.5 (7.4-10.4) fL Immature Gran % (Auto) 0.5 (0.0-5.0) % Neut % (Auto) 77.7 H (50.0-70.0) % Lymph % (Auto) 11.3 L (20.0-40.0) % [place] % (Auto) 6.5 (2.0-8.0) % Eos % (Auto) 3.8 H (1.0-3.0) % Baso % (Auto) 0.2 (0.0-1.0) % Immature Gran # (Auto) 0.05 (0.00-0.50) 10^3/uL Neut # (Auto) 7.74 H (2.50-7.00) 10^3/uL Lymph # (Auto) 1.13 (1.00-4.00) 10^3/uL [place] # (Auto) 0.65 (0.10-0.80) 10^3/uL Eos # (Auto) 0.38 H (0.10-0.30) 10^3/uL Baso # (Auto) 0.02 (0.00-0.10) 10^3/uL Sodium (136-145) mmol/L Potassium (3.3-5.3) mmol/L Chloride (98-115) mmol/L Carbon Dioxide (21.0-32.0) mmol/L Anion Gap (5-15) mmol/L BUN (6-25) mg/dL Creatinine (0.51-1.17) mg/dL Est Cr Clr Drug Dosing mL/min Estimated GFR (MDRD) mL/min Glucose (75 - 99) mg/dL POC Glucose 168 H 166 H (74-106) mg/dl Lactic Acid (0.4-2.0) mmol/L Calcium (8.7-10.3) mg/dL Total Bilirubin (0.2-1.0) mg/dL AST (15-37) U/L ALT (12-78) U/L Alkaline Phosphatase (46-116) IU/L Troponin I (0.00-0.070) ng/mL Total Protein (6.4-8.2) g/dL Albumin (3.00-4.80) g/dL Amylase (25-125) U/L Lipase (73-393) U/L Specimen Type Urine Color (YELLOW) Urine Appearance (CLEAR) Urine pH (5.0-9.0) Ur Specific [place] (1.005-1.030) Urine Protein (NEGATIVE) mg/dL Urine Glucose (UA) (NEGATIVE) mg/dL Urine Ketones (NEGATIVE) mg/dL Urine Occult Blood (NEGATIVE) Urine Nitrite (NEGATIVE) Urine Bilirubin (NEGATIVE) Urine Urobilinogen (0.2-1.0) E.U./dL Ur Leukocyte Esterase (NEGATIVE) Urine RBC (0-5) /HPF Urine WBC (0-5) /HPF Ur Epithelial Cells /LPF Urine Bacteria (NONE TO FEW) /HPF 11/07/18 11/07/18 Range/Units 07:50 07:50 WBC (5.00-10.00) 10^3/uL RBC (4.50-6.00) 10^6/uL Hgb (13.0-17.0) g/dL Hct (40.0-52.0) % MCV (82.0-92.0) fL MCH (27.0-31.0) pg MCHC (32.0-36.0) g/dL RDW (11.5-14.5) % Plt Count (150-400) 10^3/uL MPV (7.4-10.4) fL Immature Gran % (Auto) (0.0-5.0) % Neut % (Auto) (50.0-70.0) % Lymph % (Auto) (20.0-40.0) % [place] % (Auto) (2.0-8.0) % Eos % (Auto) (1.0-3.0) % Baso % (Auto) (0.0-1.0) % Immature Gran # (Auto) (0.00-0.50) 10^3/uL Neut # (Auto) (2.50-7.00) 10^3/uL Lymph # (Auto) (1.00-4.00) 10^3/uL [place] # (Auto) (0.10-0.80) 10^3/uL Eos # (Auto) (0.10-0.30) 10^3/uL Baso # (Auto) (0.00-0.10) 10^3/uL Sodium 140 (136-145) mmol/L Potassium 4.4 (3.3-5.3) mmol/L Chloride 109 (98-115) mmol/L Carbon Dioxide 19.8 L (21.0-32.0) mmol/L Anion Gap 15.6 H (5-15) mmol/L BUN 19 (6-25) mg/dL Creatinine 0.73 (0.51-1.17) mg/dL Est Cr Clr Drug Dosing 97.60 mL/min Estimated GFR (MDRD) > 60 mL/min Glucose 179 H (75 - 99) mg/dL POC Glucose (74-106) mg/dl Lactic Acid 1.5 (0.4-2.0) mmol/L Calcium 8.6 L (8.7-10.3) mg/dL Total Bilirubin 0.8 (0.2-1.0) mg/dL AST 34 (15-37) U/L ALT 77 (12-78) U/L Alkaline Phosphatase 118 H (46-116) IU/L Troponin I (0.00-0.070) ng/mL Total Protein 8.2 (6.4-8.2) g/dL Albumin 2.72 L (3.00-4.80) g/dL Amylase (25-125) U/L Lipase (73-393) U/L Specimen Type Urine Color (YELLOW) Urine Appearance (CLEAR) Urine pH (5.0-9.0) Ur Specific [place] (1.005-1.030) Urine Protein (NEGATIVE) mg/dL Urine Glucose (UA) (NEGATIVE) mg/dL Urine Ketones (NEGATIVE) mg/dL Urine Occult Blood (NEGATIVE) Urine Nitrite (NEGATIVE) Urine Bilirubin (NEGATIVE) Urine Urobilinogen (0.2-1.0) E.U./dL Ur Leukocyte Esterase (NEGATIVE) Urine RBC (0-5) /HPF Urine WBC (0-5) /HPF Ur Epithelial Cells /LPF Urine Bacteria (NONE TO FEW) /HPF Med Orders - Current: Current Medications Acetaminophen (Tylenol) 650 mg PO Q6H PRN PRN Reason: analgesia/fever Al Hydroxide/Mg Hydroxide (Mag-Al Susp) 30 ml PO Q4H PRN PRN Reason: Indigestion Albuterol/Ipratropium (Duoneb 3.0-0.5 Mg/3 Ml) 3 ml NEB Q4HRRT PRN PRN Reason: wheezing, cough Aspirin (Aspirin) 81 mg PO DAILY [facility] Last Admin: 11/07/18 08:32 Dose: 81 mg Atorvastatin Calcium (Lipitor) 20 mg PO DAILY [facility] Last Admin: 11/07/18 08:33 Dose: 20 mg Bupropion HCl (Wellbutrin Xl) 300 mg PO DAILY [facility] Last Admin: 11/07/18 08:33 Dose: 300 mg Carvedilol (Coreg) 6.25 mg PO BID [facility] Enoxaparin Sodium (Lovenox) 40 mg SUBCUT Q24H [facility] Finasteride (Proscar) 5 mg PO DAILY [facility] Folic Acid (Folic Acid) 1 mg PO DAILY [facility] Last Admin: 11/07/18 08:32 Dose: 1 mg Gabapentin (Neurontin) 600 mg PO TID [facility] Last Admin: 11/07/18 08:33 Dose: 600 mg Guaifenesin/Phenylephrine HCl (Robitussin Dm) 10 ml PO Q4H PRN PRN Reason: Cough Last Admin: 11/07/18 00:24 Dose: 10 ml Piperacillin Sod/Tazobactam (Sod 4.5 gm/ Sodium Chloride) 100 mls @ 200 mls/hr IV Q6H [facility] Last Admin: 11/07/18 05:59 Dose: 200 mls/hr Vancomycin HCl 1.25 gm/ Sodium (Chloride) 250 mls @ 166.667 mls/hr IV Q12H [facility] Last Admin: 11/07/18 07:58 Dose: 166.667 mls/hr Insulin Aspart (Novolog) 0 unit SUBCUT WITHMEALSANDBED [facility]; Protocol Last Admin: 11/07/18 07:52 Dose: 3 units Insulin Detemir (Levemir) 60 unit SUBCUT BEDTIME [facility] Last Admin: 11/06/18 22:34 Dose: 60 units Isosorbide Mononitrate (Imdur) 30 mg PO DAILY [facility] Last Admin: 11/07/18 08:32 Dose: 30 mg Lisinopril (Prinivil) 5 mg PO DAILY [facility] Loperamide HCl (Imodium) 2 mg PO Q4H PRN PRN Reason: Diarrhea Magnesium Hydroxide (Milk Of Magnesia) 30 ml PO DAILY PRN PRN Reason: Constipation Melatonin (Melatonin) 6 mg PO BEDTIME [facility] Last Admin: 11/06/18 22:35 Dose: 6 mg Nitroglycerin (Nitrostat) 0.4 mg SL ASDIRECTED PRN PRN Reason: Chest Pain Olanzapine (Zyprexa) 15 mg PO DAILY [facility] Last Admin: 11/07/18 08:35 Dose: 15 mg Omeprazole (Omeprazole) 20 mg PO BIDAC [facility] Last Admin: 11/07/18 07:29 Dose: 20 mg Thiamine HCl (Vitamin B-1) 100 mg PO DAILY [facility] Last Admin: 11/07/18 08:45 Dose: 100 mg Vancomycin HCl (Pharmacy To Dose - Vancomycin) 1 dose .XX ASDIRECTED [facility] Discontinued Medications Sodium Chloride (Normal Saline) 1,000 mls @ 999 mls/hr IV .BOLUS ONE Stop: 11/06/18 15:53 Last Admin: 11/06/18 15:00 Dose: 999 mls/hr Sodium Chloride (Normal Saline) 1,000 mls @ 999 mls/hr IV .BOLUS ONE Stop: 11/06/18 16:54 Last Admin: 11/06/18 16:25 Dose: 999 mls/hr Levofloxacin/Dextrose 500 mg/ (Premix) 100 mls @ 100 mls/hr IV ONETIME ONE Stop: 11/06/18 16:54 Last Admin: 11/06/18 16:03 Dose: 100 mls/hr Sodium Chloride (Normal Saline) 1,000 mls @ 125 mls/hr IV ASDIRECTED [facility] Last Admin: 11/07/18 07:29 Dose: 125 mls/hr Cefepime HCl 2 gm/ Sodium (Chloride) 50 mls @ 100 mls/hr IV Q8HR [facility] Loperamide HCl (Imodium) 2 mg PO ASDIRECTED PRN PRN Reason: Diarrhea Non-Formulary Medication (Insulin Degludec [Tresiba]) 60 unit SQ BEDTIME [facility] Last Admin: 11/06/18 22:44 Dose: Not Given Non-Formulary Medication (Melatonin [Melatonin]) 5 mg PO BEDTIME [facility] Last Admin: 11/06/18 22:44 Dose: Not Given - Exam Physical Findings Comments:: GENERAL: Obese male sitting in bedside chair in no acute distress. HEENT: Normocephalic, atraumatic. Conjunctiva clear. Nares patent without discharge. Mucous membranes moist. NECK: Supple, no masses. CV: Regular rate and rhythm, no murmurs, rubs, or gallops. 2+ radial pulses. PULMONARY: Normal effort, faint rhonchi in bilateral bases, no wheezes or rales. ABDOMEN: Positive bowel sounds, soft, mild tenderness to only deep palpation in the upper mid-abdomen, nondistended. EXTREMITIES: Trace ankle edema R>L, no cyanosis or clubbing. MUSCULOSKELETAL: Moves all extremities well. NEUROLOGICAL: No obvious deficits. DERMATOLOGIC: No rashes or suspicious lesions in exposed areas. Bilateral legs shiny, hairless, and with stasis dermatitis changes. R 3rd toe with superficial ulceration measuring 1 x 1.5cm to tip on top of dark colored digit without surrounding erythema, warmth, or discharge. PSYCHIATRIC: Alert, interactive, appropriate affect, poor insight. - Problem List Review Problem List Initiated/Reviewed/Updated: Yes - My Orders Last 24 Hours: My Active Orders 11/06/18 14:30 CULTURE BLOOD [BC] Stat 11/06/18 17:30 PROCALCITONIN [REF] Routine 11/06/18 18:00 Piperacillin/Tazobactam [Zosyn] 4.5 gm Sodium Chloride 0.9% [Normal Saline] 100 ml IV Q6H 11/06/18 18:41 Blood Culture x2 Reflex Set [OM.PC] Stat 11/06/18 18:45 Pharmacy to Dose - Vancomycin 1 dose .XX ASDIRECTED 11/06/18 19:35 Code Status [Resuscitation Status] Routine 11/06/18 20:00 Vancomycin 1.25 gm Sodium Chloride 0.9% [Normal Saline] 250 ml IV Q12H 11/06/18 20:42 Blood Glucose Check, Bedside [RC] QIDACANDBED Acetaminophen [Tylenol] 650 mg PO Q6H PRN Alum Hydroxide/Mag Hydroxide [Mag-Al Susp] 30 ml PO Q4H PRN Magnesium Hydroxide [Milk of Magnesia] 30 ml PO DAILY PRN Nitroglycerin [Nitrostat] 0.4 mg SL ASDIRECTED PRN 11/06/18 20:51 Height and Weight [RC] 0700 Intake and Output [RC] 0600,1400,2200 Oxygen Therapy [RC] PRN Pulse Oximetry [RC] PRN Up With Assistance [RC] ASDIRECTED Vital Signs [RC] Q8H 11/06/18 21:00 Gabapentin [Neurontin] 600 mg PO TID Insulin Detemir [Levemir] 60 unit SUBCUT BEDTIME 11/06/18 21:45 Omeprazole 20 mg PO BIDAC 11/06/18 21:57 Melatonin 6 mg PO BEDTIME 11/06/18 22:00 Insulin Aspart [NovoLOG] See Protocol SUBCUT WITHMEALSANDBED 11/06/18 23:49 Loperamide [Imodium] 2 mg PO Q4H PRN 11/06/18 Dinner [employer] Diet [DIET] 11/07/18 00:04 Dextromethorphan/guaiFENesin [Robitussin DM] 10 ml PO Q4H PRN 11/07/18 09:00 Albuterol/Ipratropium [DuoNeb 3.0-0.5 MG/3 ML] 3 ml NEB Q4HRRT PRN Aspirin 81 mg PO DAILY Folic Acid 1 mg PO DAILY Isosorbide Mononitrate [Imdur] 30 mg PO DAILY OLANZapine [ZyPREXA] 15 mg PO DAILY Thiamine [Vitamin B-1] 100 mg PO DAILY atorvaSTATin [Lipitor] 20 mg PO DAILY buPROPion [Wellbutrin XL] 300 mg PO DAILY 11/07/18 09:06 RT Aerosol Therapy [RC] ASDIRECTED 11/07/18 12:00 Enoxaparin [Lovenox] 40 mg SUBCUT Q24H 11/07/18 21:00 Carvedilol [Coreg] 6.25 mg PO BID 11/08/18 05:11 CBC WITH AUTO DIFF [HEME] AM COMPREHENSIVE METABOLIC PN,CMP [CHEM] AM 11/08/18 07:30 VANCOMYCIN TROUGH [CHEM] Routine 11/08/18 09:00 Finasteride [Proscar] 5 mg PO DAILY Lisinopril [Prinivil] 5 mg PO DAILY - Plan Plan:: HPI summary: Mr. Carty is a 63yoM resident of [facility] with a history notable for DMT2 with neuropathy and recurrent foot infections, chronic pancreatitis and cirrhosis 2/2 chronic alcoholism now in remission, and recent hospitalizations for sepsis, who was noted at the SNF to need increased assistance with transfers. CBC showed WBC 17 and he was started on cephalexin 500mg TID for possible R 3rd toe infection. He was noted to have persistent hypotension with BP 75/45 on the morning of 11/06/18 and was sent to the [facility] ED for further evaluation. He endorses increased cough productive of yellow-green sputum and shortness of breath with coughing in the past 2 days. ED course: He was noted to be hypotensive with BP 76/43 initially, though with other VS normal, including P 68. He complained of cough, but didn't have an increased work of breathing. There was apparently difficulty with IV access and obtaining labs, so only a CBC, lactic acid, and blood culture x1 were obtained prior to have [facility] [employer] place IV. UA without evidence of infection. CXR showed bibasilar opacifications, thought to be related to edema versus developing infiltrates. He was given 500cc of NS with improvement in BPs to the 80s systolic and levofloxacin 500mg IV. I was called for admission for pneumonia and hypotension. I inquired about patient's foot exam given history of reported worsening 3rd toe wound and being started on cephalexin the day prior for this and was told these had not yet been examined. I declined admission with instructions to perform detailed skin exam and give full 2 liter bolus of NS with subsequent monitoring of BPs and be called back with status update. Following this, I was again called for admission and was informed that his foot didn't look acutely infected and BPs had improved to 90s-100s systolic. I specifically inquired about liver and pancreas exam findings given his history of cirrhosis and pancreatitis and was told by the ED provider that they were normal and there was no concern. He was admitted. Hospital course: Upon evaluation of the patient and work-up just after patient's arrival on the floor, I noted that only serum laboratory studies completed were a CBC and lactic acid. I confirmed with KALA Gustafson of Patient Services, and Adrian Menchaca PA-C and ED provider, that no other labs had been performed. CMP, amylase, lipase, troponin, procalcitonin, and 2nd blood culture were added on to previously collected blood (prior to antibiotic administration), notable for hyponatremia, elevated BUN, transaminitis (AST 63/ALT 92) and otherwise normal. Hypotension improved with IVF and without tachycardia or lactic acidosis, but overall work-up suggestive of dehydration and mild sepsis related to early pneumonia. Subsequent labs with resolved hyponatremia, normal BUN, and normal transaminases. Evaluation of foot ulcer appears stable and without evidence of infection. Hospitalization problems and plan: # Sepsis, resolved # Hypotension, resolved # Possible bibasilar pneumonia # Mid upper abdominal pain # Right 3rd toe wound, chronic - CBC and CMP in AM - Await procalcitonin and blood culture results - Discontinue NS - Zosyn and vancomycin per pharmacy dosing for possible pneumonia given HCAP status and recent hospitalization - DuoNeb q4h prn - Restart BP medications, as below - Monitor I/O Chronic, stable conditions: # Lung nodule: Followed by lung nodule clinic. # CAD / HTN: Restart carvedilol 6.25mg BID and lisinopril 5mg. Continue isosorbide, nitro prn, ASA 81mg. # Cirrhosis # History of chronic pancreatitis #DMT2 with neuropathy: Hold metformin 1000mg BID while inpatient. Decrease long acting insulin (Tresiba as outpatient) from 80 to 60un while inpatient for now. Hold scheduledNovoLog 10mg TID and instead use high dose ISS. Continue semaglutide weekly. Continue gabapentin 600mg TID. # HLD: Continue atorvastatin 20mg. # GERD: Continue omeprazole 20mg. # BPH: Restart finasteride 5mg. # Pain: Continue acetaminophen prn <2g daily. # History alcohol abuse: Continue folic acid, thiamine.Sober since admission to SNF. Has a history of obtaining alcohol from outside sources through multiple means. #Anxiety / behavioral disturbance: Continue olanzapine 15mg, bupropion 300mg. # Insomnia: Continue melatonin. Hospitalization details: # FEN: No IVF. Electrolytes normal. ADA diet. # PPX: Enoxaparin for DVT ppx. # Code status: FULL. # Emergency contact: Guardian agency, updated by [facility]/nursing staff. # Disposition: Continue inpatient status. Anticipate discharge back to [facility] SNF when clinically improved.
[2018-11-07] MEDS: Enoxaparin 40 MG/0.4 ML Syringe SUBCUT SCH (12:02)
[2018-11-07] MEDS ORDERED: OZEMPIC 2 MG/1.5 ML SUBCUT SCH (12:45)
[2018-11-07] MEDS: Melatonin 3 MG Tab PO SCH (20:55)
[2018-11-07] MEDS: Carvedilol 6.25 MG Tab PO SCH (20:55)
[2018-11-07] MEDS: Insulin Detemir 100 Units/ML 3 ML Pen SUBCUT SCH (21:00)
[2018-11-08] MEDS: Piperacillin/Tazobactam 4.5 GM in Sodium Chloride 0.9% 100 ML IV SCH ×4 (00:22→18:26)
[2018-11-08] MEDS: Omeprazole 20 MG Cap.CR PO SCH ×2 (07:43→17:51)
[2018-11-08] MEDS: Insulin Aspart 100 Units/ML 3 ML Pen SUBCUT SCH ×4 (07:44→21:49)
[2018-11-08 08:13] LABS: ANION GAP 13.5 mmol/L (5-15); CHLORIDE,CL 109 mmol/L (98-115); SODIUM,NA 141 mmol/L (136-145)
[2018-11-08] MEDS: Carvedilol 6.25 MG Tab PO SCH ×2 (09:03→21:41)
[2018-11-08] MEDS: Lisinopril 5 MG Tab PO SCH (09:03)
[2018-11-08] MEDS: Isosorbide Mononitrate 30 MG Tab.ER PO SCH (09:03)
[2018-11-08] MEDS: buPROPion 150 MG Tab.ER PO SCH (09:04)
[2018-11-08] MEDS: atorvaSTATin 10 MG Tab PO SCH (09:04)
[2018-11-08] MEDS: Folic Acid 1 MG Tab PO SCH (09:04)
[2018-11-08] MEDS: Gabapentin 300 MG Cap PO SCH ×3 (09:04→21:41)
[2018-11-08] MEDS: Aspirin 81 MG Tab.Chew PO SCH (09:04)
[2018-11-08] MEDS: Finasteride 5 MG Tab PO SCH (09:04)
[2018-11-08] MEDS: OLANZapine 5 MG Tab PO SCH (09:08)
[2018-11-08] MEDS: Thiamine 100 MG Tab PO SCH (09:09)
[2018-11-08] MEDS: Vancomycin 1.5 GM in Sodium Chloride 0.9% 500 ML IV SCH ×2 (09:23→21:37)
[2018-11-08] MEDS: Enoxaparin 40 MG/0.4 ML Syringe SUBCUT SCH (11:26)
--- NOTE | 2018-11-08 11:43 | PCM.PN ---
- General Info Date of Service: 11/08/18 Subjective Update: Mr. Carty reports feeling ongoing improvement this morning in relation to admission. Now with minimal cough. Denies chest pain. Endorses some mild intermittent upper abdominal pain, at baseline. Toe without concerns. No new wounds. No new concerns. Tolerating diet without problem. - Patient Data Vitals - Most Recent: Last Vital Signs Temp 36.3 C 11/08/18 06:42 Pulse 68 11/08/18 09:03 Resp 16 11/08/18 06:42 BP 147/92 H 11/08/18 09:03 Pulse Ox 94 L 11/08/18 06:42 Weight - Most Recent: 105.857 kg I&O - Last 24 Hours: Intake & Output 11/07/18 11/08/18 11/08/18 22:59 06:59 14:59 Intake Total 445 642 560 Output Total 500 975 Balance -55 -934 560 Lab Results Last 24 Hours: Laboratory Results - last 24 hr 11/06/18 11/07/18 11/07/18 Range/Units 17:30 11:57 17:44 WBC (5.00-10.00) 10^3/uL RBC (4.50-6.00) 10^6/uL Hgb (13.0-17.0) g/dL Hct (40.0-52.0) % MCV (82.0-92.0) fL MCH (27.0-31.0) pg MCHC (32.0-36.0) g/dL RDW (11.5-14.5) % Plt Count (150-400) 10^3/uL MPV (7.4-10.4) fL Immature Gran % (Auto) (0.0-5.0) % Neut % (Auto) (50.0-70.0) % Lymph % (Auto) (20.0-40.0) % Bee % (Auto) (2.0-8.0) % Eos % (Auto) (1.0-3.0) % Baso % (Auto) (0.0-1.0) % Immature Gran # (Auto) (0.00-0.50) 10^3/uL Neut # (Auto) (2.50-7.00) 10^3/uL Lymph # (Auto) (1.00-4.00) 10^3/uL Bee # (Auto) (0.10-0.80) 10^3/uL Eos # (Auto) (0.10-0.30) 10^3/uL Baso # (Auto) (0.00-0.10) 10^3/uL Sodium (136-145) mmol/L Potassium (3.3-5.3) mmol/L Chloride (98-115) mmol/L Carbon Dioxide (21.0-32.0) mmol/L Anion Gap (5-15) mmol/L BUN (6-25) mg/dL Creatinine (0.51-1.17) mg/dL Est Cr Clr Drug Dosing mL/min Estimated GFR (MDRD) mL/min Glucose (75 - 99) mg/dL POC Glucose 250 H 120 H (74-106) mg/dl Calcium (8.7-10.3) mg/dL Total Bilirubin (0.2-1.0) mg/dL AST (15-37) U/L ALT (12-78) U/L Alkaline Phosphatase (46-116) IU/L Total Protein (6.4-8.2) g/dL Albumin (3.00-4.80) g/dL Procalcitonin 29.20 H (<0.10) ng/mL Vancomycin Trough (10-20) ug/mL 11/08/18 11/08/18 11/08/18 Range/Units 07:25 07:39 07:39 WBC 7.04 (5.00-10.00) 10^3/uL RBC 3.54 L (4.50-6.00) 10^6/uL Hgb 9.6 L (13.0-17.0) g/dL Hct 29.0 L (40.0-52.0) % MCV 81.9 L (82.0-92.0) fL MCH 27.1 (27.0-31.0) pg MCHC 33.1 (32.0-36.0) g/dL RDW 14.4 (11.5-14.5) % Plt Count 155 (150-400) 10^3/uL MPV 9.3 (7.4-10.4) fL Immature Gran % (Auto) 0.6 (0.0-5.0) % Neut % (Auto) 69.3 (50.0-70.0) % Lymph % (Auto) 15.3 L (20.0-40.0) % Bee % (Auto) 7.2 (2.0-8.0) % Eos % (Auto) 7.5 H (1.0-3.0) % Baso % (Auto) 0.1 (0.0-1.0) % Immature Gran # (Auto) 0.04 (0.00-0.50) 10^3/uL Neut # (Auto) 4.87 (2.50-7.00) 10^3/uL Lymph # (Auto) 1.08 (1.00-4.00) 10^3/uL Bee # (Auto) 0.51 (0.10-0.80) 10^3/uL Eos # (Auto) 0.53 H (0.10-0.30) 10^3/uL Baso # (Auto) 0.01 (0.00-0.10) 10^3/uL Sodium 141 (136-145) mmol/L Potassium 4.1 (3.3-5.3) mmol/L Chloride 109 (98-115) mmol/L Carbon Dioxide 22.6 (21.0-32.0) mmol/L Anion Gap 13.5 (5-15) mmol/L BUN 13 (6-25) mg/dL Creatinine 0.73 (0.51-1.17) mg/dL Est Cr Clr Drug Dosing 97.60 mL/min Estimated GFR (MDRD) > 60 mL/min Glucose 143 H (75 - 99) mg/dL POC Glucose 149 H (74-106) mg/dl Calcium 8.7 (8.7-10.3) mg/dL Total Bilirubin 0.5 (0.2-1.0) mg/dL AST 23 (15-37) U/L ALT 55 (12-78) U/L Alkaline Phosphatase 93 (46-116) IU/L Total Protein 7.7 (6.4-8.2) g/dL Albumin 2.52 L (3.00-4.80) g/dL Procalcitonin (<0.10) ng/mL Vancomycin Trough 13.9 (10-20) ug/mL Severino Results Last 24 Hours: Microbiology 11/06/18 14:30 Aerobic Blood Culture - Preliminary Blood - Venous NO GROWTH AFTER 1 DAY Anaerobic Blood Culture - Preliminary NO GROWTH AFTER 1 DAY 11/06/18 14:10 Aerobic Blood Culture - Preliminary Blood NO GROWTH AFTER 1 DAY Anaerobic Blood Culture - Preliminary NO GROWTH AFTER 1 DAY Med Orders - Current: Current Medications Acetaminophen (Tylenol) 650 mg PO Q6H PRN PRN Reason: analgesia/fever Al Hydroxide/Mg Hydroxide (Mag-Al Susp) 30 ml PO Q4H PRN PRN Reason: Indigestion Albuterol/Ipratropium (Duoneb 3.0-0.5 Mg/3 Ml) 3 ml NEB Q4HRRT PRN PRN Reason: wheezing, cough Aspirin (Aspirin) 81 mg PO DAILY [facility] Last Admin: 11/08/18 09:04 Dose: 81 mg Atorvastatin Calcium (Lipitor) 20 mg PO DAILY [facility] Last Admin: 11/08/18 09:04 Dose: 20 mg Bupropion HCl (Wellbutrin Xl) 300 mg PO DAILY [facility] Last Admin: 11/08/18 09:04 Dose: 300 mg Carvedilol (Coreg) 6.25 mg PO BID [facility] Last Admin: 11/08/18 09:03 Dose: 6.25 mg Enoxaparin Sodium (Lovenox) 40 mg SUBCUT Q24H [facility] Last Admin: 11/08/18 11:26 Dose: 40 mg Finasteride (Proscar) 5 mg PO DAILY [facility] Last Admin: 11/08/18 09:04 Dose: 5 mg Folic Acid (Folic Acid) 1 mg PO DAILY [facility] Last Admin: 11/08/18 09:04 Dose: 1 mg Gabapentin (Neurontin) 600 mg PO TID [facility] Last Admin: 11/08/18 09:04 Dose: 600 mg Guaifenesin/Phenylephrine HCl (Robitussin Dm) 10 ml PO Q4H PRN PRN Reason: Cough Last Admin: 11/07/18 00:24 Dose: 10 ml Piperacillin Sod/Tazobactam (Sod 4.5 gm/ Sodium Chloride) 100 mls @ 200 mls/hr IV Q6H [facility] Last Admin: 11/08/18 11:26 Dose: 200 mls/hr Vancomycin HCl 1.5 gm/ Sodium (Chloride) 500 mls @ 333.333 mls/hr IV Q12H [facility] Last Admin: 11/08/18 09:23 Dose: 333.333 mls/hr Insulin Aspart (Novolog) 0 unit SUBCUT WITHMEALSANDBED [facility]; Protocol Last Admin: 11/08/18 07:44 Dose: Not Given Insulin Detemir (Levemir) 60 unit SUBCUT BEDTIME [facility] Last Admin: 11/07/18 21:00 Dose: 60 units Isosorbide Mononitrate (Imdur) 30 mg PO DAILY [facility] Last Admin: 11/08/18 09:03 Dose: 30 mg Lisinopril (Prinivil) 5 mg PO DAILY [facility] Last Admin: 11/08/18 09:03 Dose: 5 mg Loperamide HCl (Imodium) 2 mg PO Q4H PRN PRN Reason: Diarrhea Magnesium Hydroxide (Milk Of Magnesia) 30 ml PO DAILY PRN PRN Reason: Constipation Melatonin (Melatonin) 6 mg PO BEDTIME [facility] Last Admin: 11/07/18 20:55 Dose: 6 mg Nitroglycerin (Nitrostat) 0.4 mg SL ASDIRECTED PRN PRN Reason: Chest Pain Olanzapine (Zyprexa) 15 mg PO DAILY [facility] Last Admin: 11/08/18 09:08 Dose: 15 mg Omeprazole (Omeprazole) 20 mg PO BIDAC [facility] Last Admin: 11/08/18 07:43 Dose: 20 mg Ozempic (Semaglutide ) Pen 2mg/1.5ml - Ptom 1 each SUBCUT ONETIME [facility] Last Admin: 11/07/18 13:16 Dose: 1 each Thiamine HCl (Vitamin B-1) 100 mg PO DAILY [facility] Last Admin: 11/08/18 09:09 Dose: 100 mg Vancomycin HCl (Pharmacy To Dose - Vancomycin) 1 dose .XX ASDIRECTED [facility] Discontinued Medications Sodium Chloride (Normal Saline) 1,000 mls @ 999 mls/hr IV .BOLUS ONE Stop: 11/06/18 15:53 Last Admin: 11/06/18 15:00 Dose: 999 mls/hr Sodium Chloride (Normal Saline) 1,000 mls @ 999 mls/hr IV .BOLUS ONE Stop: 11/06/18 16:54 Last Admin: 11/06/18 16:25 Dose: 999 mls/hr Levofloxacin/Dextrose 500 mg/ (Premix) 100 mls @ 100 mls/hr IV ONETIME ONE Stop: 11/06/18 16:54 Last Admin: 11/06/18 16:03 Dose: 100 mls/hr Sodium Chloride (Normal Saline) 1,000 mls @ 125 mls/hr IV ASDIRECTED [facility] Last Admin: 11/07/18 07:29 Dose: 125 mls/hr Cefepime HCl 2 gm/ Sodium (Chloride) 50 mls @ 100 mls/hr IV Q8HR [facility] Vancomycin HCl 1.25 gm/ Sodium (Chloride) 250 mls @ 166.667 mls/hr IV Q12H [facility] Last Admin: 11/08/18 08:50 Dose: Not Given Loperamide HCl (Imodium) 2 mg PO ASDIRECTED PRN PRN Reason: Diarrhea Non-Formulary Medication (Insulin Degludec [Tresiba]) 60 unit SQ BEDTIME [facility] Last Admin: 11/06/18 22:44 Dose: Not Given Non-Formulary Medication (Melatonin [Melatonin]) 5 mg PO BEDTIME [facility] Last Admin: 11/06/18 22:44 Dose: Not Given - Exam Physical Findings Comments:: GENERAL: Obese male sitting in bedside chair in no acute distress. HEENT: Normocephalic, atraumatic. Conjunctiva clear. Nares patent without discharge. Mucous membranes moist. NECK: Supple, no masses. CV: Regular rate and rhythm, no murmurs, rubs, or gallops. 2+ radial pulses. PULMONARY: Normal effort, faint rhonchi in bilateral bases, no wheezes or rales. ABDOMEN: Positive bowel sounds, soft, mild tenderness to only deep palpation in the upper mid-abdomen, nondistended. EXTREMITIES: Trace ankle edema R>L, no cyanosis or clubbing. MUSCULOSKELETAL: Moves all extremities well. NEUROLOGICAL: No obvious deficits. DERMATOLOGIC: No rashes or suspicious lesions in exposed areas. Bilateral legs shiny, hairless, and with stasis dermatitis changes. R 3rd toe with superficial ulceration measuring 1 x 1.5cm to tip on top of dark colored digit without surrounding erythema, warmth, or discharge. PSYCHIATRIC: Alert, interactive, appropriate affect, poor insight. - Problem List Review Problem List Initiated/Reviewed/Updated: Yes - My Orders Last 24 Hours: My Active Orders 11/07/18 12:00 Enoxaparin [Lovenox] 40 mg SUBCUT Q24H 11/07/18 12:45 Patient's Own Medication [Ptom] 1 each SUBCUT ONETIME 11/07/18 17:00 MISCELLANEOUS CULT [MREF] Routine 11/07/18 21:00 Carvedilol [Coreg] 6.25 mg PO BID 11/08/18 09:00 Finasteride [Proscar] 5 mg PO DAILY Lisinopril [Prinivil] 5 mg PO DAILY Vancomycin 1.5 gm Sodium Chloride 0.9% [Normal Saline] 500 ml IV Q12H - Plan Plan:: HPI summary: Mr. Carty is a 63yoM resident of [facility] with a history notable for DMT2 with neuropathy and recurrent foot infections, chronic pancreatitis and cirrhosis 2/2 chronic alcoholism now in remission, and recent hospitalizations for sepsis, who was noted at the SNF to need increased assistance with transfers. CBC showed WBC 17 and he was started on cephalexin 500mg TID for possible R 3rd toe infection. He was noted to have persistent hypotension with BP 75/45 on the morning of 11/06/18 and was sent to the [facility] ED for further evaluation. He endorses increased cough productive of yellow-green sputum and shortness of breath with coughing in the past 2 days. ED course: He was noted to be hypotensive with BP 76/43 initially, though with other VS normal, including P 68. He complained of cough, but didn't have an increased work of breathing. There was apparently difficulty with IV access and obtaining labs, so only a CBC, lactic acid, and blood culture x1 were obtained prior to have [employer] place IV. UA without evidence of infection. CXR showed bibasilar opacifications, thought to be related to edema versus developing infiltrates. He was given 500cc of NS with improvement in BPs to the 80s systolic and levofloxacin 500mg IV. I was called for admission for pneumonia and hypotension. I inquired about patient's foot exam given history of reported worsening 3rd toe wound and being started on cephalexin the day prior for this and was told these had not yet been examined. I declined admission with instructions to perform detailed skin exam and give full 2 liter bolus of NS with subsequent monitoring of BPs and be called back with status update. Following this, I was again called for admission and was informed that his foot didn't look acutely infected and BPs had improved to 90s-100s systolic. I specifically inquired about liver and pancreas exam findings given his history of cirrhosis and pancreatitis and was told by the ED provider that they were normal and there was no concern. He was admitted. Hospital course: Upon evaluation of the patient and work-up just after patient's arrival on the floor, I noted that only serum laboratory studies completed were a CBC and lactic acid. I confirmed with KALA Gustafson of Patient Services, and Adrian Menchaca PA-C and ED provider, that no other labs had been performed. CMP, amylase, lipase, troponin, procalcitonin, and 2nd blood culture were added on to previously collected blood (prior to antibiotic administration), notable for hyponatremia, elevated BUN, transaminitis (AST 63/ALT 92) and otherwise normal. Hypotension improved with IVF and without tachycardia or lactic acidosis, but overall work-up suggestive of dehydration and mild sepsis related to early pneumonia, which is also supported by admission procalcitonin 29 (result received 11/08). Subsequent labs with resolved hyponatremia, normal BUN, and normal transaminases. Evaluation of foot ulcer appears stable and without evidence of infection. BPs have remained normal without IVF and restarting antihypertensive regimen. Blood cultures are no growth x 1 day. Hospitalization problems and plan: # Sepsis, resolved # Hypotension, resolved # Bibasilar pneumonia, unknown organism # Mid upper abdominal pain, chronic # Right 3rd toe wound, chronic - Await further blood culture results - Continue Zosyn and vancomycin per pharmacy dosing for a total of 48 hours for HCAP status and recent hospitalization, with plan to de-escalate to oral regimen if blood cultures negative x 48 hours and no concerns arise - DuoNeb q4h prn - Monitor I/O Chronic, stable conditions: # Lung nodule: Followed by lung nodule clinic. # CAD / HTN: Continue carvedilol 6.25mg BID, lisinopril 5mg, isosorbide, nitro prn, ASA 81mg. # Cirrhosis # History of chronic pancreatitis #DMT2 with neuropathy: Last A1c 7.4% 3mos ago; obtain repeat. Hold metformin 1000mg BID while inpatient. Continue long acting insulin (Tresiba as outpatient ) at 60un (down for 80un as outpatient). Hold scheduledNovoLog 10mg TID and continue high dose ISS. Continue semaglutide weekly, received as late dose on 04/16. Continue gabapentin 600mg TID. # HLD: Continue atorvastatin 20mg. # GERD: Continue omeprazole 20mg. # BPH: Continue finasteride 5mg. # Pain: Continue acetaminophen prn <2g daily. # History alcohol abuse: Continue folic acid, thiamine.Sober since admission to SNF. Has a history of obtaining alcohol from outside sources through multiple means. #Anxiety / behavioral disturbance: Continue olanzapine 15mg, bupropion 300mg. # Insomnia: Continue melatonin. Hospitalization details: # FEN: No IVF. Electrolytes normal. ADA diet. # PPX: Enoxaparin for DVT ppx. # Code status: FULL. # Emergency contact: Guardian agency, updated by [facility]/nursing staff. # Disposition: Continue inpatient status. Anticipate discharge back to [facility] likely tomorrow following 48 hours of negative blood cultures and switch to oral antibiotic regimen.
[2018-11-08 12:04] LABS: HEMOGLOBIN A1C 6.2 % (4.3-5.7)
[2018-11-08] MEDS: guaiFENesin/Dextromethorphan 100-10 MG/5 ML Soln 5 ML Cup PO PRN (17:51)
[2018-11-08] MEDS: Amoxicillin/Clavulanate K 875-125 MG Tab PO SCH (18:42)
[2018-11-08] MEDS: Melatonin 3 MG Tab PO SCH (21:41)
[2018-11-08] MEDS: Insulin Detemir 100 Units/ML 3 ML Pen SUBCUT SCH (21:49)
[2018-11-09] MEDS: Amoxicillin/Clavulanate K 875-125 MG Tab PO SCH (06:12)
[2018-11-09] MEDS: Omeprazole 20 MG Cap.CR PO SCH (07:32)
[2018-11-09] MEDS: Finasteride 5 MG Tab PO SCH (08:53)
[2018-11-09] MEDS: Gabapentin 300 MG Cap PO SCH (08:53)
[2018-11-09] MEDS: Folic Acid 1 MG Tab PO SCH (08:53)
[2018-11-09] MEDS: buPROPion 150 MG Tab.ER PO SCH (08:53)
[2018-11-09] MEDS: Insulin Aspart 100 Units/ML 3 ML Pen SUBCUT SCH ×2 (08:53→11:57)
[2018-11-09] MEDS: OLANZapine 5 MG Tab PO SCH (08:53)
[2018-11-09] MEDS: atorvaSTATin 10 MG Tab PO SCH (08:53)
[2018-11-09] MEDS: Aspirin 81 MG Tab.Chew PO SCH (08:53)
[2018-11-09] MEDS: Lisinopril 5 MG Tab PO SCH (08:54)
[2018-11-09] MEDS: Thiamine 100 MG Tab PO SCH (08:54)
[2018-11-09] MEDS: Isosorbide Mononitrate 30 MG Tab.ER PO SCH (08:54)
[2018-11-09] MEDS: Carvedilol 6.25 MG Tab PO SCH (08:54)
[2018-11-09 08:55] VITALS: BP 152/85; PULSE 75
--- NOTE | 2018-11-09 10:14 | PCM.DCSUM1 ---
Discharge Summary - Hospital Course Free Text/Narrative:: Date of admission: 11/06/18 Date of discharge: 11/09/18 Admission diagnoses: # Hypotension # Bibasilar pneumonia # Mid upper abdominal pain, chronic # Right 3rd toe wound, chronic # Lung nodule # CAD # HTN # Cirrhosis # History of chronic pancreatitis #DMT2 with neuropathy # HLD # GERD # BPH # Pain # History alcohol abuse #Anxiety # Behavioral disturbance # Insomnia Discharge diagnoses: # Sepsis, resolved # Hypotension, resolved # Bibasilar pneumonia, unknown organism # Mid upper abdominal pain, chronic # Right 3rd toe wound, chronic # Lung nodule # CAD # HTN # Cirrhosis # History of chronic pancreatitis #DMT2 with neuropathy # HLD # GERD # BPH # Pain # History alcohol abuse #Anxiety # Behavioral disturbance # Insomnia Hospital course: Mr. Carty is a 63yoM resident of [facility] with a history notable for DMT2 with neuropathy and recurrent foot infections, chronic pancreatitis and cirrhosis 2/2 chronic alcoholism now in remission, and recent hospitalizations for sepsis, who was noted at the SNF to need increased assistance with transfers. CBC showed WBC 17 and he was started on cephalexin 500mg TID for possible R 3rd toe infection. He was noted to have persistent hypotension with BP 75/45 on the morning of 11/06/18 and was sent to the [facility] ED for further evaluation. He endorses increased cough productive of yellow-green sputum and shortness of breath with coughing in the past 2 days. In the ED, he was noted to be hypotensive with BP 76/43 initially, though with other VS normal, including P 68. He complained of cough, but didn't have an increased work of breathing. There was apparently difficulty with IV access and obtaining labs, so only a CBC, lactic acid, and blood culture x1 were obtained prior to have [employer] place IV. UA without evidence of infection. CXR showed bibasilar opacifications, thought to be related to edema versus developing infiltrates. He was given 500cc of NS with improvement in BPs to the 80s systolic and levofloxacin 500mg IV. I was called for admission for pneumonia and hypotension. I inquired about patient's foot exam given history of reported worsening 3rd toe wound and being started on cephalexin the day prior for this and was told these had not yet been examined. I declined admission with instructions to perform detailed skin exam and give full 2 liter bolus of NS with subsequent monitoring of BPs and be called back with status update. Following this, I was again called for admission and was informed that his foot didn't look acutely infected and BPs had improved to 90s-100s systolic. I specifically inquired about liver and pancreas exam findings given his history of cirrhosis and pancreatitis and was told by the ED provider that they were normal and there was no concern. He was admitted. Upon evaluation of the patient and work-up just after patient's arrival on the floor, I noted that only serum laboratory studies completed were a CBC and lactic acid. I confirmed with KALA Gustafson of Patient Services, and Adrian Menchaca PA-C and ED provider, that no other labs had been performed. CMP, amylase, lipase, troponin, procalcitonin, and 2nd blood culture were added on to previously collected blood (prior to antibiotic administration), notable for hyponatremia, elevated BUN, transaminitis (AST 63/ALT 92) and otherwise normal. Evaluation of foot ulcer appeared stable and without evidence of infection. Hypotension improved with IVF and without tachycardia or lactic acidosis, but overall work-up suggestive of dehydration and mild sepsis related to early pneumonia, which is also supported by admission procalcitonin 29 (result received 11/08). He was started empirically on Zosyn and vancomycin, which was de -escalated to Augmentin prior to discharge. Subsequent labs with resolved hyponatremia, normal BUN, and normal transaminases. BPs remained without any recurrent hypotension even after stopping IVF and restarting antihypertensive regimen. Blood cultures with no growth x 2 days. He never required any oxygen, pulmonary treatments, or other interventions. No complications arose during his stay. Patient was reluctant to discharge back to [facility], stating that he wished to stay in the hospital for no specific reason, but there was no clinical indication to keep inpatient. Of note regarding his chronic conditions, the last month of his blood sugars were reviewed noting intermittent low-end blood sugars down to the 60s-70s at variable times of the day. Repeat A1c was obtained and 6.2%. While inpatient, his metformin was held, long acting insulin (Tresiba as outpatient; Levemir as inpatient) was decreased from 80 to 60 units, and NovoLog changed from 10un TID to high dose ISS. His semaglutide was continued, for which he was a few days overdue for his injection. Discharge and follow-up recommendations: - Discharge back to [facility] - Medication changes at discharge: - Start Augmentin 875mg BID x 5 days to complete 7 day course of antibiotic for pneumonia - Decrease Tresiba to 60 units - Decrease NovoLog to 5 units TID - Continue on prior schedule of semaglutide dosing (late dose was given within 5 days, so can continue without skipping dose) - Decrease prn Tylenol dosing to 500mg q6h prn given hx of cirrhosis - Continue 4 times daily BG and have log reviewed on rounds this week - Take BP daily x 1 week and send log for review - Follow-up on next rounds - Discharge Data Discharge Date: 11/09/18 Discharge Disposition: DC/Tfer to [facility] 03 Condition: Good - Patient Instructions Diet: Diabetic Diet Activity: As Tolerated Notify Provider of: Fever (T >101), Increased Pain - Discharge Plan *PRESCRIPTION DRUG MONITORING PROGRAM REVIEWED*: Not Applicable *COPY OF PRESCRIPTION DRUG MONITORING REPORT IN PATIENT ANDREI: Not Applicable Prescriptions/Med Rec: Amoxicillin/Clavulanate K [Augmentin 875-125 MG] 1 tab PO Q12H 5 Days #10 tablet Home Medications: Home Meds metFORMIN [Glucophage] 1 tab PO BID 08/25/15 [History] Aspirin 81 mg PO DAILY 03/14/17 [History] Folic Acid 1 mg PO DAILY 03/15/17 [History] atorvaSTATin [Lipitor] 20 mg PO DAILY 03/15/17 [History] Nitroglycerin 0.4 mg SL ASDIRECTED PRN 07/31/17 [History] Carvedilol 6.25 mg PO BID 07/24/18 [History] Finasteride 5 mg PO DAILY 07/24/18 [History] Gabapentin [Neurontin] 600 mg PO TID 07/24/18 [History] Lisinopril 5 mg PO DAILY 07/24/18 [History] Melatonin 5 mg PO BEDTIME 07/24/18 [History] Omeprazole 20 mg PO BID 07/24/18 [History] Acetaminophen [Tylenol] 650 mg PO Q4H PRN tablet 07/26/18 [Rx] Alum Hydroxide/Mag Hydroxide [Mag-Al] 30 ml PO Q4H PRN cup 07/26/18 [Rx] Isosorbide Mononitrate [Imdur] 30 mg PO DAILY 07/26/18 [History] Albuterol [Proventil HFA] 1 puff INH QID PRN 11/06/18 [History] Loperamide [Imodium] 2 mg PO ASDIRECTED PRN 11/06/18 [History] Magnesium Hydroxide [Milk of Magnesia] 30 ml PO DAILY PRN 11/06/18 [History] OLANZapine [Olanzapine] 15 mg PO DAILY 11/06/18 [History] Thiamine HCl [B-1] 100 mg PO DAILY 11/06/18 [History] buPROPion HCl [Wellbutrin Xl] 300 mg PO DAILY 11/06/18 [History] Non-Formulary Medication [NF Drug] 0.5 mg SUBCUT WEEKLY 11/07/18 [History] Amoxicillin/Clavulanate K [Augmentin 875-125 MG] 1 tab PO Q12H 5 Days #10 tablet 11/09/18 [Rx] Insulin Aspart [NovoLOG] 5 unit SQ TID #0 11/09/18 [Rx] Insulin Degludec [Tresiba] 60 unit SQ BEDTIME #0 11/09/18 [Rx] Referrals: Sowmya Lassiter MD [Physician] - (next [facility] rounds) - Discharge Summary/Plan Comment DC Time >30 min.: Yes - General Info Subjective Update: Mr. Carty reports no specific concerns this morning, but states that he wishes to stay a few more days in the hospital. When inquiring why, he states that he just feels he could get more improvement and wants to get some rest. He endorses not sleeping well here since admission, but feels he would sleep well here tonight. Tolerating diet well. Much improved transfer/ambulation status from 2 person/lift assist on admission to now using a walker and standby assist. Nursing reports no concerns. He has not been noted to be coughing. He has endorsed no concerns of pain or other complaints in the past 24 hours. - Patient Data Vitals - Most Recent: Last Vital Signs Temp 36.4 C 11/09/18 06:28 Pulse 75 11/09/18 08:54 Resp 20 11/09/18 06:28 BP 152/85 H 11/09/18 08:54 Pulse Ox 97 11/09/18 06:28 Weight - Most Recent: 105.052 kg I&O - Last 24 hours: Intake & Output 11/08/18 11/09/18 11/09/18 22:59 06:59 14:59 Intake Total 1620 400 Output Total 600 1350 Balance 1020 -950 Lab Results - Last 24 hrs: Laboratory Results - last 24 hr 11/08/18 11/08/18 11/09/18 Range/Units 07:39 17:54 07:36 POC Glucose 225 H 85 (74-106) mg/dl Hemoglobin A1c 6.2 H (4.3-5.7) % SMITHA Results - Last 24 hrs: Microbiology 11/06/18 14:30 Aerobic Blood Culture - Preliminary Blood - Venous NO GROWTH AFTER 2 DAYS Anaerobic Blood Culture - Preliminary NO GROWTH AFTER 2 DAYS 11/06/18 14:10 Aerobic Blood Culture - Preliminary Blood NO GROWTH AFTER 2 DAYS Anaerobic Blood Culture - Preliminary NO GROWTH AFTER 2 DAYS Med Orders - Current: Current Medications Acetaminophen (Tylenol) 650 mg PO Q6H PRN PRN Reason: analgesia/fever Last Admin: 11/09/18 01:05 Dose: 650 mg Al Hydroxide/Mg Hydroxide (Mag-Al Susp) 30 ml PO Q4H PRN PRN Reason: Indigestion Albuterol/Ipratropium (Duoneb 3.0-0.5 Mg/3 Ml) 3 ml NEB Q4HRRT PRN PRN Reason: wheezing, cough Amoxicillin/Clavulanate Potassium (Augmentin 875 Mg/125 Mg) 1 tab PO Q12H [facility] Last Admin: 11/09/18 06:12 Dose: 1 tab Aspirin (Aspirin) 81 mg PO DAILY [facility] Last Admin: 11/09/18 08:53 Dose: 81 mg Atorvastatin Calcium (Lipitor) 20 mg PO DAILY [facility] Last Admin: 11/09/18 08:53 Dose: 20 mg Bupropion HCl (Wellbutrin Xl) 300 mg PO DAILY [facility] Last Admin: 11/09/18 08:53 Dose: 300 mg Carvedilol (Coreg) 6.25 mg PO BID [facility] Last Admin: 11/09/18 08:54 Dose: 6.25 mg Enoxaparin Sodium (Lovenox) 40 mg SUBCUT Q24H [facility] Last Admin: 11/08/18 11:26 Dose: 40 mg Finasteride (Proscar) 5 mg PO DAILY [facility] Last Admin: 11/09/18 08:53 Dose: 5 mg Folic Acid (Folic Acid) 1 mg PO DAILY [facility] Last Admin: 11/09/18 08:53 Dose: 1 mg Gabapentin (Neurontin) 600 mg PO TID [facility] Last Admin: 11/09/18 08:53 Dose: 600 mg Guaifenesin/Phenylephrine HCl (Robitussin Dm) 10 ml PO Q4H PRN PRN Reason: Cough Last Admin: 11/08/18 17:51 Dose: 10 ml Insulin Aspart (Novolog) 0 unit SUBCUT WITHMEALSANDBED [facility]; Protocol Last Admin: 11/09/18 08:53 Dose: Not Given Insulin Detemir (Levemir) 60 unit SUBCUT BEDTIME [facility] Last Admin: 11/08/18 21:49 Dose: 60 units Isosorbide Mononitrate (Imdur) 30 mg PO DAILY [facility] Last Admin: 11/09/18 08:54 Dose: 30 mg Lisinopril (Prinivil) 5 mg PO DAILY [facility] Last Admin: 11/09/18 08:54 Dose: 5 mg Loperamide HCl (Imodium) 2 mg PO Q4H PRN PRN Reason: Diarrhea Magnesium Hydroxide (Milk Of Magnesia) 30 ml PO DAILY PRN PRN Reason: Constipation Melatonin (Melatonin) 6 mg PO BEDTIME [facility] Last Admin: 11/08/18 21:41 Dose: 6 mg Nitroglycerin (Nitrostat) 0.4 mg SL ASDIRECTED PRN PRN Reason: Chest Pain Olanzapine (Zyprexa) 15 mg PO DAILY [facility] Last Admin: 11/09/18 08:53 Dose: 15 mg Omeprazole (Omeprazole) 20 mg PO BIDAC [facility] Last Admin: 11/09/18 07:32 Dose: 20 mg Ozempic (Semaglutide ) Pen 2mg/1.5ml - Ptom 1 each SUBCUT ONETIME [facility] Last Admin: 11/07/18 13:16 Dose: 1 each Thiamine HCl (Vitamin B-1) 100 mg PO DAILY [facility] Last Admin: 11/09/18 08:54 Dose: 100 mg Vancomycin HCl (Pharmacy To Dose - Vancomycin) 1 dose .XX ASDIRECTED [facility] Discontinued Medications Sodium Chloride (Normal Saline) 1,000 mls @ 999 mls/hr IV .BOLUS ONE Stop: 11/06/18 15:53 Last Admin: 11/06/18 15:00 Dose: 999 mls/hr Sodium Chloride (Normal Saline) 1,000 mls @ 999 mls/hr IV .BOLUS ONE Stop: 11/06/18 16:54 Last Admin: 11/06/18 16:25 Dose: 999 mls/hr Levofloxacin/Dextrose 500 mg/ (Premix) 100 mls @ 100 mls/hr IV ONETIME ONE Stop: 11/06/18 16:54 Last Admin: 11/06/18 16:03 Dose: 100 mls/hr Sodium Chloride (Normal Saline) 1,000 mls @ 125 mls/hr IV ASDIRECTED [facility] Last Admin: 11/07/18 07:29 Dose: 125 mls/hr Cefepime HCl 2 gm/ Sodium (Chloride) 50 mls @ 100 mls/hr IV Q8HR [facility] Piperacillin Sod/Tazobactam (Sod 4.5 gm/ Sodium Chloride) 100 mls @ 200 mls/hr IV Q6H [facility] Stop: 11/08/18 20:00 Last Admin: 11/08/18 18:26 Dose: 200 mls/hr Vancomycin HCl 1.25 gm/ Sodium (Chloride) 250 mls @ 166.667 mls/hr IV Q12H [facility] Last Admin: 11/08/18 08:50 Dose: Not Given Vancomycin HCl 1.5 gm/ Sodium (Chloride) 500 mls @ 333.333 mls/hr IV Q12H [facility] Stop: 11/08/18 22:00 Last Admin: 11/08/18 21:37 Dose: 333.333 mls/hr Loperamide HCl (Imodium) 2 mg PO ASDIRECTED PRN PRN Reason: Diarrhea Non-Formulary Medication (Insulin Degludec [Tresiba]) 60 unit SQ BEDTIME [facility] Last Admin: 11/06/18 22:44 Dose: Not Given Non-Formulary Medication (Melatonin [Melatonin]) 5 mg PO BEDTIME [facility] Last Admin: 11/06/18 22:44 Dose: Not Given - Exam Physical Findings Comments:: GENERAL: Obese male sitting in bedside chair in no acute distress. HEENT: Normocephalic, atraumatic. Conjunctiva clear. Nares patent without discharge. Mucous membranes moist. NECK: Supple, no masses. CV: Regular rate and rhythm, no murmurs, rubs, or gallops. 2+ radial pulses. PULMONARY: Normal effort, clear to auscultation bilaterally, no wheezes or rales. ABDOMEN: Positive bowel sounds, soft, nontender to even deep palpation this morning, nondistended. EXTREMITIES: Trace ankle edema R>L, no cyanosis or clubbing. MUSCULOSKELETAL: Moves all extremities well. NEUROLOGICAL: No obvious deficits. DERMATOLOGIC: No rashes or suspicious lesions in exposed areas. Bilateral legs shiny, hairless, and with stasis dermatitis changes. R 3rd toe with superficial ulceration measuring 1 x 1.5cm to tip on top of dark colored digit without surrounding erythema, warmth, or discharge, and with noted clinical improvement since admission. PSYCHIATRIC: Alert, interactive, flattened affect, poor insight.
[2018-11-09] MEDS ORDERED: Amoxicillin/Clavulanate K 875-125 MG Tab PO ONE (10:34)
[2018-11-09] MEDS: Enoxaparin 40 MG/0.4 ML Syringe SUBCUT SCH (11:04)
== END 2018-11-09 12:58 | DRG 871 ==
LOC: KA.ED 13:22 → KA.MS 17:55
PROVIDERS: ADMIT Physician Assistant Surgical; ATTEND Family Medicine
DX: A41.9 Sepsis, unspecified organism (principal); J18.9 Pneumonia, unspecified organism; E11.40 Type 2 diabetes mellitus with diabetic neuropathy, unspecified; I95.9 Hypotension, unspecified; I10 Essential (primary) hypertension; K21.9 Gastro-esophageal reflux disease without esophagitis; D72.828 Other elevated white blood cell count; F32.9 Major depressive disorder, single episode, unspecified; E78.00 Pure hypercholesterolemia, unspecified; R91.1 Solitary pulmonary nodule; I25.10 Atherosclerotic heart disease of native coronary artery without angina pectoris; I25.2 Old myocardial infarction; K74.60 Unspecified cirrhosis of liver; N40.0 Benign prostatic hyperplasia without lower urinary tract symptoms; F10.10 Alcohol abuse, uncomplicated; S90.934A Unspecified superficial injury of right lesser toe(s), initial encounter; R10.10 Upper abdominal pain, unspecified; G89.29 Other chronic pain; Z86.73 Personal history of transient ischemic attack (TIA), and cerebral infarction without residual deficits; F31.2 Bipolar disorder, current episode manic severe with psychotic features; F41.9 Anxiety disorder, unspecified; G47.00 Insomnia, unspecified; E11.9 Type 2 diabetes mellitus without complications; E66.9 Obesity, unspecified; E53.0 Riboflavin deficiency; Z68.30 Body mass index [BMI] 30.0-30.9, adult; Z86.14 Personal history of Methicillin resistant Staphylococcus aureus infection; Z91.018 Allergy to other foods; Z79.82 Long term (current) use of aspirin; Z79.4 Long term (current) use of insulin; Z79.899 Other long term (current) drug therapy
CPT/HCPCS: 36415; 71046; 80053; 81001; 82150; 82962; 83605; 83690; 84145; 84484; 85025; 87040 ×2; 96361; 96365; 99284; 99285; A4217; J1956; J7030 ×2; 80202; 83036; 87070; 87205; A9270-GY; J1650; J1815-GY; J2543; J3370; J7040; J7050

== ENCOUNTER 2018-12-29 14:29 | Emergency (ER) | payer MEDICARE, MEDICAID ==
[2018-12-29] MEDS ORDERED: Sodium Chloride 0.9% 1,000 ML ONE (15:03)
[2018-12-29] MEDS ORDERED: Sodium Chloride 0.9% 1,000 ML IV ONE (15:08)
[2018-12-29] MEDS ORDERED: Sodium Chloride 0.9% 10 ML Syringe FLUSH PRN (15:10)
--- NOTE | 2018-12-29 15:18 | EDM.PDOC ---
ED HPI GENERAL MEDICAL PROBLEM - General Stated Complaint: SHORT OF BREATH Time Seen by Provider: 12/29/18 14:59 Source of Information: Reports: Patient, Provider History Limitations: Reports: No Limitations - History of Present Illness INITIAL COMMENTS - FREE TEXT/NARRATIVE: Patient brought to ER via ambulance from [place] with report of slurred speech. EMS reports that the slurred speech resolved en route. Patient tells us that he had just gotten out of the shower when the this started and he was sweating too. He also had a pain in the back of his neck and upper back and chest. He has no pain now. Dr. Spencer called me with info (at 1350) after the [place] had called her about patient. We discussed that he has some slurred speech at baseline but this was noted to be worse. Posterior Neck Pain Score (Numeric/FACES): 4 - Related Data Allergies Allergy/AdvReac Type Severity Reaction Status Date / Time No Known Drug Allergies Allergy Cannot Verified 12/29/18 15:20 Remember Home Meds: Home Meds metFORMIN [Glucophage] 1 tab PO BID 08/25/15 [History] Aspirin 81 mg PO DAILY 03/14/17 [History] Folic Acid 1 mg PO DAILY 03/15/17 [History] atorvaSTATin [Lipitor] 20 mg PO DAILY 03/15/17 [History] Nitroglycerin 0.4 mg SL ASDIRECTED PRN 07/31/17 [History] Carvedilol 6.25 mg PO BID 07/24/18 [History] Finasteride 5 mg PO DAILY 07/24/18 [History] Gabapentin [Neurontin] 600 mg PO TID 07/24/18 [History] Lisinopril 5 mg PO DAILY 07/24/18 [History] Melatonin 5 mg PO BEDTIME 07/24/18 [History] Omeprazole 20 mg PO BID 07/24/18 [History] Acetaminophen [Tylenol] 650 mg PO Q4H PRN tablet 07/26/18 [Rx] Alum Hydroxide/Mag Hydroxide [Mag-Al] 30 ml PO Q4H PRN cup 07/26/18 [Rx] Isosorbide Mononitrate [Imdur] 30 mg PO DAILY 07/26/18 [History] Albuterol [Proventil HFA] 1 puff INH QID PRN 11/06/18 [History] Loperamide [Imodium] 2 mg PO ASDIRECTED PRN 11/06/18 [History] Magnesium Hydroxide [Milk of Magnesia] 30 ml PO DAILY PRN 11/06/18 [History] OLANZapine [Olanzapine] 10 mg PO DAILY 11/06/18 [History] Thiamine HCl [B-1] 100 mg PO DAILY 11/06/18 [History] buPROPion HCl [Wellbutrin Xl] 300 mg PO DAILY 11/06/18 [History] Insulin Degludec [Tresiba] 60 unit SQ BEDTIME #0 11/09/18 [Rx] Insulin Aspart [NovoLOG] 5 unit SQ TIDAC 12/29/18 [History] Semaglutide [Ozempic] 0.5 mg SQ DAILY 12/29/18 [History] guaiFENesin/Dextromethorphan [Guaifenesin Dm Syrup] 10 ml PO Q6H PRN 12/29/18 [ History] Past Medical History HEENT History: Reports: None Cardiovascular History: Reports: High Cholesterol, Hypertension, [place] Respiratory History: Reports: SOB Gastrointestinal History: Reports: Cirrhosis, Gastritis, GERD Genitourinary History: Reports: BPH, Renal Disease Musculoskeletal History: Reports: Fracture, Other (See Below) Other Musculoskeletal History: muscle weakness Neurological History: Reports: CVA, TIA, Other (See Below) Other Neuro History: TBI. personality disorder Psychiatric History: Reports: Addiction, Anxiety, Depression Other Psychiatric History: insomnia Endocrine/Metabolic History: Reports: Diabetes, Type II, Obesity/BMI 30+ Hematologic History: Reports: B12 Deficiency Immunologic History: Reports: None Oncologic (Cancer) History: Reports: None Dermatologic History: Reports: Decubitus Ulcer, Other (See Below) Other Dermatologic History: 3rd r. toe - Infectious Disease History Infectious Disease History: Reports: MRSA - Past Surgical History Head Surgeries/Procedures: Reports: None GI Surgical History: Reports: Other (See Below) Musculoskeletal Surgical History: Reports: Shoulder Surgery Social & Family History - Family History Family Medical History: Noncontributory Endocrine/Metabolic: Reports: Diabetes, type II - Caffeine Use Caffeine Use: Reports: None ED ROS GENERAL - Review of Systems Review Of Systems: See Below Constitutional: Reports: Diaphoresis (briefly after shower). Denies: Fever, Malaise HEENT: Denies: Ear Pain, Throat Pain, Vision Change Respiratory: Denies: Shortness of Breath, Cough Cardiovascular: Denies: Chest Pain, Lightheadedness, Syncope Endocrine: Reports: No Symptoms GI/Abdominal: Denies: Abdominal Pain, Diarrhea, Vomiting : Denies: Dysuria, Flank Pain Musculoskeletal: Reports: No Symptoms (except as in HPI) Skin: Denies: Cyanosis, Jaundice, Mottled, Pallor Neurological: Denies: Confusion, Dizziness, Seizure, Syncope, Trouble Speaking Psychiatric: Denies: Agitation, Anxiety ED EXAM, GENERAL - Physical Exam Exam: See Below Exam Limited By: No Limitations General Appearance: Alert, WD/WN, No Apparent Distress Eye Exam: Bilateral Eye: EOMI, Normal Inspection, PERRL Ears: Normal External Exam, Hearing Grossly Normal Nose: Normal Inspection, No Blood Throat/Mouth: Normal Inspection, Normal Lips, Normal Voice, No Airway Compromise Head: Atraumatic, Normocephalic Neck: Normal Inspection Respiratory/Chest: No Respiratory Distress, Lungs Clear, Normal Breath Sounds Cardiovascular: Regular Rate, Rhythm, No Murmur Peripheral Pulses: 1+: Carotid (L), Carotid (R), Radial (L), Radial (R), Posterior Tibial (L), Posterior Tibial (R) GI/Abdominal: Normal Bowel Sounds, Soft, Non-Tender, No Organomegaly, No Distention Back Exam: Normal Inspection, Full Range of Motion. No: CVA Tenderness (L), CVA Tenderness (R) Extremities: Normal Inspection Neurological: Alert, Oriented, Normal Cognition, No Motor/Sensory Deficits Psychiatric: Normal Affect, Normal Mood Skin Exam: Warm, Dry, Intact, Normal Color, No Rash Course - Vital Signs Last Recorded V/S: Last Vital Signs Temp 97.1 F 12/29/18 14:45 Pulse 69 12/29/18 15:45 Resp 15 12/29/18 15:45 BP 88/48 L 12/29/18 15:45 Pulse Ox 95 12/29/18 15:45 - Orders/Labs/Meds Orders: Active Orders 24 hr Category Date Time Status EKG Documentation Completion [RC] ASDIRECTED Care 12/29/18 15:09 Ordered Sodium Chloride 0.9% [Saline Flush] Med 12/29/18 15:10 Ordered 10 ml FLUSH Q8HR PRN Saline Lock Insert [OM.PC] Routine Oth 12/29/18 15:10 Ordered EKG 12 Lead [EK] Routine Ther 12/29/18 15:08 Ordered Medication Orders Sodium Chloride (Saline Flush) 10 ml FLUSH Q8HR PRN PRN Reason: keep vein open Last Admin: 12/29/18 15:22 Dose: 10 ml Labs: Laboratory Tests 12/29/18 12/29/18 Range/Units 15:25 15:25 WBC 9.07 (5.00-10.00) 10^3/uL RBC 3.89 L (4.50-6.00) 10^6/uL Hgb 10.8 L (13.0-17.0) g/dL Hct 31.6 L (40.0-52.0) % MCV 81.2 L (82.0-92.0) fL MCH 27.8 (27.0-31.0) pg MCHC 34.2 (32.0-36.0) g/dL RDW 15.1 H (11.5-14.5) % Plt Count 170 (150-400) 10^3/uL MPV 9.1 (7.4-10.4) fL Immature Gran % (Auto) 0.7 (0.0-5.0) % Neut % (Auto) 68.6 (50.0-70.0) % Lymph % (Auto) 14.6 L (20.0-40.0) % [place] % (Auto) 9.0 H (2.0-8.0) % Eos % (Auto) 6.7 H (1.0-3.0) % Baso % (Auto) 0.4 (0.0-1.0) % Immature Gran # (Auto) 0.06 (0.00-0.50) 10^3/uL Neut # (Auto) 6.22 (2.50-7.00) 10^3/uL Lymph # (Auto) 1.32 (1.00-4.00) 10^3/uL [place] # (Auto) 0.82 H (0.10-0.80) 10^3/uL Eos # (Auto) 0.61 H (0.10-0.30) 10^3/uL Baso # (Auto) 0.04 (0.00-0.10) 10^3/uL Sodium 140 (136-145) mmol/L Potassium 4.9 (3.3-5.3) mmol/L Chloride 107 (98-115) mmol/L Carbon Dioxide 20.7 L (21.0-32.0) mmol/L Anion Gap 17.2 H (5-15) mmol/L BUN 21 (6-25) mg/dL Creatinine 1.13 (0.51-1.17) mg/dL Est Cr Clr Drug Dosing 63.05 mL/min Estimated GFR (MDRD) > 60 mL/min Glucose 137 H (75 - 99) mg/dL Calcium 8.2 L (8.7-10.3) mg/dL Total Bilirubin 0.5 (0.2-1.0) mg/dL AST 22 (15-37) U/L ALT 32 (12-78) U/L Alkaline Phosphatase 96 (46-116) IU/L Total Protein 7.5 (6.4-8.2) g/dL Albumin 3.23 (3.00-4.80) g/dL Meds: Medications Generic Name Dose Route Start Last Admin Trade Name Freq PRN Reason Stop Dose Admin Sodium Chloride 10 ml 12/29/18 15:10 12/29/18 15:22 Saline Flush FLUSH 10 ml Q8HR PRN Administration keep vein open Discontinued Medications Generic Name Dose Route Start Last Admin Trade Name Freq PRN Reason Stop Dose Admin Sodium Chloride Confirm 12/29/18 15:03 12/29/18 15:23 Normal Saline Administered 12/29/18 15:04 Not Given Dose 1,000 mls @ as directed .ROUTE .STK-MED ONE Sodium Chloride 1,000 mls @ 999 mls/hr 12/29/18 15:08 12/29/18 15:05 Normal Saline IV 12/29/18 16:08 999 mls/hr .BOLUS ONE Administration - Re-Assessments/Exams Free Text/Narrative Re-Assessment/Exam: 12/29/18 15:22 Patient was noted to be hypotensive on arrival so as soon as IV access could be established fluids were started. During this patient is alert and oriented. I have seen this patient 2-3 times in the ER in the recent past and this is the best I have seen him in general. He has a somewhat flat affect at baseline but he is conversive and interactive today. 12/29/18 16:13 Labs all okay. BP is improved to 107/57. Patient is comfortable and stable. He was telling the nurses jokes while fluids were running. Discussed findings and recommendations with patient, including increasing water intake to 8 cups a day to avoid dehydration and low blood pressure. Discharged to home. Departure - Departure Time of Disposition: 16:11 Disposition: DC/Tfer to SNF 03 Reason for Transfer *Q: Other Condition: Good Clinical Impression: Hypotension due to hypovolemia Instructions: Dehydration, Adult, [id number] Referrals: Sowmya Lassiter MD [Primary Care Provider] - Additional Instructions: 1. Try to drink 8 cups of water daily. 2. Follow up with your PCP if this problem continues. - My Orders Last 24 Hours: My Active Orders 12/29/18 15:08 EKG 12 Lead [EK] Routine 12/29/18 15:09 EKG Documentation Completion [RC] ASDIRECTED 12/29/18 15:10 Sodium Chloride 0.9% [Saline Flush] 10 ml FLUSH Q8HR PRN Saline Lock Insert [OM.PC] Routine - Assessment/Plan Last 24 Hours: My Active Orders 12/29/18 15:08 EKG 12 Lead [EK] Routine 12/29/18 15:09 EKG Documentation Completion [RC] ASDIRECTED 12/29/18 15:10 Sodium Chloride 0.9% [Saline Flush] 10 ml FLUSH Q8HR PRN Saline Lock Insert [OM.PC] Routine
[2018-12-29 16:05] LABS: ANION GAP 17.2 mmol/L (5-15); CHLORIDE,CL 107 mmol/L (98-115); SODIUM,NA 140 mmol/L (136-145)
[2018-12-29 16:11] VITALS: BP 107/57
== END 2018-12-29 17:15 ==
LOC: KA.ED 14:29
DX: E86.1 Hypovolemia (principal); I95.9 Hypotension, unspecified; I10 Essential (primary) hypertension; I25.2 Old myocardial infarction; K21.9 Gastro-esophageal reflux disease without esophagitis; F41.9 Anxiety disorder, unspecified; F32.9 Major depressive disorder, single episode, unspecified; E11.9 Type 2 diabetes mellitus without complications; Z79.84 Long term (current) use of oral hypoglycemic drugs; Z79.82 Long term (current) use of aspirin; Z79.899 Other long term (current) drug therapy; Z79.4 Long term (current) use of insulin; E78.00 Pure hypercholesterolemia, unspecified; Z86.73 Personal history of transient ischemic attack (TIA), and cerebral infarction without residual deficits; Z86.14 Personal history of Methicillin resistant Staphylococcus aureus infection
CPT/HCPCS: 36415; 80053; 85025; 93005; 96360; 99285; J7030

== ENCOUNTER 2020-02-06 11:55 | Emergency (ER) | payer MEDICARE, MEDICAID ==
[2020-02-06] MEDS ORDERED: Acetaminophen 325 MG Tab PO PRN (12:15)
[2020-02-06] MEDS ORDERED: Sodium Chloride 0.9% 10 ML Syringe FLUSH PRN ×2 (12:15)
--- NOTE | 2020-02-06 12:30 | CR ---
[id number] RAD/RAD Chest PA or AP 1V EXAM: SINGLE VIEW CHEST. INDICATION: VIRAL PNEUMONIA COMPARISON: CORRELATION IS MADE WITH NOVEMBER 06, 2018 FINDINGS: Bilateral patchy basal infiltrates are seen The cardiac silhouette is enlarged but stable Surgical changes of the left shoulder are noted IMPRESSION: BIBASILAR INTERSTITIAL PNEUMONIA Elbert Fierro MD 02/06/20 1211 Thank you for allowing us to participate in the care of your patient.
--- NOTE | 2020-02-06 12:48 | EDM.PDOC ---
ED HPI GENERAL MEDICAL PROBLEM - General Chief Complaint: General Stated Complaint: short of breath Time Seen by Provider: 02/06/20 12:00 Source of Information: Reports: Old Records, Provider, RN History Limitations: Reports: Altered Mental Status (alcoholic dementia) - History of Present Illness INITIAL COMMENTS - FREE TEXT/NARRATIVE: 64yo gentleman resident at [facility] whom tested positive for COVID this week is transferred to [place] emergency room with complaints of increased difficulty breathing. Vital signs have been stable but the nursing staff reported increased difficulty with breathing. His past medical history is several core morbidities which include alcoholic dementia diabetes hypertension coronary artery disease obesity and hyperlipidemia. He is also had prior history of intracranial hemorrhage due to a subdural hematoma in the past. Noncontributory to his history due to his alcoholic dementia. Vital signs she is afebrile with a temperature 97.6 pulse is 76 blood pressure is 104/72 respiratory's are from 17 to 20/min and O2 saturation is maintained in the 90% on room air x-ray taken today one view portable shows that there is bilateral patchy basilar infiltrates are seen the cardiac silhouette is enlarged but stable and surgical changes are seen in the left shoulder with prior ORIF. Impression is there is bibasilar interstitial pneumonia. Onset: Today, Gradual Onset Date: 02/03/20 Duration: Day(s):, Getting Worse Location: Reports: Generalized Quality: Reports: Pressure Severity: Moderate Improves with: Reports: None Worsens with: Reports: None Associated Symptoms: Reports: Shortness of Breath - Related Data Allergies Allergy/AdvReac Type Severity Reaction Status Date / Time No Known Drug Allergies Allergy Cannot Verified 12/29/18 15:20 Remember Home Meds: Home Meds metFORMIN [Glucophage] 1,000 mg PO BID 08/25/15 [History] Nitroglycerin 0.4 mg SL ASDIRECTED PRN 07/31/17 [History] Omeprazole 20 mg PO BID 07/24/18 [History] carvediloL [Carvedilol] 6.25 mg PO BID 07/24/18 [History] Alum Hydroxide/Mag Hydroxide [Mag-Al] 30 ml PO Q4H PRN cup 07/26/18 [Rx] Isosorbide Mononitrate [Imdur] 30 mg PO ASDIRECTED 07/26/18 [History] Albuterol [Proventil HFA] 1 puff INH QID PRN 11/06/18 [History] OLANZapine [Olanzapine] 10 mg PO DAILY 11/06/18 [History] buPROPion HCL [Wellbutrin Xl] 300 mg PO DAILY 11/06/18 [History] Semaglutide [Ozempic] 0.5 mg SQ DAILY 12/29/18 [History] Acetaminophen 500 mg PO Q6H PRN 02/06/20 [History] Insulin Degludec [Tresiba] 65 unit SQ BEDTIME 02/06/20 [History] Lidocaine HCl/Menthol [Icy Hot 4%-1% Cream] 1 gm TP TID PRN 02/06/20 [History] Loratadine [Claritin] 10 mg PO DAILY 02/06/20 [History] Magnesium Oxide 400 mg PO BID 02/06/20 [History] Past Medical History HEENT History: Reports: None Cardiovascular History: Reports: High Cholesterol, Hypertension, [place] Respiratory History: Reports: SOB Gastrointestinal History: Reports: Cirrhosis, Gastritis, GERD Genitourinary History: Reports: BPH, Renal Disease Musculoskeletal History: Reports: Fracture, Other (See Below) Other Musculoskeletal History: muscle weakness Neurological History: Reports: CVA, TIA, Other (See Below) Other Neuro History: TBI. personality disorder Psychiatric History: Reports: Addiction, Anxiety, Depression Other Psychiatric History: insomnia Endocrine/Metabolic History: Reports: Diabetes, Type II, Obesity/BMI 30+ Hematologic History: Reports: B12 Deficiency Immunologic History: Reports: None Oncologic (Cancer) History: Reports: None Dermatologic History: Reports: Decubitus Ulcer, Other (See Below) Other Dermatologic History: 3rd r. toe - Infectious Disease History Infectious Disease History: Reports: MRSA - Past Surgical History Head Surgeries/Procedures: Reports: None GI Surgical History: Reports: Other (See Below) Musculoskeletal Surgical History: Reports: Shoulder Surgery Social & Family History - Family History Family Medical History: Noncontributory Endocrine/Metabolic: Reports: Diabetes, type II - Caffeine Use Caffeine Use: Reports: None ED ROS GENERAL - Review of Systems Review Of Systems: Unable To Obtain Reason Not Obtained: Patient is noncontributory due to his alcoholic dementia ED EXAM, GENERAL - Physical Exam Exam: See Below Exam Limited By: Altered Mental Status General Appearance: Alert, WD/WN, No Apparent Distress, Obese Nose: Normal Inspection Throat/Mouth: No Airway Compromise Head: Atraumatic Neck: Supple. No: Lymphadenopathy (L), Lymphadenopathy (R) Respiratory/Chest: Decreased Breath Sounds, Rales Cardiovascular: Regular Rate, Rhythm GI/Abdominal: Soft, Non-Tender Back Exam: Normal Inspection Extremities: Normal Inspection Neurological: Alert, Confused Psychiatric: Depressed Mood, Flat Affect Skin Exam: Warm, Dry, Intact, Normal Color, No Rash EKG INTERPRETATION EKG Date: 02/06/20 Time: 12:50 Rhythm: NSR Rate (Beats/Min): 77 [place]: LAD-Left [place] Deviation P-Wave: Present QRS: Normal ST-T: Normal QT: Normal Comparison: NA - No Prior EKG EKG Interpretation Comments: Normal sinus rhythm, left axis deviation, abnormal ECG Course - Vital Signs Last Recorded V/S: Last Vital Signs Temp 97.6 F 02/06/20 11:59 Pulse 74 02/06/20 15:15 Resp 14 02/06/20 15:15 BP 76/54 L 02/06/20 15:15 Pulse Ox 94 L 02/06/20 15:15 - Orders/Labs/Meds Orders: Active Orders 24 hr Category Date Time Status Blood Glucose Check, Bedside [RC] ASDIRECTED Care 02/06/20 13:40 Active Cardiac Monitoring [RC] . DIRECTED Care 02/06/20 12:15 Active EKG Documentation Completion [RC] STAT Care 02/06/20 12:19 Active Peripheral IV Care [RC] . DIRECTED Care 02/06/20 12:20 Active BASIC METABOLIC PANEL,BMP [CHEM] Stat Lab 02/06/20 12:17 Ordered C-REACTIVE PROTEIN [CHEM] Stat Lab 02/06/20 12:17 Ordered CBC WITH AUTO DIFF [HEME] Stat Lab 02/06/20 12:17 Ordered HEPATIC FUNCTION PANEL,HFP [CHEM] Stat Lab 02/06/20 12:17 Ordered LACTIC ACID [CHEM] Stat Lab 02/06/20 12:17 Ordered PROCALCITONIN [REF] Stat Lab 02/06/20 12:15 Ordered Acetaminophen [TylenoL] Med 02/06/20 12:15 Active 650 mg PO Q4H PRN Dextrose 5%-0.45% NaCl [Dextrose 5%-1/2 NS] 1,000 ml Med 02/06/20 15:15 Active IV ASDIRECTED Sodium Chloride 0.9% [Saline Flush] Med 02/06/20 12:15 Active 10 ml FLUSH ASDIRECTED PRN Sodium Chloride 0.9% [Saline Flush] Med 02/06/20 12:15 Active 10 ml FLUSH Q8HR PRN Isolation [COMM] Stat Oth 02/06/20 12:15 Ordered Peripheral IV Insertion Adult [OM.PC] Routine Oth 02/06/20 12:15 Ordered Medication Orders Acetaminophen (Tylenol) 650 mg PO Q4H PRN PRN Reason: Fever Greater Than 101 Dextrose/Sodium Chloride (Dextrose 5%-1/2 Ns) 1,000 mls @ 250 mls/hr IV ASDIRECTED JOURDAN Last Admin: 02/06/20 15:14 Dose: 250 mls/hr Documented by: CARLO Sodium Chloride (Saline Flush) 10 ml FLUSH ASDIRECTED PRN PRN Reason: Keep Vein Open Sodium Chloride (Saline Flush) 10 ml FLUSH Q8HR PRN PRN Reason: keep vein open Meds: Medications Generic Name Dose Route Start Last Admin Trade Name Freq PRN Reason Stop Dose Admin Acetaminophen 650 mg 02/06/20 12:15 Tylenol PO Q4H PRN Fever Greater Than 101 Dextrose/Sodium Chloride 1,000 mls @ 250 mls/hr 02/06/20 15:15 02/06/20 15:14 Dextrose 5%-1/2 Ns IV 250 mls/hr ASDIRECTED JOURDAN Administration Sodium Chloride 10 ml 02/06/20 12:15 Saline Flush FLUSH ASDIRECTED PRN Keep Vein Open Sodium Chloride 10 ml 02/06/20 12:15 Saline Flush FLUSH Q8HR PRN keep vein open Discontinued Medications Generic Name Dose Route Start Last Admin Trade Name Freq PRN Reason Stop Dose Admin Dextrose/Water 50 ml 02/06/20 13:48 02/06/20 13:50 Dextrose 50% In Water IVPUSH 02/06/20 13:49 50 ml ONETIME ONE Administration Sodium Chloride 1,000 mls @ 1,000 mls/hr 02/06/20 13:20 02/06/20 13:30 Normal Saline IV 02/06/20 14:19 1,000 mls/hr .BOLUS ONE Administration Lidocaine Confirm 02/06/20 13:37 Xylocaine-Mpf 2% Administered 02/06/20 13:38 Dose 5 ml .ROUTE .STK-MED ONE - Radiology Interpretation Free Text/Narrative:: Single view chest x-ray Correlation is made with November 06, 2018 Findings: Bilateral patchy basal infiltrates are seen. The cardiac silhouette is enlarged but stable. Surgical changes of the left shoulder are noted. Impression: Bibasilar interstitial pneumonia - Re-Assessments/Exams Free Text/Narrative Re-Assessment/Exam: 02/06/20 14:31 Patient's blood sugars were 44 he was given 1 amp of D 50 and orange juice. Blood sugars are now 107. IO access was obtained in the left leg normal saline 1 L is running. Departure - Departure Time of Disposition: 15:34 Disposition: DC/Tfer to [facility] 02 Condition: Fair Clinical Impression: Lab test positive for detection of COVID-19 virus, Hypoglycemia due to type 1 diabetes mellitus, Dementia associated with alcoholism without behavioral disturbance Pneumonia Qualifiers: Pneumonia type: due to unspecified organism Laterality: bilateral Lung location: lower lobe of lung Qualified Code(s): J18.9 - Pneumonia, unspecified organism Hypotension Qualifiers: Hypotension type: unspecified hypotension type Qualified Code(s): I95.9 - Hypotension, unspecified - Discharge Information Forms: ED Department Discharge, Interfacility Transfer [facility] Sepsis Event Note (ED) - Evaluation Sepsis Screening Result: No Definite Risk - Focused Exam Vital Signs: Vital Signs Temp Pulse Resp BP Pulse Ox 02/06/20 15:15 74 14 76/54 L 94 L 02/06/20 14:30 74 14 82/42 L 96 02/06/20 14:00 73 20 78/32 L 95 02/06/20 13:30 77 19 89/65 L 96 02/06/20 13:17 77 25 H 75/46 L 97 02/06/20 12:15 77 22 H 91/70 96 02/06/20 12:00 78 21 H 97/68 95 02/06/20 11:59 97.6 F 76 17 104/72 97 - My Orders Last 24 Hours: My Active Orders 02/06/20 12:15 Cardiac Monitoring [RC] . DIRECTED PROCALCITONIN [REF] Stat Acetaminophen [TylenoL] 650 mg PO Q4H PRN Sodium Chloride 0.9% [Saline Flush] 10 ml FLUSH ASDIRECTED PRN Sodium Chloride 0.9% [Saline Flush] 10 ml FLUSH Q8HR PRN Isolation [COMM] Stat Peripheral IV Insertion Adult [OM.PC] Routine 02/06/20 12:17 BASIC METABOLIC PANEL,BMP [CHEM] Stat C-REACTIVE PROTEIN [CHEM] Stat CBC WITH AUTO DIFF [HEME] Stat HEPATIC FUNCTION PANEL,HFP [CHEM] Stat LACTIC ACID [CHEM] Stat 02/06/20 12:19 EKG Documentation Completion [RC] STAT 02/06/20 12:20 Peripheral IV Care [RC] . DIRECTED 02/06/20 13:40 Blood Glucose Check, Bedside [RC] ASDIRECTED 02/06/20 15:15 Dextrose 5%-0.45% NaCl [Dextrose 5%-1/2 NS] 1,000 ml IV ASDIRECTED - Assessment/Plan Last 24 Hours: My Active Orders 02/06/20 12:15 Cardiac Monitoring [RC] . DIRECTED PROCALCITONIN [REF] Stat Acetaminophen [TylenoL] 650 mg PO Q4H PRN Sodium Chloride 0.9% [Saline Flush] 10 ml FLUSH ASDIRECTED PRN Sodium Chloride 0.9% [Saline Flush] 10 ml FLUSH Q8HR PRN Isolation [COMM] Stat Peripheral IV Insertion Adult [OM.PC] Routine 02/06/20 12:17 BASIC METABOLIC PANEL,BMP [CHEM] Stat C-REACTIVE PROTEIN [CHEM] Stat CBC WITH AUTO DIFF [HEME] Stat HEPATIC FUNCTION PANEL,HFP [CHEM] Stat LACTIC ACID [CHEM] Stat 02/06/20 12:19 EKG Documentation Completion [RC] STAT 02/06/20 12:20 Peripheral IV Care [RC] . DIRECTED 02/06/20 13:40 Blood Glucose Check, Bedside [RC] ASDIRECTED 02/06/20 15:15 Dextrose 5%-0.45% NaCl [Dextrose 5%-1/2 NS] 1,000 ml IV ASDIRECTED Assessment:: COVID positive Bibasilar interstitial pneumonia Alcoholic dementia Hypoglycemia Hypotension Plan: Patient will be transferred to [address] for respiratory management and a COVID positive patient. Dr. Toledo is accepting physician. She is transferred by ground ambulance.
[2020-02-06] MEDS ORDERED: Sodium Chloride 0.9% 1,000 ML IV ONE (13:20)
[2020-02-06] MEDS ORDERED: Lidocaine 2% 5 ML SDV ONE (13:37)
[2020-02-06] MEDS ORDERED: 50% Dextrose in Water 50 ML Syringe IVPUSH ONE (13:48)
[2020-02-06 14:37] VITALS: PULSE 74
[2020-02-06] MEDS ORDERED: Dextrose 5%-0.45% NaCl 1,000 ML IV SCH (15:15)
[2020-02-06 15:19] VITALS: BP 76/54
== END 2020-02-06 16:00 ==
LOC: KA.ED 11:55
DX: U07.1 COVID-19 (principal); J12.89 Other viral pneumonia; I95.9 Hypotension, unspecified; F10.97 Alcohol use, unspecified with alcohol-induced persisting dementia; E13.649 Other specified diabetes mellitus with hypoglycemia without coma; E66.9 Obesity, unspecified; K21.9 Gastro-esophageal reflux disease without esophagitis; I10 Essential (primary) hypertension; I25.2 Old myocardial infarction; F41.9 Anxiety disorder, unspecified; F32.9 Major depressive disorder, single episode, unspecified; K74.60 Unspecified cirrhosis of liver; Z86.73 Personal history of transient ischemic attack (TIA), and cerebral infarction without residual deficits; Z68.38 Body mass index [BMI] 38.0-38.9, adult
CPT/HCPCS: 71045; 82962; 96361; 96374; 99285; J7030; J7042; 99284

== ENCOUNTER 2020-02-11 03:59 | Emergency (ER) | payer MEDICARE, MEDICAID ==
[2020-02-11] MEDS ORDERED: Nitroglycerin 0.4 MG Tab.SL SL ONE (04:00)
[2020-02-11] MEDS ORDERED: Aspirin 81 MG Tab.Chew PO ONE (04:00)
--- NOTE | 2020-02-11 05:15 | EDM.PDOC ---
ED HPI GENERAL MEDICAL PROBLEM - General Chief Complaint: Cardiovascular Problem Stated Complaint: Chest pain Time Seen by Provider: 02/11/20 04:18 Source of Information: Reports: Patient, EMS History Limitations: Reports: No Limitations - History of Present Illness INITIAL COMMENTS - FREE TEXT/NARRATIVE: Presents emergency room via EMS for acute left-sided chest pain. Which started at 0230 this morning. Patient was lying in bed trying to fall asleep and developed sharp left-sided chest pain that radiates to his left shoulder. It is associated with cough shortness of breath. He is currently diagnosed with COVID-19 on January 28 and he states his shortness of breath and cough has been getting worse. He was admitted to [facility] for 2-3 nights and [facility] on dexamethasone 6 mg p.o. daily for total of 5 days. Patient has no hypoxia on arrival or at the fdc today. Patient has a long list of comorbidities including history of hypertension, hyperlipidemia, diabetes, cirrhosis, and myocardial infarction. Patient rates pain sharp and 7/10. Chest Pain Score (Numeric/FACES): 7 - Related Data Allergies Allergy/AdvReac Type Severity Reaction Status Date / Time mustard Allergy Vomiting Verified 02/11/20 07:02 No Known Drug Allergies Allergy Cannot Verified 02/11/20 07:03 Remember Home Meds: Home Meds metFORMIN [Glucophage] 1,000 mg PO BID 08/25/15 [History] Nitroglycerin 0.4 mg SL ASDIRECTED PRN 07/31/17 [History] Omeprazole 20 mg PO BID 07/24/18 [History] carvediloL [Carvedilol] 6.25 mg PO BID 07/24/18 [History] Alum Hydroxide/Mag Hydroxide [Mag-Al] 30 ml PO Q4H PRN cup 07/26/18 [Rx] Isosorbide Mononitrate [Imdur] 30 mg PO DAILY 07/26/18 [History] Albuterol [Proventil HFA] 1 puff INH QID PRN 11/06/18 [History] OLANZapine [Olanzapine] 20 mg PO DAILY 11/06/18 [History] buPROPion HCL [Wellbutrin Xl] 300 mg PO DAILY 11/06/18 [History] Semaglutide [Ozempic] 0.5 mg SQ ASDIRECTED 12/29/18 [History] Acetaminophen 500 mg PO Q6H PRN 02/06/20 [History] Insulin Degludec [Tresiba] 65 unit SQ BEDTIME 02/06/20 [History] Lidocaine HCl/Menthol [Icy Hot 4%-1% Cream] 1 gm TP TID PRN 02/06/20 [History] Loratadine [Claritin] 10 mg PO DAILY PRN 02/06/20 [History] Magnesium Oxide 400 mg PO BID 02/06/20 [History] dexAMETHasone [Dexamethasone] 6 mg PO DAILY 02/11/20 [History] Past Medical History HEENT History: Reports: None Cardiovascular History: Reports: High Cholesterol, Hypertension, [place] Respiratory History: Reports: SOB Gastrointestinal History: Reports: Cirrhosis, Gastritis, GERD Genitourinary History: Reports: BPH, Renal Disease Musculoskeletal History: Reports: Fracture, Other (See Below) Other Musculoskeletal History: muscle weakness Neurological History: Reports: CVA, TIA, Other (See Below) Other Neuro History: TBI. personality disorder Psychiatric History: Reports: Addiction, Anxiety, Depression Other Psychiatric History: insomnia Endocrine/Metabolic History: Reports: Diabetes, Type II, Obesity/BMI 30+ Hematologic History: Reports: B12 Deficiency Immunologic History: Reports: None Oncologic (Cancer) History: Reports: None Dermatologic History: Reports: Decubitus Ulcer, Other (See Below) Other Dermatologic History: 3rd r. toe - Infectious Disease History Infectious Disease History: Reports: MRSA - Past Surgical History Head Surgeries/Procedures: Reports: None GI Surgical History: Reports: Other (See Below) Musculoskeletal Surgical History: Reports: Shoulder Surgery Social & Family History - Family History Family Medical History: Noncontributory Endocrine/Metabolic: Reports: Diabetes, type II - Caffeine Use Caffeine Use: Reports: None ED ROS GENERAL - Review of Systems Review Of Systems: See Below Constitutional: Reports: Chills, Malaise, Weakness, Fatigue, Weight Loss HEENT: Reports: Rhinitis Respiratory: Reports: Shortness of Breath, Wheezing, Cough. Denies: Sputum Cardiovascular: Reports: Chest Pain. Denies: Palpitations Endocrine: Reports: Fatigue GI/Abdominal: Reports: Abdominal Pain. Denies: Black Stool, Bloody Stool, Diarrhea, Hematemesis, Hematochezia, Melena, Nausea, Vomiting Musculoskeletal: Reports: Other (Myalgias) Skin: Reports: No Symptoms Neurological: Reports: Difficulty Walking, Other (due to generalized weakness) ED EXAM, GENERAL - Physical Exam Exam: See Below Exam Limited By: No Limitations General Appearance: Alert, WD/WN, Mild Distress Eye Exam: Bilateral Eye: EOMI, PERRL Nose: Normal Inspection Throat/Mouth: Normal Inspection, Normal Lips, Normal Oropharynx Head: Atraumatic, Normocephalic Neck: Normal Inspection, Supple, Non-Tender Respiratory/Chest: Respiratory Distress, Decreased Breath Sounds, Crackles, Rhonchi, Wheezing. No: Retractions Cardiovascular: Normal Peripheral Pulses, Regular Rate, Rhythm Peripheral Pulses: 2+: Radial (L), Radial (R), Posterior Tibial (L), Posterior Tibial (R), Dorsalis Pedis (L), Dorsalis Pedis (R) GI/Abdominal: Normal Bowel Sounds, Soft, Tender, Other (obese, tender right sided abdominal pain, which is chronic he states, no new changes. ). No: Rebound Back Exam: Normal Inspection, Full Range of Motion Neurological: Alert, Oriented, Normal Cognition Psychiatric: Normal Affect, Normal Mood Skin Exam: Warm, Intact, No Rash. No: Diaphoretic #1 Interpretation EKG Date: 02/11/20 Rhythm: NSR [place]: LAD-Left [place] Deviation P-Wave: Present QRS: Normal ST-T: Normal QT: Prolonged Comparison: No Change Course - Vital Signs Last Recorded V/S: Last Vital Signs Temp 97.3 F 02/11/20 05:13 Pulse 75 02/11/20 07:03 Resp 30 H 02/11/20 07:03 BP 151/90 H 02/11/20 07:03 Pulse Ox 95 02/11/20 07:03 - Orders/Labs/Meds Labs: Laboratory Tests 02/11/20 02/11/20 02/11/20 Range/Units 05:00 05:00 05:00 WBC 14.43 H (5.00-10.00) 10^3/uL RBC 2.89 L (4.50-6.00) 10^6/uL Hgb 7.9 L D (13.0-17.0) g/dL Hct 23.6 L (40.0-52.0) % MCV 81.7 L (82.0-92.0) fL MCH 27.3 (27.0-31.0) pg MCHC 33.5 (32.0-36.0) g/dL RDW 14.5 (11.5-14.5) % Plt Count 188 (150-400) 10^3/uL MPV 9.5 (7.4-10.4) fL Immature Gran % (Auto) 2.2 (0.0-5.0) % Neut % (Auto) 88.8 H (50.0-70.0) % Lymph % (Auto) 4.6 L (20.0-40.0) % [place] % (Auto) 4.4 (2.0-8.0) % Eos % (Auto) 0.0 L (1.0-3.0) % Baso % (Auto) 0.0 (0.0-1.0) % Neut # (Auto) 12.82 H (2.50-7.00) 10^3/uL Lymph # (Auto) 0.66 L (1.00-4.00) 10^3/uL [place] # (Auto) 0.63 (0.10-0.80) 10^3/uL Eos # (Auto) 0.00 L (0.10-0.30) 10^3/uL Baso # (Auto) 0.00 (0.00-0.10) 10^3/uL Immature Gran # (Auto) 0.32 (0.00-0.50) 10^3/uL Sodium 139 (136-145) mmol/L Potassium 4.6 (3.3-5.3) mmol/L Chloride 106 (98-115) mmol/L Carbon Dioxide 20.8 L (21.0-32.0) mmol/L Anion Gap 16.8 H (5-15) mmol/L BUN 15 (6-25) mg/dL Creatinine 0.53 (0.51-1.17) mg/dL Est Cr Clr Drug Dosing 132.64 mL/min Estimated GFR (MDRD) > 60 mL/min Glucose 214 H (75 - 99) mg/dL Lactic Acid 1.7 (0.4-2.0) mmol/L Calcium 8.0 L (8.7-10.3) mg/dL Total Bilirubin 0.5 (0.2-1.0) mg/dL AST 36 (15-37) U/L ALT 40 (12-78) U/L Alkaline Phosphatase 77 (46-116) IU/L Troponin I < 0.04 (0.00-0.070) ng/mL C-Reactive Protein (0.0-0.9) mg/dL Total Protein 6.4 (6.4-8.2) g/dL Albumin 2.41 L (3.00-4.80) g/dL SARS CoV-2 RNA Rapid BETTIE (NEGATIVE) 02/11/20 02/11/20 Range/Units 05:00 06:45 WBC (5.00-10.00) 10^3/uL RBC (4.50-6.00) 10^6/uL Hgb (13.0-17.0) g/dL Hct (40.0-52.0) % MCV (82.0-92.0) fL MCH (27.0-31.0) pg MCHC (32.0-36.0) g/dL RDW (11.5-14.5) % Plt Count (150-400) 10^3/uL MPV (7.4-10.4) fL Immature Gran % (Auto) (0.0-5.0) % Neut % (Auto) (50.0-70.0) % Lymph % (Auto) (20.0-40.0) % [place] % (Auto) (2.0-8.0) % Eos % (Auto) (1.0-3.0) % Baso % (Auto) (0.0-1.0) % Neut # (Auto) (2.50-7.00) 10^3/uL Lymph # (Auto) (1.00-4.00) 10^3/uL [place] # (Auto) (0.10-0.80) 10^3/uL Eos # (Auto) (0.10-0.30) 10^3/uL Baso # (Auto) (0.00-0.10) 10^3/uL Immature Gran # (Auto) (0.00-0.50) 10^3/uL Sodium (136-145) mmol/L Potassium (3.3-5.3) mmol/L Chloride (98-115) mmol/L Carbon Dioxide (21.0-32.0) mmol/L Anion Gap (5-15) mmol/L BUN (6-25) mg/dL Creatinine (0.51-1.17) mg/dL Est Cr Clr Drug Dosing mL/min Estimated GFR (MDRD) mL/min Glucose (75 - 99) mg/dL Lactic Acid (0.4-2.0) mmol/L Calcium (8.7-10.3) mg/dL Total Bilirubin (0.2-1.0) mg/dL AST (15-37) U/L ALT (12-78) U/L Alkaline Phosphatase (46-116) IU/L Troponin I (0.00-0.070) ng/mL C-Reactive Protein 13.0 H (0.0-0.9) mg/dL Total Protein (6.4-8.2) g/dL Albumin (3.00-4.80) g/dL SARS CoV-2 RNA Rapid BETTIE Positive H (NEGATIVE) Meds: Medications Discontinued Medications Generic Name Dose Route Start Last Admin Trade Name Freq PRN Reason Stop Dose Admin Al Hydroxide/Mg Hydroxide 30 ml 02/11/20 06:04 02/11/20 06:10 Mag-Al Plus PO 02/11/20 06:05 30 ml ONETIME ONE Administration Aspirin 324 mg 02/11/20 04:00 02/11/20 04:15 Aspirin PO 02/11/20 04:01 324 mg ONETIME ONE Administration Nitroglycerin 0.4 mg 02/11/20 04:00 02/11/20 04:15 Nitrostat SL 02/11/20 04:01 0.4 mg ONETIME ONE Administration - Re-Assessments/Exams Free Text/Narrative Re-Assessment/Exam: 02/11/20 06:08 Left-sided chest pain has not changed 11/05. No radiation. He does state having chronic right lower right-sided abdominal pain due to cirrhosis however this left-sided chest pain is new. His vital signs have been stable entire visit room air oxygen 97-99,% respirations 32, pulse 70 blood pressure 164/90. After labs returned I did consult on-call [facility]. He suggested transfer to [place] due to no IV access. After multiple attempts of trying to obtain IV access. Patient was given aspirin 4 baby aspirin along with 2 nitroglycerin with no change of pain. Going to trial some oral Maalox as he has history of GERD and is on his med list. Consulted on-call [facility] for transfer by ground ALS. 02/11/20 06:47 [facility] in [place] requires patient to be tested for COVID-19 to decide which [facility] the patient [facility] to. Likely patient will still be positive due to the fact that he still symptomatic with shortness of breath cough chills weakness along recently being tested +13 days ago. Patient vitally stable no hypoxia. Patient still does have 7/10 chest pain. However he is comfortable in bed laughs and jokes and is in no respiratory distress. He has not required any oxygen during entire ED visit. 02/11/20 06:48 Departure - Departure Time of Disposition: 06:10 Disposition: DC/Tfer to Acute Hospital 02 Reason for Transfer *Q: Other (COVID-19 infection, respiratory distress, pneumo tito) Condition: Serious Clinical Impression: COVID-19, Shortness of breath Chest pain Qualifiers: Chest pain type: unspecified Qualified Code(s): R07.9 - Chest pain, unspecified Referrals: Marcie Aguirre BANK OFFICER [Primary Care Provider] -
[2020-02-11 05:43] LABS: ANION GAP 16.8 mmol/L (5-15); CHLORIDE,CL 106 mmol/L (98-115); SODIUM,NA 139 mmol/L (136-145)
[2020-02-11] MEDS ORDERED: Aluminum Hydroxide/Magnesium Hydroxide/Simethicone Susp 30 ML Cup PO ONE (06:04)
[2020-02-11 07:05] VITALS: BP 151/90; PULSE 75
--- NOTE | 2020-02-11 07:44 | CR ---
[id number] RAD/RAD Chest PA or AP 1V EXAM: RAD Chest PA or AP 1V INDICATION: CHEST PAIN COMPARISON: February 06, 2020. DISCUSSION: Cardiomediastinal silhouette is stable in size and contour. Patchy airspace opacifications bilaterally. No pneumothorax or pleural effusion. Low lung volumes. IMPRESSION: Patchy airspace opacifications bilaterally. Findings are likely infectious/inflammatory in nature as can be seen with atypical/viral pneumonia. Gustabo Worthington DO 02/11/20 0743 Thank you for allowing us to participate in the care of your patient.
== END 2020-02-11 08:00 ==
LOC: KA.ED 03:59
DX: U07.1 COVID-19 (principal); R07.9 Chest pain, unspecified; E78.00 Pure hypercholesterolemia, unspecified; I10 Essential (primary) hypertension; I25.2 Old myocardial infarction; K21.9 Gastro-esophageal reflux disease without esophagitis; F41.9 Anxiety disorder, unspecified; F32.9 Major depressive disorder, single episode, unspecified; E11.9 Type 2 diabetes mellitus without complications; Z79.899 Other long term (current) drug therapy; Z79.4 Long term (current) use of insulin; E66.9 Obesity, unspecified; Z68.33 Body mass index [BMI] 33.0-33.9, adult; Z91.018 Allergy to other foods; Z86.73 Personal history of transient ischemic attack (TIA), and cerebral infarction without residual deficits
CPT/HCPCS: 36415; 71045; 80053; 83605; 84484; 85025; 86140; 93005; 99285; A9270; U0002; 99284

== ENCOUNTER 2020-03-02 01:25 | Emergency (ER) | payer MEDICARE, MEDICAID ==
--- NOTE | 2020-03-02 02:02 | EDM.PDOC ---
ED HPI GENERAL MEDICAL PROBLEM - General Chief Complaint: General Stated Complaint: hypotension Time Seen by Provider: 03/02/20 02:00 Source of Information: Reports: Patient History Limitations: Reports: No Limitations - History of Present Illness INITIAL COMMENTS - FREE TEXT/NARRATIVE: Arrives to emergency room via EMS for an episode at the alf hypoglycemia and one reading of hypotension. The nurses were checking up on him and he was mumbling his words and slight diaphoretic, blood sugar was checked it was in the 50s. They also checked his blood pressure and it was initially 100/60's, at one time she did check her blood pressure again and it was 69/40s therefore SNF staff called the on-call physician, report the episode of hypoglycemia and episode of hypotension therefore was sent here to be evaluated. Patient did recently get over ID- however he is off his quarantine state. On arrival patient has no complaints, his blood glucose in route was in the 60s trending up towards the 70s. The patient denies any recent vomiting or diarrhea patient did eat supper tonight. He did have his Tresiba adjusted as he had some periods of episodes of hypoglycemia. - Related Data Allergies Allergy/AdvReac Type Severity Reaction Status Date / Time mustard Allergy Vomiting Verified 03/02/20 02:09 No Known Drug Allergies Allergy Cannot Verified 03/02/20 02:09 Remember Home Meds: Home Meds metFORMIN [Glucophage] 1,000 mg PO BID 08/25/15 [History] Nitroglycerin 0.4 mg SL ASDIRECTED PRN 07/31/17 [History] Omeprazole 20 mg PO BID 07/24/18 [History] carvediloL [Carvedilol] 6.25 mg PO BID 07/24/18 [History] Alum Hydroxide/Mag Hydroxide [Mag-Al] 30 ml PO Q4H PRN cup 07/26/18 [Rx] Isosorbide Mononitrate [Imdur] 30 mg PO DAILY 07/26/18 [History] Albuterol [Proventil HFA] 1 puff INH QID PRN 11/06/18 [History] OLANZapine [Olanzapine] 20 mg PO DAILY 11/06/18 [History] buPROPion HCL [Wellbutrin Xl] 300 mg PO DAILY 11/06/18 [History] Acetaminophen 500 mg PO Q6H PRN 02/06/20 [History] Insulin Degludec [Tresiba] 65 unit SQ BEDTIME 02/06/20 [History] Lidocaine HCl/Menthol [Icy Hot 4%-1% Cream] 1 gm TP TID PRN 02/06/20 [History] Loratadine [Claritin] 10 mg PO DAILY PRN 02/06/20 [History] Magnesium Oxide 400 mg PO BID 02/06/20 [History] Aspirin [Aspirin EC] 81 mg PO DAILY 03/02/20 [History] Past Medical History HEENT History: Reports: None Cardiovascular History: Reports: High Cholesterol, Hypertension, [place] Respiratory History: Reports: SOB Gastrointestinal History: Reports: Cirrhosis, Gastritis, GERD Genitourinary History: Reports: BPH, Renal Disease Musculoskeletal History: Reports: Fracture, Other (See Below) Other Musculoskeletal History: muscle weakness Neurological History: Reports: CVA, TIA, Other (See Below) Other Neuro History: TBI. personality disorder Psychiatric History: Reports: Addiction, Anxiety, Depression Other Psychiatric History: insomnia Endocrine/Metabolic History: Reports: Diabetes, Type II, Obesity/BMI 30+ Hematologic History: Reports: B12 Deficiency Immunologic History: Reports: None Oncologic (Cancer) History: Reports: None Dermatologic History: Reports: Decubitus Ulcer, Other (See Below) Other Dermatologic History: 3rd r. toe - Infectious Disease History Infectious Disease History: Reports: MRSA - Past Surgical History Head Surgeries/Procedures: Reports: None GI Surgical History: Reports: Other (See Below) Musculoskeletal Surgical History: Reports: Shoulder Surgery Social & Family History - Family History Family Medical History: Noncontributory Endocrine/Metabolic: Reports: Diabetes, type II - Caffeine Use Caffeine Use: Reports: None ED ROS GENERAL - Review of Systems Review Of Systems: See Below Constitutional: Reports: Fatigue. Denies: Fever, Chills, Diaphoresis Respiratory: Denies: No Symptoms, Shortness of Breath Cardiovascular: Denies: No Symptoms, Chest Pain Endocrine: Reports: Low Glucose GI/Abdominal: Denies: Nausea, Vomiting Neurological: Reports: No Symptoms ED EXAM, GENERAL - Physical Exam Exam: See Below Exam Limited By: No Limitations General Appearance: Alert, WD/WN, No Apparent Distress Nose: Normal Inspection Throat/Mouth: Normal Inspection, No Airway Compromise Head: Atraumatic, Normocephalic Respiratory/Chest: No Respiratory Distress, Lungs Clear, Normal Breath Sounds Cardiovascular: Normal Peripheral Pulses, Regular Rate, Rhythm Peripheral Pulses: 2+: Radial (L), Radial (R) GI/Abdominal: Normal Bowel Sounds, Soft, Non-Tender Back Exam: Normal Inspection Extremities: Normal Inspection Neurological: Alert, Oriented Psychiatric: Normal Affect, Normal Mood Skin Exam: Warm, Dry, Intact Course - Vital Signs Last Recorded V/S: Last Vital Signs Temp 96.0 F L 03/02/20 01:30 Pulse 72 03/02/20 02:15 Resp 18 03/02/20 02:15 BP 94/60 03/02/20 02:15 Pulse Ox 97 03/02/20 02:15 - Re-Assessments/Exams Free Text/Narrative Re-Assessment/Exam: 03/02/20 12:35 Patient was given a couple glasses of orange juice blood sugar went up into the 90s. He had no hypotension on arrival. There was only one time he had blood pressure low with which the alf it read systolically 69/40s, all the other blood pressures were in the upper 90s to low 100s systolic, at the alf during transfer and at the emergency room. I wonder if that blood pressure was an inaccurate reading. Patient's blood sugar was low at the alf it was in the 50s and 60s. It has gradually been trending up after patient was given some orange juice. The blood sugar has been checked multiple times throughout the emergency stay and has not dropped. He does have some history of hypoglycemic episodes looks like his blood sugar medicine was recently adjusted to decrease to prevent that. He also had concerns of wanting to be transferred to the [facility] in [place]. He says since he was here he was hoping for me to sign a paper so he could be transferred from [facility] to the [facility] in [place]. Not quite sure why he wants to go there however the patient says he wants to go there to live. The patient is very much alert and orientated x4 and I am not sure why he has this request. He is going to follow-up with his nursing staff tomorrow morning and address his concerns. The patient denies any suicidal/homicidal ideation or behavioral changes. Patient discharged back to alf by alf transit vehicle in stable improved condition. 03/02/20 12:38 Departure - Departure Time of Disposition: 02:01 Disposition: DC/Tfer to SNF 03 Condition: Good Clinical Impression: Hypoglycemia Hypotension Qualifiers: Hypotension type: unspecified hypotension type Qualified Code(s): I95.9 - Hypotension, unspecified - Discharge Information *PRESCRIPTION DRUG MONITORING PROGRAM REVIEWED*: No *COPY OF PRESCRIPTION DRUG MONITORING REPORT IN PATIENT ANDREI: No Instructions: Hypotension, [id number], Hypoglycemia Referrals: Marcie Aguirre, WORKERS COMPENSATION CLAIMS ANALYST [Primary Care Provider] - Forms: ED Department Discharge Additional Instructions: please contact your alf staff about your requests in the morning. Sepsis Event Note (ED) - Focused Exam Vital Signs: Vital Signs Temp Pulse Resp BP Pulse Ox 03/02/20 02:15 72 18 94/60 97 03/02/20 02:00 71 18 91/63 97 03/02/20 01:40 69 18 97/64 96 03/02/20 01:30 96.0 F L 68 18 102/66 97
[2020-03-02 02:24] VITALS: BP 94/60; PULSE 72
== END 2020-03-02 02:50 ==
LOC: KA.ED 01:25
DX: E11.649 Type 2 diabetes mellitus with hypoglycemia without coma (principal); I95.9 Hypotension, unspecified; I10 Essential (primary) hypertension; I25.2 Old myocardial infarction; F41.9 Anxiety disorder, unspecified; F32.9 Major depressive disorder, single episode, unspecified; E66.9 Obesity, unspecified; Z68.30 Body mass index [BMI] 30.0-30.9, adult; Z91.018 Allergy to other foods; K21.9 Gastro-esophageal reflux disease without esophagitis; Z79.82 Long term (current) use of aspirin; Z79.4 Long term (current) use of insulin; Z86.73 Personal history of transient ischemic attack (TIA), and cerebral infarction without residual deficits
CPT/HCPCS: 82962; 99284; 99285

== ENCOUNTER 2020-10-24 02:26 | Emergency (ER) | payer MEDICARE, MEDICAID ==
[2020-10-24] MEDS ORDERED: Acetaminophen 325 MG Tab ONE (03:11)
[2020-10-24] MEDS ORDERED: Acetaminophen 325 MG Tab PO ONE (03:12)
--- NOTE | 2020-10-24 03:13 | EDM.PDOC ---
ED HPI GENERAL MEDICAL PROBLEM - General Chief Complaint: General Stated Complaint: fall , reports hitting his head Time Seen by Provider: 10/24/20 03:05 Source of Information: Reports: Patient, [facility] Records History Limitations: Reports: No Limitations - History of Present Illness INITIAL COMMENTS - FREE TEXT/NARRATIVE: Patient presents with EMS from [facility] for a fall which occurred tonight. Patient was in bed and he was attempting to get into his nearby wheelchair watching TV. Patient does not normally walk anymore. The patient fell onto his left shoulder and left hip. Patient did hit the ground with his left shoulder taken the brunt of the fall in his left hip and then hit his head. No loss of conscious patient said he laid that lasted 5 minutes at the [facility] staff or get him out. Patient does not take any anticoagulants. He has no other injury. Patient rates his pain moderate to his left shoulder and mild to the left hip. His main concern is his shoulder. No neck pain or back pain. Patient does have a cam boot on his left foot for previous existing decubitus ulcer. - Related Data Allergies Allergy/AdvReac Type Severity Reaction Status Date / Time mustard Allergy Vomiting Verified 10/24/20 02:51 No Known Drug Allergies Allergy Cannot Verified 10/24/20 02:51 Remember Home Meds: Home Meds metFORMIN [Glucophage] 1,000 mg PO BID 08/25/15 [History] Nitroglycerin 0.4 mg SL ASDIRECTED PRN 07/31/17 [History] Omeprazole 20 mg PO BID 07/24/18 [History] carvediloL [Carvedilol] 6.25 mg PO BID 07/24/18 [History] Alum Hydroxide/Mag Hydroxide [Mag-Al] 30 ml PO Q4H PRN cup 07/26/18 [Rx] Isosorbide Mononitrate [Imdur] 30 mg PO DAILY 07/26/18 [History] Albuterol [Proventil HFA] 1 puff INH QID PRN 11/06/18 [History] OLANZapine [Olanzapine] 20 mg PO DAILY 11/06/18 [History] buPROPion HCL [Wellbutrin Xl] 300 mg PO DAILY 11/06/18 [History] Acetaminophen 500 mg PO Q6H PRN 02/06/20 [History] Insulin Degludec [Tresiba] 65 unit SQ BEDTIME 02/06/20 [History] Lidocaine HCl/Menthol [Icy Hot 4%-1% Cream] 1 gm TP TID PRN 02/06/20 [History] Loratadine [Claritin] 10 mg PO DAILY PRN 02/06/20 [History] Magnesium Oxide 400 mg PO BID 02/06/20 [History] Aspirin [Aspirin EC] 81 mg PO DAILY 03/02/20 [History] Past Medical History HEENT History: Reports: None Cardiovascular History: Reports: High Cholesterol, Hypertension, [place] Respiratory History: Reports: SOB Gastrointestinal History: Reports: Cirrhosis, Gastritis, GERD Genitourinary History: Reports: BPH, Renal Disease Musculoskeletal History: Reports: Fracture, Other (See Below) Other Musculoskeletal History: muscle weakness Neurological History: Reports: CVA, TIA, Other (See Below) Other Neuro History: TBI. personality disorder Psychiatric History: Reports: Addiction, Anxiety, Depression Other Psychiatric History: insomnia Endocrine/Metabolic History: Reports: Diabetes, Type II, Obesity/BMI 30+ Hematologic History: Reports: B12 Deficiency Immunologic History: Reports: None Oncologic (Cancer) History: Reports: None Dermatologic History: Reports: Decubitus Ulcer, Other (See Below) Other Dermatologic History: 3rd r. toe - Infectious Disease History Infectious Disease History: Reports: MRSA - Past Surgical History Head Surgeries/Procedures: Reports: None GI Surgical History: Reports: Other (See Below) Musculoskeletal Surgical History: Reports: Shoulder Surgery Social & Family History - Family History Family Medical History: No Pertinent Family History Endocrine/Metabolic: Reports: Diabetes, type II - Caffeine Use Caffeine Use: Reports: None ED ROS GENERAL - Review of Systems Review Of Systems: See Below Constitutional: Reports: No Symptoms HEENT: Reports: No Symptoms Respiratory: Reports: No Symptoms. Denies: Shortness of Breath Cardiovascular: Reports: No Symptoms. Denies: Chest Pain Endocrine: Reports: Other (hx of T2DM) GI/Abdominal: Reports: No Symptoms. Denies: Nausea, Vomiting Musculoskeletal: Reports: Arm Pain, Other (left hip pain) Skin: Reports: No Symptoms. Denies: Wound Neurological: Denies: Confusion, Dizziness, Headache, Numbness, Syncope, Weakness, Change in Speech ED EXAM, GENERAL - Physical Exam Exam: See Below Exam Limited By: No Limitations General Appearance: Alert, WD/WN, No Apparent Distress Eye Exam: Bilateral Eye: EOMI, PERRL Ear Exam: Bilateral Ear: TM normal Nose: Normal Inspection, No Blood Throat/Mouth: Normal Inspection, Normal Oropharynx, Normal Voice Head: Atraumatic, Normocephalic Neck: Normal Inspection, Supple, Non-Tender, Full Range of Motion Respiratory/Chest: No Respiratory Distress, Lungs Clear, Normal Breath Sounds Cardiovascular: Normal Peripheral Pulses, Regular Rate, Rhythm, No Murmur Peripheral Pulses: 2+: Radial (L), Radial (R) Back Exam: Normal Inspection, Full Range of Motion Extremities: Normal Inspection, Normal Range of Motion, Leg Pain, Other (left hip pain, no limited ROM to hips or legs. ) Neurological: Alert, Oriented, CN II-XII Intact, Normal Cognition, No Motor/Sensory Deficits, Other (unable to assess gait, he does not ambulate at baseline) Psychiatric: Normal Affect, Normal Mood Skin Exam: Warm, Dry, Intact Course - Vital Signs Last Recorded V/S: Last Vital Signs Temp 96.9 F 10/24/20 02:31 Pulse 65 10/24/20 02:31 Resp 16 10/24/20 02:31 BP 153/79 H 10/24/20 02:31 Pulse Ox 98 10/24/20 02:31 - Orders/Labs/Meds Orders: Active Orders 24 hr Category Date Time Status Blood Glucose Check, Bedside [RC] ONETIME Care 10/24/20 02:44 Active Hip Min 1V w Pelvis Lt [CR] Stat Exams 10/24/20 03:01 Ordered Shoulder Comp Lt [CR] Stat Exams 10/24/20 02:43 Ordered Labs: Laboratory Tests 10/24/20 Range/Units 02:35 POC Glucose 266 H (70-140) mg/dL - Re-Assessments/Exams Free Text/Narrative Re-Assessment/Exam: 10/24/20 03:17 X-rays obtained of the shoulder and hip and pelvis. Patient was given 650 mg Tylenol. No signs of acute fracture from the injury. Patient does not take anticoagulants patient has no neurological deficits. Patient going to be sent home back to [facility] close monitoring vital checks every 4 hours neurological checks for 4 hours. Departure - Departure Time of Disposition: 03:16 Disposition: DC/Tfer to SNF 03 Condition: Good Clinical Impression: Left hip pain Left shoulder pain Qualifiers: Chronicity: acute Qualified Code(s): M25.512 - Pain in left shoulder Shoulder contusion Qualifiers: Encounter type: initial encounter Laterality: left Qualified Code(s): S40.012A - Contusion of left shoulder, initial encounter - Discharge Information *PRESCRIPTION DRUG MONITORING PROGRAM REVIEWED*: No *COPY OF PRESCRIPTION DRUG MONITORING REPORT IN PATIENT ANDREI: No Instructions: Shoulder Pain Referrals: Sowmya Lassiter MD [Primary Care Provider] - Additional Instructions: have provider f/u with him on rounds this coming week for recheck he was given tylenol for pain. neuro check every 4 hours for the next 24 hours. Sepsis Event Note (ED) - Evaluation Sepsis Screening Result: No Definite Risk - Focused Exam Vital Signs: Vital Signs Temp Pulse Resp BP Pulse Ox 10/24/20 02:31 96.9 F 65 16 153/79 H 98 - My Orders Last 24 Hours: My Active Orders 10/24/20 02:43 Shoulder Comp Lt [CR] Stat 10/24/20 02:44 Blood Glucose Check, Bedside [RC] ONETIME 10/24/20 03:01 Hip Min 1V w Pelvis Lt [CR] Stat - Assessment/Plan Last 24 Hours: My Active Orders 10/24/20 02:43 Shoulder Comp Lt [CR] Stat 10/24/20 02:44 Blood Glucose Check, Bedside [RC] ONETIME 10/24/20 03:01 Hip Min 1V w Pelvis Lt [CR] Stat
[2020-10-24 04:02] VITALS: BP 145/76; PULSE 62
--- NOTE | 2020-10-24 08:18 | CR ---
[id number] RAD/RAD Pelvis W Left Lateral Hip Exam: RAD Pelvis W Left Lateral Hip Clinical Data: TRAUMA COMPARISON: NO PREVIOUS SIMILAR EXAM IS AVAILABLE FINDINGS: No fracture or dislocation is seen IMPRESSION: NEGATIVE EXAM Elbert Fierro MD 10/24/20 [id number] Thank you for allowing us to participate in the care of your patient.
--- NOTE | 2020-10-24 08:33 | CR ---
[id number] RAD/RAD Shoulder Left 2V Min EXAM: 3 VIEWS LEFT SHOULDER. INDICATION: FALL COMPARISON: None. DISCUSSION: No fracture, dislocation or other acute osseous abnormality. Stable postsurgical changes following internal fixation of the left proximal humerus. No evidence of hardware failure or loosening. Old healed fracture involving the distal left clavicle. Heterotopic ossification along the coracoclavicular ligaments. No radiodense foreign bodies. IMPRESSION: 1. No acute fracture or dislocation. Gustabo Worthington DO 10/24/20 0831 Thank you for allowing us to participate in the care of your patient.
== END 2020-10-24 04:30 ==
LOC: KA.ED 02:26
DX: S40.012A Contusion of left shoulder, initial encounter (principal); M25.552 Pain in left hip; I10 Essential (primary) hypertension; I25.2 Old myocardial infarction; K21.9 Gastro-esophageal reflux disease without esophagitis; E11.9 Type 2 diabetes mellitus without complications; E66.9 Obesity, unspecified; Z68.1 Body mass index [BMI] 19.9 or less, adult; Z91.018 Allergy to other foods; Z79.4 Long term (current) use of insulin; Z79.82 Long term (current) use of aspirin; Z79.899 Other long term (current) drug therapy; W01.198A Fall on same level from slipping, tripping and stumbling with subsequent striking against other object, initial encounter; Y92.129 Unspecified place in nursing home as the place of occurrence of the external cause
CPT/HCPCS: 73030; 73501; 82947; 99284; A9270

== ENCOUNTER 2020-12-13 04:34 | Emergency (ER) | payer MEDICARE, MEDICAID ==
[2020-12-13] MEDS ORDERED: Sodium Chloride 0.9% 10 ML Syringe FLUSH PRN (04:57)
--- NOTE | 2020-12-13 05:00 | EDM.PDOC ---
ED HPI GENERAL MEDICAL PROBLEM - General Chief Complaint: Cardiovascular Problem Stated Complaint: Chest Pain Time Seen by Provider: 12/13/20 04:45 Source of Information: Reports: Patient History Limitations: Reports: No Limitations - History of Present Illness INITIAL COMMENTS - FREE TEXT/NARRATIVE: 65 YO WM PRESENTS TO ER BY EMS FROM [facility] WITH COMPLAINTS OF LEFT SIDED CHEST PAIN WHICH BEGAN TONIGHT. PT REPORTS LEFT SIDED PAIN WITH ASSOCIATED PRODUCTIVE COUGH AND MILD SHORTNESS OF BREATH. PT REPORTS HISTORY OF PNEUMONIA 1 YEAR AGO WITH SIMILAR SYMPTOMS. PT DENIES FEVER/CHILLS, NO NAUSEA/VOMITING, NO DIAPHORESIS AND NO RESPIRATORY DISTRESS. PT WAS GIVEN NITRO SL X 3 AND ASA 324MG PRIOR TO ARRIVAL IN ER. PT ALERT AND IN NAD. Duration: Day(s): (3) Location: Reports: Chest Quality: Reports: Ache Severity: Moderate Improves with: Reports: None Worsens with: Reports: None Associated Symptoms: Reports: Chest Pain, cough w sputum, Shortness of Breath. Denies: Diaphoresis, Fever/Chills, Nausea/Vomiting Treatments ACCOUNTING REPRESENTATIVE: Reports: Aspirin, Nitroglycerin Left Chest Pain Score (Numeric/FACES): 6 - Related Data Allergies Allergy/AdvReac Type Severity Reaction Status Date / Time mustard Allergy Vomiting Verified 12/13/20 04:49 No Known Drug Allergies Allergy Cannot Verified 12/13/20 04:49 Remember Home Meds: Home Meds metFORMIN [Glucophage] 1,000 mg PO BID 08/25/15 [History] Nitroglycerin 0.4 mg SL ASDIRECTED PRN 07/31/17 [History] carvediloL [Carvedilol] 6.25 mg PO BID 07/24/18 [History] Alum Hydroxide/Mag Hydroxide [Mag-Al] 30 ml PO Q4H PRN cup 07/26/18 [Rx] Isosorbide Mononitrate [Imdur] 30 mg PO DAILY 07/26/18 [History] Loratadine [Claritin] 10 mg PO DAILY 02/06/20 [History] Magnesium Oxide 400 mg PO BID 02/06/20 [History] Aspirin [Aspirin EC] 81 mg PO DAILY 03/02/20 [History] Acetaminophen 650 mg PO DAILY PRN 10/24/20 [History] Acetaminophen 650 mg PO TID 10/24/20 [History] Ammonium Lactate [Amlactin 12% Lotion] 1 applic TOP BEDTIME 10/24/20 [History] Bisacodyl [Gentle Laxative] 10 mg RC DAILY PRN 10/24/20 [History] Loperamide HCl [Imodium A-D] 2 mg PO Q8H PRN 10/24/20 [History] Multivitamin with Minerals [Multivitamins with Minerals] 1 each PO DAILY 10/24/20 [History] OLANZapine [Olanzapine] 10 mg PO BEDTIME 10/24/20 [History] OLANZapine [Olanzapine] 20 mg PO DAILY 10/24/20 [History] Pantoprazole [ProTONIX] 40 mg PO BID 10/24/20 [History] Tresiba Flextouch U-200 24 units SQ BEDTIME 10/24/20 [History] Zinc 50 mg PO DAILY 10/24/20 [History] fluvoxaMINE [fluvoxaMINE Maleate] 150 mg PO BEDTIME 10/24/20 [History] polyethylene glycoL 3350 [MiraLAX] 17 gm PO DAILY 10/24/20 [History] Amino Acids/Protein Hydrolys [Liquacel Liquid Protein Packet] 30 ml PO BID 12/13/20 [History] Magnesium Hydroxide [Milk of Magnesia] 30 ml PO ASDIRECTED PRN 12/13/20 [History] Past Medical History HEENT History: Reports: None Cardiovascular History: Reports: High Cholesterol, Hypertension, [place] Respiratory History: Reports: SOB Gastrointestinal History: Reports: Cirrhosis, Gastritis, GERD Genitourinary History: Reports: BPH, Renal Disease Musculoskeletal History: Reports: Fracture, Other (See Below) Other Musculoskeletal History: muscle weakness Neurological History: Reports: CVA, TIA, Other (See Below) Other Neuro History: TBI. personality disorder Psychiatric History: Reports: Addiction, Anxiety, Depression Other Psychiatric History: insomnia Endocrine/Metabolic History: Reports: Diabetes, Type II, Obesity/BMI 30+ Hematologic History: Reports: B12 Deficiency Immunologic History: Reports: None Oncologic (Cancer) History: Reports: None Dermatologic History: Reports: Decubitus Ulcer, Other (See Below) Other Dermatologic History: 3rd r. toe - Infectious Disease History Infectious Disease History: Reports: Influenza, MRSA - Past Surgical History Head Surgeries/Procedures: Reports: None Respiratory Surgical History: Reports: None GI Surgical History: Reports: Other (See Below) Other GI Surgeries/Procedures: "surgery to repair holes in intestine" Male Surgical History: Reports: None Endocrine Surgical History: Reports: None Neurological Surgical History: Reports: None Musculoskeletal Surgical History: Reports: Shoulder Surgery Dermatological Surgical History: Reports: None Social & Family History - Family History Family Medical History: No Pertinent Family History Endocrine/Metabolic: Reports: Diabetes, type II - Caffeine Use Caffeine Use: Reports: Soda, Tea ED ROS GENERAL - Review of Systems Review Of Systems: See Below Constitutional: Reports: No Symptoms HEENT: Reports: No Symptoms Respiratory: Reports: Cough Cardiovascular: Reports: Chest Pain Endocrine: Reports: No Symptoms GI/Abdominal: Reports: No Symptoms Musculoskeletal: Reports: No Symptoms Skin: Reports: No Symptoms Neurological: Reports: No Symptoms Psychiatric: Reports: No Symptoms Hematologic/Lymphatic: Reports: No Symptoms Immunologic: Reports: No Symptoms ED EXAM, GENERAL - Physical Exam Exam: See Below Exam Limited By: No Limitations General Appearance: Alert, WD/WN, No Apparent Distress Respiratory/Chest: No Respiratory Distress, No Accessory Muscle Use, Chest Non-Tender, Rhonchi Cardiovascular: Normal Peripheral Pulses, Regular Rate, Rhythm, No Edema, No Gallop, No JVD, No Murmur, No Rub GI/Abdominal: Normal Bowel Sounds, Soft, Non-Tender, No Organomegaly, No Distention, No Abnormal Bruit, No Mass Back Exam: Normal Inspection, Full Range of Motion, NT Extremities: Normal Inspection, Normal Range of Motion, Non-Tender, Normal Capillary Refill, No Pedal Edema #1 Interpretation EKG Date: 12/13/20 Time: 04:40 Rhythm: NSR Rate (Beats/Min): 61 [place]: LAD-Left [place] Deviation P-Wave: Present QRS: Normal ST-T: Normal QT: Normal Course - Vital Signs Last Recorded V/S: Last Vital Signs Temp 96.9 F 12/13/20 04:45 Pulse 55 L 12/13/20 06:45 Resp 18 12/13/20 06:45 BP 173/86 H 12/13/20 06:45 Pulse Ox 98 12/13/20 06:45 - Orders/Labs/Meds Labs: Laboratory Tests 12/13/20 12/13/20 12/13/20 Range/Units 05:00 05:00 05:00 WBC 5.71 (5.00-10.00) 10^3/uL RBC 4.07 L (4.50-6.00) 10^6/uL Hgb 10.4 L (13.0-17.0) g/dL Hct 32.5 L (40.0-52.0) % MCV 79.9 L (82.0-92.0) fL MCH 25.6 L (27.0-31.0) pg MCHC 32.0 (32.0-36.0) g/dL RDW 15.2 H (11.5-14.5) % Plt Count 165 (150-400) 10^3/uL MPV 9.3 (7.4-10.4) fL Immature Gran % (Auto) 0.5 (0.0-5.0) % Neut % (Auto) 51.2 (50.0-70.0) % Lymph % (Auto) 30.6 (20.0-40.0) % [place] % (Auto) 9.1 H (2.0-8.0) % Eos % (Auto) 8.1 H (1.0-3.0) % Baso % (Auto) 0.5 (0.0-1.0) % Neut # (Auto) 2.92 (2.50-7.00) 10^3/uL Lymph # (Auto) 1.75 (1.00-4.00) 10^3/uL [place] # (Auto) 0.52 (0.10-0.80) 10^3/uL Eos # (Auto) 0.46 H (0.10-0.30) 10^3/uL Baso # (Auto) 0.03 (0.00-0.10) 10^3/uL Immature Gran # (Auto) 0.03 (0.00-0.50) 10^3/uL Sodium 143 (136-145) mmol/L Potassium 4.6 (3.5-5.1) mmol/L Chloride 107 (98-107) mmol/L Carbon Dioxide 27.1 (21.0-32.0) mmol/L Anion Gap 13.5 (5-15) mmol/L BUN 33 H (7-18) mg/dL Creatinine 1.05 (0.51-1.17) mg/dL Est Cr Clr Drug Dosing TNP Estimated GFR (MDRD) > 60 mL/min Glucose 91 (70-140) mg/dL Lactic Acid 1.1 (0.4-2.0) mmol/L Calcium 8.5 L (8.7-10.3) mg/dL Total Bilirubin 0.2 (0.2-1.0) mg/dL AST 17 (15-37) U/L ALT 19 (14-63) U/L Alkaline Phosphatase 81 (46-116) U/L Creatine Kinase 30 (26-276) U/L CK-MB (CK-2) 0.60 (0.00-3.60) ng/mL Troponin I High Sens 6.200 (0-76.000) pg/mL B-Natriuretic Peptide (0-100) pg/mL Total Protein 8.1 (6.4-8.2) g/dL Albumin 3.25 L (3.40-5.00) g/dL 12/13/20 Range/Units 05:00 WBC (5.00-10.00) 10^3/uL RBC (4.50-6.00) 10^6/uL Hgb (13.0-17.0) g/dL Hct (40.0-52.0) % MCV (82.0-92.0) fL MCH (27.0-31.0) pg MCHC (32.0-36.0) g/dL RDW (11.5-14.5) % Plt Count (150-400) 10^3/uL MPV (7.4-10.4) fL Immature Gran % (Auto) (0.0-5.0) % Neut % (Auto) (50.0-70.0) % Lymph % (Auto) (20.0-40.0) % [place] % (Auto) (2.0-8.0) % Eos % (Auto) (1.0-3.0) % Baso % (Auto) (0.0-1.0) % Neut # (Auto) (2.50-7.00) 10^3/uL Lymph # (Auto) (1.00-4.00) 10^3/uL [place]aton # (Auto) (0.10-0.80) 10^3/uL Eos # (Auto) (0.10-0.30) 10^3/uL Baso # (Auto) (0.00-0.10) 10^3/uL Immature Gran # (Auto) (0.00-0.50) 10^3/uL Sodium (136-145) mmol/L Potassium (3.5-5.1) mmol/L Chloride (98-107) mmol/L Carbon Dioxide (21.0-32.0) mmol/L Anion Gap (5-15) mmol/L BUN (7-18) mg/dL Creatinine (0.51-1.17) mg/dL Est Cr Clr Drug Dosing Estimated GFR (MDRD) mL/min Glucose (70-140) mg/dL Lactic Acid (0.4-2.0) mmol/L Calcium (8.7-10.3) mg/dL Total Bilirubin (0.2-1.0) mg/dL AST (15-37) U/L ALT (14-63) U/L Alkaline Phosphatase (46-116) U/L Creatine Kinase (26-276) U/L CK-MB (CK-2) (0.00-3.60) ng/mL Troponin I High Sens (0-76.000) pg/mL B-Natriuretic Peptide 84 (0-100) pg/mL Total Protein (6.4-8.2) g/dL Albumin (3.40-5.00) g/dL Meds: Medications Discontinued Medications Generic Name Dose Route Start Last Admin Trade Name Freq PRN Reason Stop Dose Admin Albuterol/Ipratropium 3 ml 12/13/20 05:08 12/13/20 05:23 Albuterol/Ipratropium 3.0-0.5 Mg/3 Ml Neb Soln NEB 12/13/20 05:09 3 ml ONETIME ONE Administration Amoxicillin/Clavulanate Potassium 1 tab 12/13/20 06:11 12/13/20 06:56 Amoxicillin/Clavulanate K 875-125 Mg Tab PO 12/13/20 06:12 1 tab ONETIME ONE Administration Sodium Chloride 10 ml 12/13/20 04:57 12/13/20 05:10 Sodium Chloride 0.9% 10 Ml Syringe FLUSH 10 ml Q8HR PRN Administration keep vein open Departure - Departure Time of Disposition: 06:14 Disposition: DC/Tfer to SNF 03 Reason for Transfer *Q: Other Condition: Good Clinical Impression: Pneumonia Qualifiers: Pneumonia type: due to unspecified organism Laterality: left Lung location: lower lobe of lung Qualified Code(s): J18.9 - Pneumonia, unspecified organism Chest pain Qualifiers: Chest pain type: unspecified Qualified Code(s): R07.9 - Chest pain, unspecified Instructions: Community-Acquired Pneumonia, Adult Referrals: Nataly Lassiter MD [Primary Care Provider] - Forms: ED Department Discharge Additional Instructions: 1. DISCHARGE HOME- DISCUSSED WITH DR MIRELLA PRATT WHO RECOMMENDED TREATMENT OUTPATIENT WITH AUGMENTIN 875MG, DUONEB Q6 AND FOLLOW UP IN [facility] THIS WEEK BY DR NATALY LASSITER 2. SUPPORTIVE CARE 3. RETURN TO ER FOR SAO2 LESS THAN 92% OR WORSENING SYMPTOMS 4. AUGMENTIN 875MG TWICE/DAY X 10DAYS 5. DUONEB EVERY 6 HOURS NEEDED FOR SHORTNESS OF BREATH OR COUGH - Assessment/Plan Assessment:: 1. left basilar pneumonia Plan: 1. DISCHARGE HOME- DISCUSSED WITH DR MIRELLA PRATT WHO RECOMMENDED TREATMENT OUTPATIENT WITH AUGMENTIN 875MG, DUONEB Q6 AND FOLLOW UP IN [facility] THIS WEEK BY DR NATALY LASSITER 2. SUPPORTIVE CARE 3. RETURN TO ER FOR SAO2 LESS THAN 92% OR WORSENING SYMPTOMS 4. AUGMENTIN 875MG TWICE/DAY X 10DAYS 5. DUONEB EVERY 6 HOURS NEEDED FOR SHORTNESS OF BREATH OR COUGH
[2020-12-13] MEDS ORDERED: Albuterol/Ipratropium 3.0-0.5 MG/3 ML Neb Soln NEB ONE (05:08)
[2020-12-13 05:39] LABS: ANION GAP 13.5 mmol/L (5-15); CHLORIDE,CL 107 mmol/L (98-107); SODIUM,NA 143 mmol/L (136-145)
[2020-12-13] MEDS ORDERED: Amoxicillin/Clavulanate K 875-125 MG Tab PO ONE (06:11)
[2020-12-13 07:06] VITALS: PULSE 55
[2020-12-13 07:07] VITALS: BP 173/86
--- NOTE | 2020-12-13 07:59 | CR ---
[id number] RAD/RAD Chest PA or AP 1V EXAM: FRONTAL CHEST INDICATION: PAIN. COMPARISON: December 12, 2019. DISCUSSION: Hypoinflation with central vascular crowding and basilar atelectasis. These changes could obscure infiltrates and other findings. Stable cardiomegaly with interval improvement in central vascular congestion. No effusions. Partially imaged left humerus fixation. Chronic healed right rib fractures. IMPRESSION: 1. Low lung volumes. No definite acute findings. Moy Ramos MD 12/13/20 0756 Thank you for allowing us to participate in the care of your patient.
== END 2020-12-13 08:00 ==
LOC: KA.ED 04:34 → SUPCPDRO 04:34 → KA.ED 08:00
DX: J18.9 Pneumonia, unspecified organism (principal); E78.00 Pure hypercholesterolemia, unspecified; I10 Essential (primary) hypertension; I25.2 Old myocardial infarction; K21.9 Gastro-esophageal reflux disease without esophagitis; E11.9 Type 2 diabetes mellitus without complications; E66.9 Obesity, unspecified; Z68.30 Body mass index [BMI] 30.0-30.9, adult; Z91.018 Allergy to other foods; Z79.82 Long term (current) use of aspirin; Z79.899 Other long term (current) drug therapy
CPT/HCPCS: 36415; 71045; 80053; 82550; 82553; 83605; 83880; 84484; 85025; 87040; 93005; 94640; 99284; 99285-25; A9270-GY; J7620-GY

== ENCOUNTER 2021-05-26 02:17 | Inpatient (IN) | payer MEDICARE, MEDICAID ==
[2021-05-26] MEDS ORDERED: Sodium Chloride 0.9% 10 ML Syringe FLUSH PRN (02:52)
[2021-05-26 03:53] LABS: ANION GAP 13.8 mmol/L (5-15); CHLORIDE,CL 96 mmol/L (98-107); SODIUM,NA 130 mmol/L (136-145)
[2021-05-26] MEDS: Sodium Chloride 0.9% 1,000 ML IV SCH ×5 (04:15→21:00)
[2021-05-26 04:27] LABS: CORONAVIRUS COVID-19 NAA NEGATIVE (NEGATIVE)
[2021-05-26] MEDS ORDERED: cefTRIAXone 2 GM Vial IVPUSH ONE (04:44)
[2021-05-26] MEDS: Acetaminophen 325 MG Tab PO PRN ×4 (08:15→23:33)
[2021-05-26] MEDS ORDERED: Sodium Chloride 0.9% 500 ML IV ONE (09:50)
[2021-05-26] MEDS ORDERED: Bisacodyl 10 MG Supp RECTAL PRN (09:51)
[2021-05-26] MEDS ORDERED: Magnesium Hydroxide 400 MG/5 ML Susp 30 ML Cup PO PRN (09:51)
[2021-05-26] MEDS ORDERED: Polyethylene Glycol 3350 Powder 17 GM Packet PO SCH (10:00)
[2021-05-26] MEDS ORDERED: Glucagon,Human Recombinant 1 MG Vial IM PRN (10:33)
[2021-05-26] MEDS ORDERED: 50% Dextrose in Water 50 ML Syringe IVPUSH PRN (10:33)
[2021-05-26] MEDS ORDERED: Loperamide 2 MG Cap PO PRN (10:36)
[2021-05-26] MEDS ORDERED: Aluminum Hydroxide/Magnesium Hydroxide/Simethicone Susp 30 ML Cup PO PRN (10:42)
[2021-05-26] MEDS: Aspirin 81 MG Tab.EC PO SCH (11:00)
[2021-05-26] MEDS: Insulin Lispro 100 Unit/ML 3 ML KwikPen SUBCUT SCH ×2 (11:49→18:00)
[2021-05-26 16:00] LABS: ANION GAP 15.7 mmol/L (5-15)
[2021-05-26] MEDS ORDERED: Zinc (Zinc Gluconate) 50 MG Tab PO SCH (18:00)
[2021-05-26] MEDS ORDERED: Multivitamins with Minerals/Iron/Folic Acid/Lycopene Tab PO SCH (18:00)
[2021-05-26] MEDS: Magnesium Oxide 500 MG Tab PO SCH (20:54)
[2021-05-26] MEDS ORDERED: AMMONIUM LACTATE TOP SCH (21:00)
[2021-05-26] MEDS ORDERED: fluvoxaMINE 100 MG Tab PO SCH (21:00)
[2021-05-26] MEDS ORDERED: Insulin Glargine,Hum.Rec.Anlog 100 UNIT/ML 3 ML Pen SUBCUT SCH (21:00)
[2021-05-26] MEDS ORDERED: OLANZapine 5 MG Tab PO SCH (21:00)
[2021-05-26] MEDS: Cefepime 2 GM in Sodium Chloride 0.9% 50 ML IV SCH (21:36)
[2021-05-27] MEDS: Sodium Chloride 0.9% 1,000 ML IV SCH ×3 (03:35→16:15)
[2021-05-27] MEDS ORDERED: cefTRIAXone 1 GM Vial IVPUSH SCH (05:00)
[2021-05-27] MEDS: Cefepime 2 GM in Sodium Chloride 0.9% 50 ML IV SCH ×2 (05:18→15:41)
[2021-05-27] MEDS: Acetaminophen 325 MG Tab PO PRN ×3 (05:24→15:19)
[2021-05-27] MEDS ORDERED: Pantoprazole 40 MG Tab.CR PO SCH (07:30)
[2021-05-27 07:54] LABS: ANION GAP 14.6 mmol/L (5-15)
[2021-05-27] MEDS: Aspirin 81 MG Tab.EC PO SCH (08:00)
[2021-05-27] MEDS: Insulin Lispro 100 Unit/ML 3 ML KwikPen SUBCUT SCH ×2 (08:02→12:00)
[2021-05-27] MEDS: Magnesium Oxide 500 MG Tab PO SCH (08:03)
[2021-05-27] MEDS ORDERED: Loratadine 10 MG Tab PO SCH (09:00)
[2021-05-27] MEDS ORDERED: OLANZapine 5 MG Tab PO SCH (09:00)
[2021-05-27] MEDS ORDERED: Gentamicin 40 MG/ML 2 ML Vial IV SCH (10:30)
[2021-05-27 15:07] LABS: ANION GAP 14.6 mmol/L (5-15)
[2021-05-27] MEDS ORDERED: Sodium Chloride 0.9% 500 ML IV SCH (16:00)
[2021-05-27 17:07] VITALS: BP 91/57; PULSE 72
== END 2021-05-27 16:40 | DRG 872 ==
LOC: KA.ED 02:17 → KA.MS 05:10 → UNDOADMOB 05:36 → KA.MS 05:36 → OBSVTOIN 12:29
PROVIDERS: ADMIT Nurse Practitioner Family; ATTEND Family Medicine
DX: A41.9 Sepsis, unspecified organism (principal); N39.0 Urinary tract infection, site not specified; I95.9 Hypotension, unspecified; N17.9 Acute kidney failure, unspecified; D72.9 Disorder of white blood cells, unspecified; R50.9 Fever, unspecified; E87.8 Other disorders of electrolyte and fluid balance, not elsewhere classified; Z20.822 Contact with and (suspected) exposure to COVID-19; E78.00 Pure hypercholesterolemia, unspecified; I10 Essential (primary) hypertension; E66.9 Obesity, unspecified; E53.8 Deficiency of other specified B group vitamins; I25.10 Atherosclerotic heart disease of native coronary artery without angina pectoris; E78.5 Hyperlipidemia, unspecified; F41.1 Generalized anxiety disorder; F10.20 Alcohol dependence, uncomplicated; E83.42 Hypomagnesemia; I25.2 Old myocardial infarction; K21.9 Gastro-esophageal reflux disease without esophagitis; N40.0 Benign prostatic hyperplasia without lower urinary tract symptoms; N28.9 Disorder of kidney and ureter, unspecified; Z79.84 Long term (current) use of oral hypoglycemic drugs; Z86.73 Personal history of transient ischemic attack (TIA), and cerebral infarction without residual deficits; Z87.820 Personal history of traumatic brain injury; F41.9 Anxiety disorder, unspecified; F32.A Depression, unspecified; F03.90 Unspecified dementia, unspecified severity, without behavioral disturbance, psychotic disturbance, mood disturbance, and anxiety; G47.00 Insomnia, unspecified; E11.9 Type 2 diabetes mellitus without complications; Z86.16 Personal history of COVID-19; Z86.14 Personal history of Methicillin resistant Staphylococcus aureus infection; Z91.018 Allergy to other foods; Z79.82 Long term (current) use of aspirin; Z79.899 Other long term (current) drug therapy
CPT/HCPCS: 0240U; 36415; 71045; 80053; 81001; 82947; 83605; 83690; 84145; 85025; 87040; 87086; 87186; 93005; 93010; 96374; 99284; 99285-25; A9270-GY; J0692; J0696; J1580; J1815-GY; J7030

== ENCOUNTER 2021-08-10 05:52 | Emergency (ER) | payer MEDICARE, MEDICAID ==
[2021-08-10] MEDS ORDERED: Ondansetron 4 MG/2 ML SDV IVPUSH ONE (06:15)
[2021-08-10] MEDS ORDERED: Sodium Chloride 0.9% 1,000 ML IV ONE (06:17)
[2021-08-10] MEDS ORDERED: Sodium Chloride 0.9% 1,000 ML ONE (06:19)
[2021-08-10 07:04] LABS: ANION GAP 17.2 mmol/L (5-15); CHLORIDE,CL 105 mmol/L (98-107); SODIUM,NA 138 mmol/L (136-145)
[2021-08-10] MEDS ORDERED: Iopamidol 755 Mg/ML 75 ML Bottle IVPUSH ONE (07:47)
[2021-08-10] MEDS ORDERED: Sodium Chloride 0.9% 50 ML IV SCH (08:00)
[2021-08-10 10:40] VITALS: BP 159/86; PULSE 60
== END 2021-08-10 10:30 ==
LOC: KA.ED 05:52
DX: K59.00 Constipation, unspecified (principal); E78.00 Pure hypercholesterolemia, unspecified; I10 Essential (primary) hypertension; I25.2 Old myocardial infarction; K21.9 Gastro-esophageal reflux disease without esophagitis; E11.9 Type 2 diabetes mellitus without complications; Z68.31 Body mass index [BMI] 31.0-31.9, adult; Z91.018 Allergy to other foods; Z79.84 Long term (current) use of oral hypoglycemic drugs; Z79.82 Long term (current) use of aspirin; Z79.899 Other long term (current) drug therapy
CPT/HCPCS: 36415; 74177; 80053; 81001; 83690; 84484; 85025; 96374; 99285; J2405; J7030; Q9967; 99283

== ENCOUNTER 2021-10-19 10:14 | Emergency (ER) | payer MEDICARE, MEDICAID ==
[2021-10-19] MEDS ORDERED: Sodium Chloride 0.9% 10 ML Syringe FLUSH PRN (10:27)
[2021-10-19 10:50] VITALS: BP 125/74; PULSE 59
[2021-10-19 11:02] LABS: ANION GAP 14.6 mmol/L (5-15); CHLORIDE,CL 105 mmol/L (98-107); SODIUM,NA 139 mmol/L (136-145)
[2021-10-19 11:08] LABS: ESTIMATED GFR 54 mL/min (>=60)
[2021-10-19] MEDS: Sodium Chloride 0.9% 1,000 ML IV SCH (11:27)
== END 2021-10-19 16:50 ==
LOC: KA.ED 10:14
DX: E86.0 Dehydration (principal); E87.2 Acidosis; N18.9 Chronic kidney disease, unspecified; E78.00 Pure hypercholesterolemia, unspecified; I10 Essential (primary) hypertension; N40.0 Benign prostatic hyperplasia without lower urinary tract symptoms; I25.2 Old myocardial infarction; E11.9 Type 2 diabetes mellitus without complications; K21.9 Gastro-esophageal reflux disease without esophagitis; E66.9 Obesity, unspecified; Z68.30 Body mass index [BMI] 30.0-30.9, adult; Z86.73 Personal history of transient ischemic attack (TIA), and cerebral infarction without residual deficits; Z91.048 Other nonmedicinal substance allergy status; Z79.82 Long term (current) use of aspirin; Z79.899 Other long term (current) drug therapy
CPT/HCPCS: 36415; 71045; 80053; 81001; 82140; 83605; 83690; 84484; 85025; 87040; 87086; 93010; 96360; 96361; 99284; 99285-25; J7030

== ENCOUNTER 2022-07-15 21:25 | Inpatient (IN) | payer MEDICARE, MEDICAID ==
[2022-07-15] MEDS ORDERED: Sodium Chloride 0.9% 10 ML Syringe FLUSH PRN (21:46)
[2022-07-15] MEDS ORDERED: Ibuprofen 600 MG Tab PO ONE (22:01)
[2022-07-15] MEDS ORDERED: Sodium Chloride 0.9% 1,000 ML IV ONE ×2 (22:02→22:05)
[2022-07-15] MEDS ORDERED: Ondansetron 4 MG/2 ML SDV IVPUSH ONE (22:06)
[2022-07-15] MEDS ORDERED: Piperacillin/Tazobactam 4.5 GM in Sodium Chloride 0.9% 100 ML IV ONE (22:47)
[2022-07-15 22:57] LABS: RESPIRATORY SYNCYTIAL VIR NAA NEGATIVE (NEGATIVE)
[2022-07-15 22:58] LABS: CORONAVIRUS COVID-19 NAA NEGATIVE (NEGATIVE)
[2022-07-15] MEDS ORDERED: Acetaminophen 325 MG Tab PO PRN (23:42)
[2022-07-16] MEDS: Piperacillin/Tazobactam 4.5 GM in Sodium Chloride 0.9% 100 ML IV SCH ×4 (00:04→23:43)
[2022-07-16] MEDS ORDERED: Vancomycin 2 GM in Sodium Chloride 0.9% 500 ML IV ONE (00:30)
[2022-07-16] MEDS: Pantoprazole 40 MG Tab.CR PO SCH (06:34)
[2022-07-16] MEDS: Sodium Chloride 0.9% 100 ML IV SCH ×2 (06:53→17:12)
[2022-07-16] MEDS ORDERED: Omeprazole 20 MG Cap.CR PO SCH (07:30)
[2022-07-16 07:37] LABS: ANION GAP 13.1 mmol/L (5-15)
[2022-07-16] MEDS: metFORMIN 500 MG Tab PO SCH ×2 (08:53→17:13)
[2022-07-16] MEDS: Acetaminophen 325 MG Tab PO SCH ×4 (08:54→21:59)
[2022-07-16] MEDS: Aspirin 81 MG Tab.EC PO SCH (08:54)
[2022-07-16] MEDS: Isosorbide Mononitrate 30 MG Tab.ER PO SCH (08:55)
[2022-07-16] MEDS: OLANZapine 5 MG Tab PO SCH (08:56)
[2022-07-16] MEDS: atorvaSTATin 40 MG Tab PO SCH (08:56)
[2022-07-16] MEDS ORDERED: Aspirin 81 MG Tab.Chew PO SCH (09:00)
[2022-07-16] MEDS ORDERED: Nitroglycerin 0.4 MG Tab.SL SL PRN (11:58)
[2022-07-16] MEDS ORDERED: Lidocaine 2% 100 MG/5 ML Syringe IVPUSH PRN (11:58)
[2022-07-16] MEDS ORDERED: Atropine 0.1 MG/ML 10 ML Syringe IVPUSH PRN (11:58)
[2022-07-16] MEDS ORDERED: EPINEPHrine 1:10,000 1 MG/10 ML Syringe IVPUSH PRN (11:58)
[2022-07-16] MEDS: lamoTRIgine 100 MG Tab PO SCH (17:12)
[2022-07-16] MEDS: Magnesium Oxide 500 MG Tab PO SCH (21:58)
[2022-07-16] MEDS: fluvoxaMINE 50 MG Tab PO SCH (21:58)
[2022-07-16] MEDS: Melatonin 3 MG Tab PO SCH (21:58)
[2022-07-16] MEDS: Insulin Glargine,Hum.Rec.Anlog 100 UNIT/ML 3 ML Pen SUBCUT SCH (22:07)
[2022-07-16] MEDS: Sodium Chloride 0.9% 10 ML Syringe FLUSH PRN (23:45)
[2022-07-17] MEDS: metFORMIN 500 MG Tab PO SCH (07:48)
[2022-07-17] MEDS: Pantoprazole 40 MG Tab.CR PO SCH (07:48)
[2022-07-17] MEDS: Piperacillin/Tazobactam 4.5 GM in Sodium Chloride 0.9% 100 ML IV SCH ×3 (07:51→23:01)
[2022-07-17] MEDS: Isosorbide Mononitrate 30 MG Tab.ER PO SCH (08:04)
[2022-07-17] MEDS: Aspirin 81 MG Tab.EC PO SCH (08:07)
[2022-07-17] MEDS: Acetaminophen 325 MG Tab PO SCH ×4 (08:08→21:25)
[2022-07-17] MEDS: Ascorbic Acid 500 MG Tab PO SCH (08:09)
[2022-07-17] MEDS: OLANZapine 5 MG Tab PO SCH (08:09)
[2022-07-17] MEDS: atorvaSTATin 40 MG Tab PO SCH (08:09)
[2022-07-17] MEDS: Ferrous Sulfate 325 MG Tab PO SCH (08:09)
[2022-07-17] MEDS: Magnesium Oxide 500 MG Tab PO SCH ×2 (08:10→21:25)
[2022-07-17] MEDS ORDERED: Glucagon,Human Recombinant 1 MG Vial IM PRN (09:46)
[2022-07-17] MEDS ORDERED: 50% Dextrose in Water 50 ML Syringe IVPUSH PRN (09:46)
[2022-07-17] MEDS: Insulin Lispro 100 Unit/ML 3 ML KwikPen SUBCUT SCH ×2 (11:49→17:35)
[2022-07-17] MEDS: Enoxaparin 40 MG/0.4 ML Syringe SUBCUT SCH (14:10)
[2022-07-17] MEDS: lamoTRIgine 100 MG Tab PO SCH (17:26)
[2022-07-17] MEDS: fluvoxaMINE 50 MG Tab PO SCH (21:24)
[2022-07-17] MEDS: Melatonin 3 MG Tab PO SCH (21:24)
[2022-07-17] MEDS: Insulin Glargine,Hum.Rec.Anlog 100 UNIT/ML 3 ML Pen SUBCUT SCH (22:21)
[2022-07-17] MEDS: Sodium Chloride 0.9% 10 ML Syringe FLUSH PRN (23:02)
[2022-07-18] MEDS: Pantoprazole 40 MG Tab.CR PO SCH (07:40)
[2022-07-18] MEDS: Piperacillin/Tazobactam 4.5 GM in Sodium Chloride 0.9% 100 ML IV SCH ×3 (07:40→23:39)
[2022-07-18] MEDS: Insulin Lispro 100 Unit/ML 3 ML KwikPen SUBCUT SCH ×3 (08:23→18:08)
[2022-07-18] MEDS: Acetaminophen 325 MG Tab PO SCH ×4 (08:36→20:49)
[2022-07-18] MEDS: Magnesium Oxide 500 MG Tab PO SCH ×2 (08:37→20:49)
[2022-07-18] MEDS: Aspirin 81 MG Tab.EC PO SCH (08:37)
[2022-07-18] MEDS: OLANZapine 5 MG Tab PO SCH (08:37)
[2022-07-18] MEDS: Isosorbide Mononitrate 30 MG Tab.ER PO SCH (08:38)
[2022-07-18] MEDS: atorvaSTATin 40 MG Tab PO SCH (08:38)
[2022-07-18 09:20] LABS: ANION GAP 12.2 mmol/L (5-15)
[2022-07-18] MEDS: Enoxaparin 40 MG/0.4 ML Syringe SUBCUT SCH (12:15)
[2022-07-18] MEDS: Sodium Chloride 0.9% 100 ML IV SCH (12:19)
[2022-07-18] MEDS: lamoTRIgine 100 MG Tab PO SCH (17:10)
[2022-07-18] MEDS ORDERED: Iopamidol 755 Mg/ML 75 ML Bottle IVPUSH ONE (17:13)
[2022-07-18] MEDS ORDERED: Sodium Chloride 0.9% 50 ML IV SCH (17:15)
[2022-07-18] MEDS: Melatonin 3 MG Tab PO SCH (20:49)
[2022-07-18] MEDS: fluvoxaMINE 50 MG Tab PO SCH (20:49)
[2022-07-18] MEDS: Insulin Glargine,Hum.Rec.Anlog 100 UNIT/ML 3 ML Pen SUBCUT SCH (20:55)
[2022-07-18] MEDS: Sodium Chloride 0.9% 10 ML Syringe FLUSH PRN (23:36)
[2022-07-19] MEDS: Acetaminophen 325 MG Tab PO SCH ×3 (08:00→12:08)
[2022-07-19] MEDS: Magnesium Oxide 500 MG Tab PO SCH (08:00)
[2022-07-19] MEDS: OLANZapine 5 MG Tab PO SCH (08:00)
[2022-07-19] MEDS: Ascorbic Acid 500 MG Tab PO SCH (08:00)
[2022-07-19] MEDS: Pantoprazole 40 MG Tab.CR PO SCH (08:00)
[2022-07-19] MEDS: atorvaSTATin 40 MG Tab PO SCH (08:01)
[2022-07-19] MEDS: Aspirin 81 MG Tab.EC PO SCH (08:01)
[2022-07-19] MEDS: Isosorbide Mononitrate 30 MG Tab.ER PO SCH (08:01)
[2022-07-19] MEDS: Ferrous Sulfate 325 MG Tab PO SCH (08:01)
[2022-07-19] MEDS: Insulin Lispro 100 Unit/ML 3 ML KwikPen SUBCUT SCH ×2 (08:09→11:39)
[2022-07-19] MEDS: Piperacillin/Tazobactam 4.5 GM in Sodium Chloride 0.9% 100 ML IV SCH (08:09)
[2022-07-19] MEDS: Sodium Chloride 0.9% 100 ML IV SCH (08:10)
[2022-07-19] MEDS: Enoxaparin 40 MG/0.4 ML Syringe SUBCUT SCH (12:15)
[2022-07-19 13:33] VITALS: BP 134/74; PULSE 65
== END 2022-07-19 14:16 | DRG 194 ==
LOC: KA.ED 21:25 → KA.MS 22:57
PROVIDERS: ADMIT Physician Assistant Medical; ATTEND Family Medicine
DX: J18.9 Pneumonia, unspecified organism (principal); F10.27 Alcohol dependence with alcohol-induced persisting dementia; F19.20 Other psychoactive substance dependence, uncomplicated; R65.10 Systemic inflammatory response syndrome (SIRS) of non-infectious origin without acute organ dysfunction; I44.0 Atrioventricular block, first degree; I87.8 Other specified disorders of veins; I25.10 Atherosclerotic heart disease of native coronary artery without angina pectoris; E78.00 Pure hypercholesterolemia, unspecified; K59.09 Other constipation; K74.60 Unspecified cirrhosis of liver; E86.0 Dehydration; K21.9 Gastro-esophageal reflux disease without esophagitis; N40.0 Benign prostatic hyperplasia without lower urinary tract symptoms; F60.9 Personality disorder, unspecified; F41.9 Anxiety disorder, unspecified; F20.9 Schizophrenia, unspecified; G47.00 Insomnia, unspecified; Z20.822 Contact with and (suspected) exposure to COVID-19; E66.9 Obesity, unspecified; R91.1 Solitary pulmonary nodule; I12.9 Hypertensive chronic kidney disease with stage 1 through stage 4 chronic kidney disease, or unspecified chronic kidney disease; D50.9 Iron deficiency anemia, unspecified; D63.1 Anemia in chronic kidney disease; F42.9 Obsessive-compulsive disorder, unspecified; E83.42 Hypomagnesemia; G89.29 Other chronic pain; K59.00 Constipation, unspecified; N18.30 Chronic kidney disease, stage 3 unspecified; E11.22 Type 2 diabetes mellitus with diabetic chronic kidney disease; E78.5 Hyperlipidemia, unspecified; E53.8 Deficiency of other specified B group vitamins; E11.40 Type 2 diabetes mellitus with diabetic neuropathy, unspecified; Z98.890 Other specified postprocedural states; Z79.84 Long term (current) use of oral hypoglycemic drugs; Z79.899 Other long term (current) drug therapy; Z79.82 Long term (current) use of aspirin; I25.2 Old myocardial infarction; Z87.440 Personal history of urinary (tract) infections; Z86.73 Personal history of transient ischemic attack (TIA), and cerebral infarction without residual deficits; Z87.820 Personal history of traumatic brain injury; Z82.49 Family history of ischemic heart disease and other diseases of the circulatory system; Z88.8 Allergy status to other drugs, medicaments and biological substances; Z68.34 Body mass index [BMI] 34.0-34.9, adult
CPT/HCPCS: 0241U; 36415; 51701; 71045; 73630-RT; 74177; 80048; 80053; 80202; 81001; 82947; 83605; 83735; 84484; 85025; 86140; 87040; 93005; 93010; 96361; 96374; 97161-GP; 99223; 99285-25; A9270-GY; J1650; J1815-GY; J2405; J2543; J3370; J3490; J7030; J7040; J7050; Q9967

== ENCOUNTER 2022-12-07 13:43 | Emergency (ER) | payer MEDICARE, MEDICAID ==
[2022-12-07 14:44] LABS: BASOPHILS ABSOLUTE AUTO 0.01 10^3/uL (0.00-0.10); BASOPHILS PERCENT AUTO 0.2 % (0.0-1.0); EOSINOPHILS ABSOLUTE AUTO 0.54 10^3/uL (0.10-0.30); EOSINOPHILS PERCENT AUTO 8.3 % (1.0-3.0); HEMATOCRIT 31.8 % (40.0-52.0); LYMPHOCYTES ABSOLUTE AUTO 1.17 10^3/uL (1.00-4.00); MEAN CORPUSCULAR HEMOGLOBIN 24.9 pg (27.0-31.0); MEAN CORPUSCULAR HGB CONC 31.4 g/dL (32.0-36.0); MEAN CORPUSCULAR VOLUME 79.1 fL (82.0-92.0); MEAN PLATELET VOLUME 9.8 fL (7.4-10.4); MONOCYTES PERCENT AUTO 10.8 % (2.0-8.0); NEUTROPHILS ABSOLUTE AUTO 4.09 10^3/uL (2.50-7.00); NEUTROPHILS PERCENT AUTO 62.7 % (50.0-70.0); PLATELET COUNT,PLT 116 10^3/uL (150-400); RED BLOOD CELL COUNT 4.02 10^6/uL (4.50-6.00); WHITE BLOOD CELL COUNT,WBC 6.51 10^3/uL (5.00-10.00)
[2022-12-07 14:56] VITALS: BP 125/72; PULSE 62
[2022-12-07 14:57] LABS: ANION GAP 14.6 mmol/L (5-15); CALCIUM 8.5 mg/dL (8.7-10.3); CARBON DIOXIDE,CO2 23.4 mmol/L (21.0-32.0); CREATININE 1.21 mg/dL (0.51-1.17); EST CRCL DRUG DOSING (CG) 56.68 mL/min
[2022-12-07 15:34] LABS: APPEARANCE,URINE CLEAR (CLEAR); BILIRUBIN,URINE NEGATIVE (NEGATIVE); COLOR,URINE YELLOW (YELLOW); GLUCOSE,URINE NEGATIVE (NEGATIVE); KETONES,URINE NEGATIVE (NEGATIVE); LEUKOCYTE ESTERASE,URINE NEGATIVE (NEGATIVE); NITRITE,URINE NEGATIVE (NEGATIVE); OCCULT BLOOD,URINE NEGATIVE (NEGATIVE); PH,URINE 5.5 (5.0-9.0); PROTEIN,URINE NEGATIVE (NEGATIVE); UROBILINOGEN,URINE 0.2 E.U./dL (0.2-1.0)
[2022-12-07 15:35] LABS: BACTERIA,URINE RARE /HPF (NONE TO FEW); EPITHELIAL CELLS,URINE RARE /LPF; RBC,URINE 0-5 /HPF (0-5); WBC,URINE 0-5 /HPF (0-5)
[2022-12-07] MEDS ORDERED: Sodium Chloride 0.9% 1,000 ML IV ONE (15:48)
== END 2022-12-07 17:50 ==
LOC: KA.ED 13:43
DX: F03.B11 Unspecified dementia, moderate, with agitation (principal); F25.0 Schizoaffective disorder, bipolar type; R40.0 Somnolence; M25.552 Pain in left hip; R00.1 Bradycardia, unspecified; I44.0 Atrioventricular block, first degree; I25.10 Atherosclerotic heart disease of native coronary artery without angina pectoris; I10 Essential (primary) hypertension; I25.2 Old myocardial infarction; E78.00 Pure hypercholesterolemia, unspecified; K21.9 Gastro-esophageal reflux disease without esophagitis; E66.9 Obesity, unspecified; Z68.37 Body mass index [BMI] 37.0-37.9, adult; Z86.16 Personal history of COVID-19; Z91.018 Allergy to other foods; Z79.899 Other long term (current) drug therapy; Z79.82 Long term (current) use of aspirin; Z79.84 Long term (current) use of oral hypoglycemic drugs
CPT/HCPCS: 36415; 80048; 81001; 83605; 85025; 93005; 93010; 99284; 99285; C1758

== ENCOUNTER 2023-08-17 07:14 | Emergency (ER) | payer MEDICARE, MEDICAID ==
[2023-08-17 07:49] LABS: EOSINOPHILS ABSOLUTE AUTO 0.56 10^3/uL (0.10-0.30); EOSINOPHILS PERCENT AUTO 5.1 % (1.0-3.0); HEMATOCRIT 38.3 % (40.0-52.0); HEMOGLOBIN 12.6 g/dL (13.0-17.0); IMMATURE GRAN ABSOLUTE AUTO 0.01 10^3/uL (0.00-0.50); IMMATURE GRAN PERCENT AUTO 0.1 % (0.0-5.0); LYMPHOCYTES ABSOLUTE AUTO 2.13 10^3/uL (1.00-4.00); LYMPHOCYTES PERCENT AUTO 19.4 % (20.0-40.0); MEAN CORPUSCULAR HEMOGLOBIN 26.3 pg (27.0-31.0); MEAN CORPUSCULAR HGB CONC 32.9 g/dL (32.0-36.0); MEAN CORPUSCULAR VOLUME 79.8 fL (82.0-92.0); MEAN PLATELET VOLUME 9.2 fL (7.4-10.4); MONOCYTES ABSOLUTE AUTO 0.73 10^3/uL (0.10-0.80); MONOCYTES PERCENT AUTO 6.6 % (2.0-8.0); NEUTROPHILS ABSOLUTE AUTO 7.55 10^3/uL (2.50-7.00); NEUTROPHILS PERCENT AUTO 68.8 % (50.0-70.0); PLATELET COUNT,PLT 153 10^3/uL (150-400); RED CELL DISTRIBUTION WIDTH 14.6 % (11.5-14.5); WHITE BLOOD CELL COUNT,WBC 10.98 10^3/uL (5.00-10.00)
[2023-08-17 08:05] LABS: APPEARANCE,URINE CLOUDY (CLEAR); BILIRUBIN,URINE NEGATIVE (NEGATIVE); COLOR,URINE LIGHT YELLOW (YELLOW); GLUCOSE,URINE NEGATIVE (NEGATIVE); KETONES,URINE NEGATIVE (NEGATIVE); LEUKOCYTE ESTERASE,URINE TRACE (NEGATIVE); NITRITE,URINE NEGATIVE (NEGATIVE); OCCULT BLOOD,URINE NEGATIVE (NEGATIVE); PROTEIN,URINE NEGATIVE (NEGATIVE)
[2023-08-17 08:07] LABS: ANION GAP 12.2 mmol/L (5-15); BLOOD UREA NITROGEN,BUN 19 mg/dL (7-18); CALCIUM 8.5 mg/dL (8.7-10.3); CARBON DIOXIDE,CO2 28.5 mmol/L (21.0-32.0); CHLORIDE,CL 106 mmol/L (98-107); CREATININE 0.96 mg/dL (0.51-1.17); GLUCOSE RANDOM 91 mg/dL (70-140); POTASSIUM,K 3.7 mmol/L (3.5-5.1); SODIUM,NA 143 mmol/L (136-145)
[2023-08-17 08:17] LABS: ESTIMATED GFR 85 mL/min (>=60)
[2023-08-17 08:17] LABS: BACTERIA,URINE MANY /HPF (NONE TO FEW); EPITHELIAL CELLS,URINE RARE /LPF; RBC,URINE 0-5 /HPF (0-5); WBC,URINE 0-5 /HPF (0-5)
[2023-08-17] MEDS: Ondansetron 4 MG Tab.DIS PO ONE (08:43)
[2023-08-17 08:54] VITALS: BP 155/78; PULSE 87
[2023-08-17] MEDS: Acetaminophen/HYDROcodone 325-5 MG Tab PO ONE (09:01)
[2023-08-19] MEDS: Morphine 2 MG/ML SYRINGE IVPUSH ONE (11:06)
== END 2023-08-17 11:10 ==
LOC: KA.ED 07:14
DX: S00.12XA Contusion of left eyelid and periocular area, initial encounter (principal); I10 Essential (primary) hypertension; I25.10 Atherosclerotic heart disease of native coronary artery without angina pectoris; E78.00 Pure hypercholesterolemia, unspecified; E66.9 Obesity, unspecified; E11.9 Type 2 diabetes mellitus without complications; Z68.28 Body mass index [BMI] 28.0-28.9, adult; Z86.16 Personal history of COVID-19; Z79.82 Long term (current) use of aspirin; Z79.84 Long term (current) use of oral hypoglycemic drugs; Z79.899 Other long term (current) drug therapy; Z91.018 Allergy to other foods; W19.XXXA Unspecified fall, initial encounter
CPT/HCPCS: 36415; 70450; 72100; 72125; 80048; 81001; 82947; 84484; 85025; 93010; 99284; 99285; A9270-GY